=== PATIENT | male | born 1940 | race Caucasian/White ===

== ENCOUNTER 2017-12-05 11:31 | Inpatient (IN) | payer MEDICARE, BC, SELFPAY ==
[2017-12-05] VITALS (17 sets, daily range): BP systolic 127–158; BP diastolic 59–76; PULSE 60–103; RESP 14–20; TEMP 36.6–37; O2SAT 94–98; BMI 30.8; BMI 29.9
--- NOTE | 2017-12-05 11:55 | CT_ITS ---
STUDY: CT BRAIN WITHOUT CONTRAST REASON FOR EXAM: Male, 76 years old. Possible CVA. RADIATION DOSAGE (If Supplied By Facility): CTDIvol = ( 44.99 ) mGy, DLP = ( 897.35 ) mGycm TECHNIQUE: Transaxial CT imaging of the brain was performed without administration of intravenous contrast material. Individualized dose optimization techniques were used for this CT. COMPARISON: None. FINDINGS: Normal soft tissue structures. Evidence of prior bilateral frontal craniotomy and bur holes in the posterior right and left parietal bones. There is moderate cerebral atrophy with widening of the extra-axial spaces and ventricular dilatation. Area of encephalomalacia in the left posterior parietal lobe suggestive of old CVA. Old lacunar infarcts of basal ganglia bilaterally. Normal brainstem. Normal cerebellum. There is no intracranial hemorrhage. There are no findings of an acute ischemic infarction. Atherosclerotic calcification of the cavernous portion of the carotid arteries bilaterally. Mucosal thickening of the ethmoid sinuses bilaterally. CT/Brain/Head without Contrast IMPRESSION: Chronic involutional changes of the brain. Old encephalomalacia in the posterior aspect of the left parietal lobe. N.B. : The above information has been verbally conveyed by iKrit Baez MD to Mir Ortiz, Referring Physician, on 12/05/2017 12:16:38 (ET). Electronically Signed: Kirit Baez MD at 12:16 EDT Tel [phone], Service support , N.B. : The above information has been verbally conveyed by Kirit Baez MD to Mir Ortiz, Referring Physician, on 12/05/2017 12:16:38 (ET).
--- NOTE | 2017-12-05 11:55 | EKG12_ITS ---
Test Reason : POSS CVA Blood Pressure : / mmHG Vent. Rate : 057 BPM Atrial Rate : 228 BPM P-R Int : 000 ms QRS Dur : 138 ms QT Int : 432 ms P-R-T Axes : 087 070 038 degrees QTc Int : 420 ms Atrial flutter Right bundle branch block Abnormal ECG Confirmed by LOS CARDONA, ADRIAN ([id number]), web content editor PRICE YOUNG ([id number]) on 12/10/2017 9:02:49 AM Referred By: TYE Confirmed By:ADRIAN MADISON MD
--- NOTE | 2017-12-05 11:55 | RAD_ITS ---
STUDY: X-RAY CHEST REASON FOR EXAM: Male, 76 years old. Weakness. Difficulty walking. TECHNIQUE: Single AP portable view of the chest. COMPARISON: None. FINDINGS: EKG electrodes are seen. The lungs are clear and expanded. There is no demonstrated pleural abnormality. There is borderline cardiomegaly. Normal mediastinum and sergio. Normal visualized pulmonary arteries. There is atherosclerotic calcification of the aortic arch with tortuosity. Normal visualized thoracic spine. Normal visualized ribs, clavicles, and shoulders. There is no demonstrated abnormality of the visualized soft tissue structures of the upper abdomen. RAD/Chest 1 View IMPRESSION: No acute abnormality is seen. Electronically Signed: Kirit Baez MD at 12:24 EDT Tel [phone], Service support ,
[2017-12-05 12:08] LABS: Absolute Lymphocyte Count 2.88 X10^3/ul (0.83-4.51); Absolute Neutrophil Count 5.2 X10^3/uL (2.0-7.7); Basophil# 0.03 X10^3/uL; Basophil% 0.3 % (0-1); Eosinophil# 0.37 X10^3/uL; Hematocrit 41.8 % (40-54); Hemoglobin 13.8 g/dl (13.0-16.5); Lymphocyte # 2.88 X10^3/ul (4.0); Lymphocyte % 30.8 % (19-41); Mean Corpuscular Hgb 32.1 pg (27.0-32.0); Mean Corpuscular Volume 97.2 fL (80-94); Mean Platelet Vol. 10.8 fl (6.2-12.0); Monocyte# 0.87 X10^3/uL; Monocyte% 9.3 % (0-10); Neutrophil # 5.17 X10^3/uL (2.7-7.7); Neutrophil % 55.4 % (47-70); Platelet Count 215 K/mm3 (150-450); RBC Distribution Width CV 13.5 % (11.6-14.6); RBC Distribution Width SD 46.3 fl (35.1-43.9); White Blood Count 9.3 K/mm3 (4.4-11.0)
[2017-12-05] MEDS: 0.9% Normal Saline 1,000 ML 100 ML IV (12:11)
[2017-12-05 12:15] LABS: POSITIVE COUNT NO; POSITIVE DIFFERENTIAL NO; POSITIVE MORPHOLOGY NO
[2017-12-05 12:30] LABS: International Normalized Ratio 1.7; Prothrombin Time (Protime)PT. 19.7 SECONDS (11.7-14.9)
[2017-12-05 12:31] LABS: Partial Thromboplast Time 31.8 Seconds (24.1-36.2)
--- NOTE | 2017-12-05 13:22 | CT_ITS ---
STUDY: CTA OF THE BRAIN REASON FOR EXAM: Male, 76 years old. History of CVA. RADIATION DOSAGE (If Supplied By Facility): CTDIvol = ( 32.36 ) mGy, DLP = ( 765.94 ) mGycm TECHNIQUE: CT angiography was performed with a multi-detector CT scanner. Data acquisition was obtained from the skull base through the vertex following intravenous administration of 100 ml of Isovue 370. MIP images were reconstructed from the axial data set. Post-processing of the angiographic images was performed, with multiplanar reformation and 3D reconstruction. Individualized dose optimization techniques were used for this CT. COMPARISON: None. FINDINGS: Normal bilateral petrous carotid arteries. There is calcified plaque formation of the right cavernous carotid artery, without a cross-sectional luminal stenosis. There is calcified plaque formation of the left cavernous carotid artery, without a cross-sectional luminal stenosis. Normal right A1 segments of the anterior cerebral artery. Normal left A1 segments of the anterior cerebral artery. Normal intact anterior communicating artery (ACOM). Normal bilateral A2 segments of the anterior cerebral arteries. Normal right M1 and M2 segments of the middle cerebral arteries, with a normal M1 bifurcation. Normal left M1 and M2 segments of the middle cerebral arteries, with a normal M1 bifurcation. Normal right posterior communicating artery (PCOM). Normal left posterior communicating artery (PCOM). Normal bilateral vertebral arteries. Normal basilar artery with a normal basilar bifurcation. The visualized bilateral superior cerebellar (SCA) arteries are normal. Normal bilateral P1, P2 and visualized P3 segments of the posterior cerebral arteries. There is no demonstrated aneurysm of the [place]. Encephalomalacia in the left parietal lobe. This evidence of prior bilateral frontoparietal craniotomies and bilateral evacuation. Mucosal thickening of the ethmoid sinuses bilaterally. IMPRESSION: Encephalomalacia in the left frontal parietal lobe. Prior bilateral craniotomies. Electronically Signed: Kirit Baez MD at 14:57 EDT Tel [phone], Service support , STUDY: CTA NECK WITH CONTRAST REASON FOR EXAM: Male, 76 years old. Possible CVA. RADIATION DOSAGE (If Supplied By Facility): CTDIvol = ( 32.36 ) mGy, DLP = ( 765.94 ) mGycm TECHNIQUE: CT angiography with multi-detector data acquisition was performed from the aortic arch to the skull base following intravenous administration of 100CC ml of Isovue 370 contrast. MIP images were reconstructed from the axial data set. Post-processing of the angiographic images was performed, with multiplanar reformation and 3D reconstruction. Individualized dose optimization techniques were used for this CT. COMPARISON: None. FINDINGS: Inhomogeneous enlargement of both lobes of the thyroid gland. AORTIC ARCH: There is atherosclerotic calcific plaque formation of the aortic arch and great vessels arising from the aortic arch, without a hemodynamically significant stenosis. Atherosclerotic plaque formation at the origin of the left subclavian artery and right brachiocephalic artery. RIGHT CAROTID ARTERIES: Normal right common carotid artery (CCA). Normal right common carotid bulb. There is severe atherosclerotic plaque formation of the origin of the right internal carotid artery with a near complete occlusion. Normal visualized cervical portion of the right internal carotid artery. There is moderate atherosclerotic plaque formation of the origin of the right external carotid artery with an estimated stenosis of 50-69% stenosis. LEFT CAROTID ARTERIES: Normal left common carotid artery (CCA). Normal left common carotid bulb. There is severe atherosclerotic plaque formation of the origin of the left internal carotid artery with a near complete occlusion. Normal visualized cervical portion of the left internal carotid artery. There is extensive atherosclerotic plaque formation of the origin of the left external carotid artery with an estimated stenosis of greater than 70%. VERTEBRAL ARTERIES: Normal bilateral vertebral arteries. CT/CTA Neck W/WO Contrast IMPRESSION: High-grade stenosis at the origins of both right and left internal carotid arteries. Electronically Signed: Kirit Baez MD at 15:00 EDT Tel [phone], Service support ,
--- NOTE | 2017-12-05 13:22 | CT_ITS ---
STUDY: CTA OF THE BRAIN REASON FOR EXAM: Male, 76 years old. History of CVA. RADIATION DOSAGE (If Supplied By Facility): CTDIvol = ( 32.36 ) mGy, DLP = ( 765.94 ) mGycm TECHNIQUE: CT angiography was performed with a multi-detector CT scanner. Data acquisition was obtained from the skull base through the vertex following intravenous administration of 100 ml of Isovue 370. MIP images were reconstructed from the axial data set. Post-processing of the angiographic images was performed, with multiplanar reformation and 3D reconstruction. Individualized dose optimization techniques were used for this CT. COMPARISON: None. FINDINGS: Normal bilateral petrous carotid arteries. There is calcified plaque formation of the right cavernous carotid artery, without a cross-sectional luminal stenosis. There is calcified plaque formation of the left cavernous carotid artery, without a cross-sectional luminal stenosis. Normal right A1 segments of the anterior cerebral artery. Normal left A1 segments of the anterior cerebral artery. Normal intact anterior communicating artery (ACOM). Normal bilateral A2 segments of the anterior cerebral arteries. Normal right M1 and M2 segments of the middle cerebral arteries, with a normal M1 bifurcation. Normal left M1 and M2 segments of the middle cerebral arteries, with a normal M1 bifurcation. Normal right posterior communicating artery (PCOM). Normal left posterior communicating artery (PCOM). Normal bilateral vertebral arteries. Normal basilar artery with a normal basilar bifurcation. The visualized bilateral superior cerebellar (SCA) arteries are normal. Normal bilateral P1, P2 and visualized P3 segments of the posterior cerebral arteries. There is no demonstrated aneurysm of the [place]. Encephalomalacia in the left parietal lobe. This evidence of prior bilateral frontoparietal craniotomies and bilateral evacuation. Mucosal thickening of the ethmoid sinuses bilaterally. IMPRESSION: Encephalomalacia in the left frontal parietal lobe. Prior bilateral craniotomies. Electronically Signed: Kirit Baez MD at 14:57 EDT Tel [phone], Service support , STUDY: CTA NECK WITH CONTRAST REASON FOR EXAM: Male, 76 years old. Possible CVA. RADIATION DOSAGE (If Supplied By Facility): CTDIvol = ( 32.36 ) mGy, DLP = ( 765.94 ) mGycm TECHNIQUE: CT angiography with multi-detector data acquisition was performed from the aortic arch to the skull base following intravenous administration of 100CC ml of Isovue 370 contrast. MIP images were reconstructed from the axial data set. Post-processing of the angiographic images was performed, with multiplanar reformation and 3D reconstruction. Individualized dose optimization techniques were used for this CT. COMPARISON: None. FINDINGS: Inhomogeneous enlargement of both lobes of the thyroid gland. AORTIC ARCH: There is atherosclerotic calcific plaque formation of the aortic arch and great vessels arising from the aortic arch, without a hemodynamically significant stenosis. Atherosclerotic plaque formation at the origin of the left subclavian artery and right brachiocephalic artery. RIGHT CAROTID ARTERIES: Normal right common carotid artery (CCA). Normal right common carotid bulb. There is severe atherosclerotic plaque formation of the origin of the right internal carotid artery with a near complete occlusion. Normal visualized cervical portion of the right internal carotid artery. There is moderate atherosclerotic plaque formation of the origin of the right external carotid artery with an estimated stenosis of 50-69% stenosis. LEFT CAROTID ARTERIES: Normal left common carotid artery (CCA). Normal left common carotid bulb. There is severe atherosclerotic plaque formation of the origin of the left internal carotid artery with a near complete occlusion. Normal visualized cervical portion of the left internal carotid artery. There is extensive atherosclerotic plaque formation of the origin of the left external carotid artery with an estimated stenosis of greater than 70%. VERTEBRAL ARTERIES: Normal bilateral vertebral arteries. CT/CTA Head W/WO Contrast IMPRESSION: High-grade stenosis at the origins of both right and left internal carotid arteries. Electronically Signed: Kirit Baez MD at 15:00 EDT Tel [phone], Service support ,
--- NOTE | 2017-12-05 13:24 | ED.VISSUMM ---
- ER Visit Summary Date of Service: 12/05/17 Chief Complaint: Difficulty walking and speaking History of Present Illness: The patient is a 76 M who went to bed last night at 2000 hrs. At approximately 0430 hours patient got up to urinate. He had difficulty walking and family also notes difficulty speaking. He went to bed got up this morning the symptoms continued. He had difficulty eating breakfast as they state his tongue just seemed like it was in the way. He is on Coumadin for chronic atrial fibrillation. He believes he last had a checked couple weeks ago. He has had prior head bleed and underwent craniotomy in the past. He denies any headache. No recent trauma or falls. Physical Examination: Afebrile vital signs are stable Gen: Well-nourished well-developed Head: Normocephalic atraumatic Eyes: Perrl EOMI ENT: TMs clear no rhinorrhea moist mucous membranes Neck: Supple no lymphadenopathy no JVD nontender CVS: Regular rate rhythm no murmurs normal S1-S2 Respiratory: No distress clear to auscultation bilaterally chest nontender Abdomen: Soft nontender nondistended normal bowel sounds no masses Back: Nontender Extremity: Nontender no edema Skin: Normal color no rash Neuro: alert orientated ?3 patient score 6 points on the NIH stroke scale. One point for facial palsy, 2 points for right arm motor, 2 points right motor leg, one-point dysarthria. Per the patient the right arm and leg feel numb but he states the sensation is equal from side to side upon testing Psych: Normal affect normal mood Test Results: Initial head CT is negative. Basic labs were obtained which showed a subtherapeutic INR. CTA of the head and neck was obtained. Emergency Department Course and Treatment: Patient appears to have suffered a left MCA stroke. Plan is admission to PCU. I did speak with Dr. Boss from neurology and Dr. Webb from medicine Impression: 1. Acute CVA 2. Subtherapeutic INR 3. Chronic atrial flutter/fibrillation This note was generated with [employer] dictation software. It may contain incorrect words, spelling, and punctuation that were not noted in review of the chart prior to signing ED Disposition - Plan for ED Patient: Chief Complaint: Neuro S/Sx Referrals: Marisela Jensen [Primary Care Provider] -
[2017-12-05 13:46] LABS: Anion Gap 9 (5-15); BUN 23 mg/dL (7-18); BUN/Creat Ratio 28.2 RATIO (10-20); Calcium,Total 8.5 mg/dL (8.5-10.1); Chloride 110 mmol/L (98-107); Creatinine, Serum 0.82 mg/dL (0.70-1.30); EST Glomerular Filtration Rate 97 mL/min (>60); Est Glom Filt Rate - Afr Amer 117 mL/min (>60); Estimated Creatinine Clearance 79.08 ml/min; Glucose 87 mg/dL (74-106); Potassium 5.4 mmol/L (3.5-5.1); Sodium Level 143 mmol/L (136-145)
--- NOTE | 2017-12-05 14:07 | CASEMGMT ---
Social Work Note In to complete initial assessment as pt is targeted for admission. Introduced self and role at [facility]. Pt is accompanied by his and daughter in law. Reports to live with his jean one-story home with two entry steps. DME consists of a walker, cane and shower chair. Pt uses the cane at baseline. Went to [facility] at the end of 2012 following a stroke for rehabilitation. According to the pt's [id number] he has not been able to walk on his own and they feel he will need placed at discharge. They express interest in [facility]. Pt is typically independent with ADL's, but according to the daughter in law, will not always change his clothes daily or bathe daily. No signs of neglect or abuse. Pt's PCP is Dr. Jensen, and he utilizes [facility]. Pt denies mental health diagnoses, but daughter in law states he does have depression and is prescribed an antidepressant by Dr. Jensen. Denies substance use. Inform that if pt is admitted RN MARCELINA or SW on unit will assist with discharge planning. Reviewed with ED RN Gisell HEWITT. Meli Garcia, GAS SYSTEMS WORKER, BIOINFORMATICS SCIENTIST
--- NOTE | 2017-12-05 15:10 | PCM.HP.STD ---
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 (5) DM2 (diabetes mellitus, type 2) Status: Chronic Qualifiers: Diabetes mellitus care home insulin use: without terminal block assembler use (6) Hyperlipidemia Status: Chronic Qualifiers: Hyperlipidemia type: mixed hyperlipidemia Qualified Code(s): E78.2 - Mixed hyperlipidemia (7) Gout Status: Chronic (8) BPH (benign prostatic hyperplasia) Status: Acute History of Present Illness Date of Admission: 12/05/17 Chief Complaint: speech off, R sided weakness 76-year-old gentleman with past history of atrial fib/flutter, frontal craniotomy, 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 He awoke at 4:30 AM with right leg weakness and some speech difficulty. He went back to bed. Symptoms were persistent with right-sided weakness, right facial droop, and dysarthria. Family appropriately brought him to the emergency department for evaluation. The ED, the patient was hemodynamically stable and afebrile, saturating 98% on room air, blood pressure 158/64. CBC and chemistries were acceptable: Potassium 5.4 was moderately hemolyzed. INR was 1.7. Troponin was negative. Random glucose was 87. Initial NIHSS score was 6. He had facial droop and was unable to lift R arm off bed. He underwent head CT brain attack protocol which revealed old encephalomalacia in the left temporal region, as well as old basal ganglia infarct, no bleed noted. EKG revealed atrial flutter at 60 with right bundle branch block. CXR revealed borderline cardiomegaly, clear lungs. CT angiography of head and neck revealed no evidence of intracranial or extracranial significant stenoses or aneurysm. Normal bilateral vertebral and basilar arteries, some plaque of L cavernous carotid artery, without cross luminal stenosis. Normal left M1, M2 segments of left middle cerebral artery. Upon seeing the patient, he has improved. Family reports his smile is now symmetric, no more facial droop, and he is now able to grasp with right hand as well as left right arm and left lower extremity off the bed. The patient will be admitted PCU for acute L MCA distribution CVA. Past Medical History Past Medical History (Chronic Problems): Chronic Problems HTN (hypertension) (Chronic) Atrial fibrillation (Chronic) MCFP current use of anticoagulant (Chronic) DM2 (diabetes mellitus, type 2) (Chronic) Hyperlipidemia (Chronic) Gout (Chronic) Allergies Penicillins [PCN] Allergy (Verified 12/05/17 11:38) Other Home Medications: Ambulatory Orders Medication Instructions Recorded Allopurinol 300 mg PO DAILY 12/05/17 Carvedilol 6.25 mg PO BID 12/05/17 Isosorbide Mononitrate 10 mg PO BID 12/05/17 Lisinopril [Zestril] 5 mg PO DAILY 12/05/17 Metformin HCl 1,000 mg PO BID 12/05/17 Paroxetine [Paxil] 40 mg PO QHS 12/05/17 Pravastatin [Pravachol] 20 mg PO QHS 12/05/17 Tamsulosin HCl [Flomax] 0.4 mg PO DINNER 12/05/17 Warfarin [Coumadin ([facility])] 2.5 mg PO DINNER 12/05/17 Smoking Status: Never smoker Review of Systems Neurological: Reports: - - see HPI VTE Information - Inpt Only VTE Present on Admission: No VTE Mechan Device Prophylaxis: None VTE Pharm Prophylaxis ordered?: No Reason prophylaxis not ordered:: Treatment Not Indicated - already on warfarin Patient Problems: Active and Suspected Problems Acute CVA (cerebrovascular accident) (Acute) BPH (benign prostatic hyperplasia) (Acute) Subjective: Pleasant, NAD Objective: non toxic appearing - Physical Exam General: Alert, Cooperative, No apparent distress HEENT: Atraumatic, PERRLA, EOMI Oral: Moist Mucosa Neck: Supple, No JVD, Negative Carotid Bruits Lungs: Clear to auscultation Cardiovascular: Irregular Rate, No rub noted, No Gallop Abdomen: Bowel Sounds Present, Non Tender, Obese Extremities: No edema Skin: No rashes Neurological: - - face symmetric tongue midline decreased grasp 3/5 R hand, mildly decreased strength R upper and lower extremities, toes downgoing, reflexes symmetric mild dysarthria no aphasia Vital Signs Temp Pulse Resp BP Pulse Ox 98.2 F 67 18 130/65 H 94 12/05/17 12:30 12/05/17 15:00 12/05/17 15:00 12/05/17 15:00 12/05/17 15:00 Oxygen Delivery Method Room Air Weight: 220 lb 14.451 oz Body Mass Index (BMI) 30.8 Finger Stick Blood Glucose 87 Laboratory Tests Past 24 Hrs 12/05/17 12/05/17 12/05/17 11:42 11:42 11:42 WBC 9.3 RBC 4.30 L Hgb 13.8 Hct 41.8 MCV 97.2 H MCH 32.1 H MCHC 33.0 RDW 13.5 RDW Differential 46.3 H Plt Count 215 MPV 10.8 Immature Gran % (Auto) 0.200 Neut % (Auto) 55.4 Lymph % (Auto) 30.8 Mower % (Auto) 9.3 Eos % (Auto) 4.0 Baso % (Auto) 0.3 Absolute Neuts (auto) 5.2 Absolute Lymphs (auto) 2.88 Total Counted Not Reportable PT Cancelled INR Cancelled APTT Cancelled Sodium Cancelled Potassium Cancelled Chloride Cancelled Carbon Dioxide Cancelled Anion Gap Cancelled BUN Cancelled Creatinine Cancelled Estim Creat Clear Calc Cancelled Est GFR (MDRD) Af Amer Cancelled Est GFR (MDRD) Non-Af Cancelled BUN/Creatinine Ratio Cancelled Glucose Cancelled Calcium Cancelled Troponin I Cancelled 12/05/17 12/05/17 12/05/17 12:17 12:17 13:15 WBC RBC Hgb Hct MCV MCH MCHC RDW RDW Differential Plt Count MPV Immature Gran % (Auto) Neut % (Auto) Lymph % (Auto) Mower % (Auto) Eos % (Auto) Baso % (Auto) Absolute Neuts (auto) Absolute Lymphs (auto) Total Counted PT 19.7 H INR 1.7 APTT 31.8 Sodium Cancelled 143 Potassium Cancelled 5.4 H Chloride Cancelled 110 H Carbon Dioxide Cancelled 24.0 Anion Gap Cancelled 9 BUN Cancelled 23 H Creatinine Cancelled 0.82 Estim Creat Clear Calc Cancelled 79.08 Est GFR (MDRD) Af Amer Cancelled 117 Est GFR (MDRD) Non-Af Cancelled 97 BUN/Creatinine Ratio Cancelled 28.2 H Glucose Cancelled 87 Calcium Cancelled 8.5 Troponin I Cancelled < 0.02 Assessment/Plan Active and Suspected Problems Acute CVA (cerebrovascular accident) (Acute) BPH (benign prostatic hyperplasia) (Acute) 76-year-old gentleman with past history of atrial fib/flutter, frontal craniotomy, 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 Onset 4:30 AM last night, patient not a candidate for thrombolytics (outside of window and on warfarin). NIHSS score is 6. CTA of head and neck did not reveal any vessel cut off. INR is 1.7. Patient is on statin therapy. 1. Acute CVA, left MCA distribution. Presumed thromboembolic in setting of afib; small vessel disease not excluded PLAN: Admit PCU Telemetry monitoring Echocardiogram Continue warfarin Continue Pravachol, glycemic control with NovoLog scale, permissive hypertension A1c, fasting lipids in a.m. 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 Hypertension Permissive hypertension in setting of acute CVA Continue home carvedilol, Isordil, lisinopril but would not give unless SBP greater than 220 3. DM2 on metformin (s/p CTA head and neck) Novolog scale AC/HS -- resume metformin at discharge 4. HPL pravachol -- consider change to atorvastatin 40 mg HS 5. gout - allopurinol 6. DVT prophylaxis -- already anticoagulated Patient passed swallow evaluation in the ED; will initiate diabetic diet. Will hydrate a few hours post CTA examinations.
--- NOTE | 2017-12-05 15:17 | HP.PCM_ITS ---
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 (5) DM2 (diabetes mellitus, type 2) Status: Chronic Qualifiers: Diabetes mellitus fdc insulin use: without oysterman use (6) Hyperlipidemia Status: Chronic Qualifiers: Hyperlipidemia type: mixed hyperlipidemia Qualified Code(s): E78.2 - Mixed hyperlipidemia (7) Gout Status: Chronic (8) BPH (benign prostatic hyperplasia) Status: Acute History of Present Illness Date of Admission: 12/05/17 Chief Complaint: speech off, R sided weakness 76-year-old gentleman with past history of atrial fib/flutter, frontal craniotomy, 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 He awoke at 4:30 AM with right leg weakness and some speech difficulty. He went back to bed. Symptoms were persistent with right-sided weakness, right facial droop, and dysarthria. Family appropriately brought him to the emergency department for evaluation. The ED, the patient was hemodynamically stable and afebrile, saturating 98% on room air, blood pressure 158/64. CBC and chemistries were acceptable: Potassium 5.4 was moderately hemolyzed. INR was 1.7. Troponin was negative. Random glucose was 87. Initial NIHSS score was 6. He had facial droop and was unable to lift R arm off bed. He underwent head CT brain attack protocol which revealed old encephalomalacia in the left temporal region, as well as old basal ganglia infarct, no bleed noted. EKG revealed atrial flutter at 60 with right bundle branch block. CXR revealed borderline cardiomegaly, clear lungs. CT angiography of head and neck revealed no evidence of intracranial or extracranial significant stenoses or aneurysm. Normal bilateral vertebral and basilar arteries, some plaque of L cavernous carotid artery, without cross luminal stenosis. Normal left M1, M2 segments of left middle cerebral artery. Upon seeing the patient, he has improved. Family reports his smile is now symmetric, no more facial droop, and he is now able to grasp with right hand as well as left right arm and left lower extremity off the bed. The patient will be admitted PCU for acute L MCA distribution CVA. Past Medical History Past Medical History (Chronic Problems): Chronic Problems HTN (hypertension) (Chronic) Atrial fibrillation (Chronic) shelter current use of anticoagulant (Chronic) DM2 (diabetes mellitus, type 2) (Chronic) Hyperlipidemia (Chronic) Gout (Chronic) Allergies Penicillins [PCN] Allergy (Verified 12/05/17 11:38) Other Home Medications: Ambulatory Orders Medication Instructions Recorded Allopurinol 300 mg PO DAILY 12/05/17 Carvedilol 6.25 mg PO BID 12/05/17 Isosorbide Mononitrate 10 mg PO BID 12/05/17 Lisinopril [Zestril] 5 mg PO DAILY 12/05/17 Metformin HCl 1,000 mg PO BID 12/05/17 Paroxetine [Paxil] 40 mg PO QHS 12/05/17 Pravastatin [Pravachol] 20 mg PO QHS 12/05/17 Tamsulosin HCl [Flomax] 0.4 mg PO DINNER 12/05/17 Warfarin [Coumadin ([facility])] 2.5 mg PO DINNER 12/05/17 Smoking Status: Never smoker Review of Systems Neurological: Reports: - - see HPI VTE Information - Inpt Only VTE Present on Admission: No VTE Mechan Device Prophylaxis: None VTE Pharm Prophylaxis ordered?: No Reason prophylaxis not ordered:: Treatment Not Indicated - already on warfarin Patient Problems: Active and Suspected Problems Acute CVA (cerebrovascular accident) (Acute) BPH (benign prostatic hyperplasia) (Acute) Subjective: Pleasant, NAD Objective: non toxic appearing - Physical Exam General: Alert, Cooperative, No apparent distress HEENT: Atraumatic, PERRLA, EOMI Oral: Moist Mucosa Neck: Supple, No JVD, Negative Carotid Bruits Lungs: Clear to auscultation Cardiovascular: Irregular Rate, No rub noted, No Gallop Abdomen: Bowel Sounds Present, Non Tender, Obese Extremities: No edema Skin: No rashes Neurological: - - face symmetric tongue midline decreased grasp 3/5 R hand, mildly decreased strength R upper and lower extremities, toes downgoing, reflexes symmetric mild dysarthria no aphasia Vital Signs Temp Pulse Resp BP Pulse Ox 98.2 F 67 18 130/65 H 94 12/05/17 12:30 12/05/17 15:00 12/05/17 15:00 12/05/17 15:00 12/05/17 15:00 Oxygen Delivery Method Room Air Weight: 220 lb 14.451 oz Body Mass Index (BMI) 30.8 Finger Stick Blood Glucose 87 Laboratory Tests Past 24 Hrs 12/05/17 12/05/17 12/05/17 11:42 11:42 11:42 WBC 9.3 RBC 4.30 L Hgb 13.8 Hct 41.8 MCV 97.2 H MCH 32.1 H MCHC 33.0 RDW 13.5 RDW Differential 46.3 H Plt Count 215 MPV 10.8 Immature Gran % (Auto) 0.200 Neut % (Auto) 55.4 Lymph % (Auto) 30.8 [place] % (Auto) 9.3 Eos % (Auto) 4.0 Baso % (Auto) 0.3 Absolute Neuts (auto) 5.2 Absolute Lymphs (auto) 2.88 Total Counted Not Reportable PT Cancelled INR Cancelled APTT Cancelled Sodium Cancelled Potassium Cancelled Chloride Cancelled Carbon Dioxide Cancelled Anion Gap Cancelled BUN Cancelled Creatinine Cancelled Estim Creat Clear Calc Cancelled Est GFR (MDRD) Af Amer Cancelled Est GFR (MDRD) Non-Af Cancelled BUN/Creatinine Ratio Cancelled Glucose Cancelled Calcium Cancelled Troponin I Cancelled 12/05/17 12/05/17 12/05/17 12:17 12:17 13:15 WBC RBC Hgb Hct MCV MCH MCHC RDW RDW Differential Plt Count MPV Immature Gran % (Auto) Neut % (Auto) Lymph % (Auto) [place] % (Auto) Eos % (Auto) Baso % (Auto) Absolute Neuts (auto) Absolute Lymphs (auto) Total Counted PT 19.7 H INR 1.7 APTT 31.8 Sodium Cancelled 143 Potassium Cancelled 5.4 H Chloride Cancelled 110 H Carbon Dioxide Cancelled 24.0 Anion Gap Cancelled 9 BUN Cancelled 23 H Creatinine Cancelled 0.82 Estim Creat Clear Calc Cancelled 79.08 Est GFR (MDRD) Af Amer Cancelled 117 Est GFR (MDRD) Non-Af Cancelled 97 BUN/Creatinine Ratio Cancelled 28.2 H Glucose Cancelled 87 Calcium Cancelled 8.5 Troponin I Cancelled < 0.02 Assessment/Plan Active and Suspected Problems Acute CVA (cerebrovascular accident) (Acute) BPH (benign prostatic hyperplasia) (Acute) 76-year-old gentleman with past history of atrial fib/flutter, frontal craniotomy, 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 Onset 4:30 AM last night , patient not a candidate for thrombolytics (outside of window and on warfarin) . NIHSS score is 6. CTA of head and neck did not reveal any vessel cut off. INR is 1.7. Patient is on statin therapy. 1. Acute CVA, left MCA distribution. Presumed thromboembolic in setting of afib; small vessel disease not excluded PLAN: Admit PCU Telemetry monitoring Echocardiogram Continue warfarin Continue Pravachol, glycemic control with NovoLog scale, permissive hypertension A1c, fasting lipids in a.m. 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 Hypertension Permissive hypertension in setting of acute CVA Continue home carvedilol, Isordil, lisinopril but would not give unless SBP greater than 220 3. DM2 on metformin (s/p CTA head and neck) Novolog scale AC/HS -- resume metformin at discharge 4. HPL pravachol -- consider change to atorvastatin 40 mg HS 5. gout - allopurinol 6. DVT prophylaxis -- already anticoagulated Patient passed swallow evaluation in the ED; will initiate diabetic diet. Will hydrate a few hours post CTA examinations.
--- NOTE | 2017-12-05 16:23 | ECHOD_ITS ---
Reason For Study: TIA/Stroke Procedure This was a 2D Doppler, Color Flow transthoracic echocardiogram. The study was technically difficult. Attempted bubble study twice. Exam performed portable in patient room. Left Ventricle Normal LV size. Left ventricular systolic function is normal. The estimated ejection fraction is 55 %. Unable to assess diastolic dysfunction. Right Ventricle Mildly dilated right ventricle. Normal systolic function. Atria The left atrium is moderately enlarged. Normal right atrium. Mitral Valve There is mild to moderate mitral annular calcification. Normal mitral valve. Tricuspid Valve Normal tricuspid valve. Mild to moderate (1-2+) tricuspid valve insufficiency. Pulmonary artery systolic pressure is 51 mmHg. Aortic Valve Trisinus/trileaflet aortic valve. Mild focal aortic valve calcification. Pulmonic Valve Normal pulmonic valve. Trivial pulmonic valve insufficiency. Great Vessels Normal aortic root. The pulmonary artery is normal size. Normal inferior vena cava. Pericardium/Pleural No pericardial effusion. Medication Performed a rapid injection of agitated mix of 9 cc saline and 1cc air to assess for atrial septal defect. MMode/2D Measurements & Calculations LVIDd: 4.1 cm IVSd: 1.2 cm Ao root diam: 3.1 cm LVIDs: 2.4 cm LVPWd: 1.1 cm LA dimension: 5.4 cm FS: 40.8 % LAV(MOD-bp): 63.5 ml LAV(MOD-bp) Indexed: 28.9 ml/m2 LA A4 area: 26.5 cm2 RA A4 area: 22.9 cm2 LAV(MOD-sp2): 56.8 ml LAV(MOD-sp4): 71.3 ml Doppler Measurements & Calculations MV E max eleno: 102.4 cm/sec Ao V2 max: 131.4 cm/sec LV V1 max: 95.0 cm/sec Ao max P.9 mmHg LV V1 max P.6 mmHg Ao V2 mean: 85.1 cm/sec Ao mean P.3 mmHg Ao V2 VTI: 26.0 cm PA V2 max: 79.5 cm/sec PI end-d eleno: 91.3 cm/sec TR max eleno: 339.0 cm/sec TR max P.1 mmHg Interpretation Summary Normal LV size. Left ventricular systolic function is normal. The estimated ejection fraction is 55 %. The left atrium is moderately enlarged. Mild to moderate (1-2+) tricuspid valve insufficiency. Ordering Physician: Brittany Webb Referring Physician: Marisela Jensen Performed By: Valeria Vallecillo, STACY, RVT
--- NOTE | 2017-12-05 16:23 | MRI_ITS ---
STUDY: MRI BRAIN WITHOUT CONTRAST REASON FOR EXAM: Male, 76 years old. CVA, leg weakness. TECHNIQUE: Standardized multiplanar fat and water weighted pulse sequences were obtained. COMPARISON: None. FINDINGS: There is moderate cerebral atrophy with widening of the extra-axial spaces and ventricular dilatation. There are multiple white matter hyperintensities, distributed throughout the deep white matter tracts of the cerebral hemispheres, consistent with moderate chronic white matter ischemic changes. There is left predominantly parietal encephalomalacia from previous infarct. Bilateral temporal blooming artifact from postsurgical changes of the calvarium are present. There is no evidence for recent intracranial ischemia or other cause of cytotoxic edema on diffusion weighted imaging (DWI). Normal bilateral basal ganglia. Normal thalami. There is no extra-axial fluid accumulation. Normal flow voids within the major intracranial circulation suggesting patency by spin echo criteria. Normal sella turcica, pituitary gland, infundibular stalk, optic chiasm and hypothalamus. Normal tectal plate and pineal gland. There are chronic white matter ischemic changes of the robert. The midbrain and medulla are otherwise normal. Normal cerebellum. There are large basal cisterns. Small left mastoid effusion is present. Normal bilateral internal auditory canals. No demonstrated orbital abnormality, within the constraints of a routine brain study. Normal visualized paranasal sinuses. Normal calvarium and skull base. Normal visualized soft tissue structures. Normal visualized upper cervical spine. MRI/Brain without Contrast IMPRESSION: 1. Left parietal encephalomalacia with no evidence of surrounding acute ischemia or intraparenchymal bleed. Senescent changes as above. Electronically Signed: Eric Rodarte DO at 20:34 EDT , Service support ,
[2017-12-05 17:12] LABS: Thyroid Stim Hormone (TSH) 2.07 uIU/mL (0.358-3.74)
--- NOTE | 2017-12-05 17:19 | ED.RN ---
lab called and stated that glucose did not go through at correct time. 87 result was from 12:15 pm.
[2017-12-05 17:31] LABS: Bedside Glucose 87 mg/dL (70-110)
[2017-12-05 17:40] LABS: Bedside Glucose 126 mg/dL (70-110)
[2017-12-05] MEDS: Tamsulosin HCl 0.4 MG Capsule PO (18:43)
[2017-12-05 20:51] LABS: Bedside Glucose 150 mg/dL (70-110)
[2017-12-05] MEDS: Carvedilol 6.25 MG Tablet PO (21:06)
[2017-12-05] MEDS: Pravastatin 20 MG Tablet PO (21:06)
[2017-12-05] MEDS: Isosorbide Mononitrate 20 MG Tablet 10 MG PO (21:07)
[2017-12-06] VITALS (12 sets, daily range): BP systolic 121–151; BP diastolic 60–89; PULSE 56–77; RESP 16–17; TEMP 36.6–36.9; O2SAT 92–98; BMI 29.9
[2017-12-06 06:10] LABS: Absolute Lymphocyte Count 3.33 X10^3/ul (0.83-4.51); Absolute Neutrophil Count 4.3 X10^3/uL (2.0-7.7); Basophil# 0.02 X10^3/uL; Basophil% 0.2 % (0-1); Eosinophil# 0.38 X10^3/uL; Eosinophils% 4.4 % (0-5); Hematocrit 38.6 % (40-54); Hemoglobin 12.9 g/dl (13.0-16.5); Lymphocyte # 3.33 X10^3/ul (4.0); Lymphocyte % 38.5 % (19-41); Mean Corp Hgb Conc 33.4 g/gl (32-36); Mean Corpuscular Hgb 32.7 pg (27.0-32.0); Mean Corpuscular Volume 97.7 fL (80-94); Mean Platelet Vol. 10.1 fl (6.2-12.0); Monocyte# 0.62 X10^3/uL; Monocyte% 7.2 % (0-10); Neutrophil # 4.27 X10^3/uL (2.7-7.7); Neutrophil % 49.5 % (47-70); Platelet Count 194 K/mm3 (150-450); RBC Distribution Width CV 13.7 % (11.6-14.6); RBC Distribution Width SD 48.8 fl (35.1-43.9); Red Blood Count 3.95 M/mm3 (4.6-6.2); White Blood Count 8.6 K/mm3 (4.4-11.0)
[2017-12-06 06:11] LABS: POSITIVE COUNT NO; POSITIVE DIFFERENTIAL NO; POSITIVE MORPHOLOGY NO
[2017-12-06 06:32] LABS: Anion Gap 7 (5-15); BUN 18 mg/dL (7-18); BUN/Creat Ratio 20.6 RATIO (10-20); Calcium,Total 8.2 mg/dL (8.5-10.1); Chloride 109 mmol/L (98-107); Cholesterol 102 mg/dL (200); Creatinine, Serum 0.87 mg/dL (0.70-1.30); EST Glomerular Filtration Rate 90 mL/min (>60); Est Glom Filt Rate - Afr Amer 109 mL/min (>60); Estimated Creatinine Clearance 74.53 ml/min; Glucose 106 mg/dL (74-106); High Density Lipoprotein 30 mg/dL; Magnesium 1.6 mg/dL (1.6-2.6); Potassium 4.2 mmol/L (3.5-5.1); Sodium Level 143 mmol/L (136-145); Triglycerides 178 mg/dL; Very Low Density Lipoprotein 36 mg/dL (5-40)
[2017-12-06 06:51] LABS: Bedside Glucose 112 mg/dL (70-110)
--- NOTE | 2017-12-06 07:24 | PCM.PROGNOTE ---
Patient Problems: Active and Suspected Problems Acute CVA (cerebrovascular accident) (Acute) BPH (benign prostatic hyperplasia) (Acute) Subjective: Patient is a 76-year-old male with a past medical history of hypertension, chronic atrial fibrillation, chronic anticoagulation, diabetes mellitus type 2, hyperlipidemia, MELISSA (non-compliant with CPAP recently) gout, frontal craniotomy for subdural hematoma, history of CVAs of the basal ganglion and left MCA distribution and BPH who presented to the [facility] emergency room on 12/05/2017 with complaints of right-sided weakness and difficulty speaking. CT brain in the emergency room revealed old encephalomalacia in the left temporal region, old basal ganglia infarct and no acute findings. EKG showed atrial flutter at 60 bpm with a right bundle branch block. Chest x-ray showed no infiltrates, pleural effusions or pulmonary vascular congestion. CTA of the head and neck showed no evidence of intracranial or extracranial significant stenoses or aneurysm. INR was subtherapeutic at 1.7. He was admitted to PCU with a dx of suspected acute L MCA distribution CVA. MRI on 12/05 showed no acute findings but it was done soon after the initial event. Dr. Boss has been consulted. Echocardiogram shows a normal left ventricular ejection fraction of 55% with no wall motion abnormalities and no evidence of left ventricular hypertrophy. The left atrium is moderately enlarged. There is mild to moderate TR. HDL was 30 and the LDL was 36 with triglycerides of 178. TSH was normal. He was seen by Dr. Boss this AM who ordered a EEG which has been done but there is no report yet. His tells me that his speech today is more slurred and his R side is definitely weaker than prior to yesterday. He was ambulating without an assistive device at home prior to this event. Has had no problem swallowing in the past. - Physical Exam General: Alert, Cooperative, Well developed, Well nourished, - - speech is dysarthric and difficult to understand at times. HEENT: Atraumatic, PERRLA, EOMI, Normocephalic Oral: No Gingival or Mucosal Lesions/ Ulcerations, Dry Mucosa - tongue protrudes on the midline without deviation Neck: Supple, No Nodes, No Nuchal Rigidity, Trachea Midline, Carotid Bruit, Right - soft Lungs: Clear to auscultation, No wheeze, No rales Cardiovascular: Regular rate, Normal S1, Normal S2, No murmurs, Irregular Rate, No rub noted, No Gallop, - - Telemetry shows fib/flutter with controlled VR Abdomen: Bowel Sounds Present, Soft, Non Tender, Non-Distended Extremities: No clubbing, No cyanosis, No edema, No Calf Tenderness, Peripheral Pulses Normal Skin: No rashes, No breakdown Musculoskeletal: No Muscle Wasting Neurological: Cranial nerves II-XII grossly intact, - - He has weakness of the RUE 3/5...with drift. The RLE is 4/5. Has ataxia with the RLE. No R side neglect. No aphasia, no visual field cuts. Psych/Mental Status: Normal Affect, Appropriate Vital Signs Temp Pulse Resp BP Pulse Ox 97.9 F 69 17 151/89 H 92 12/06/17 05:00 12/06/17 05:00 12/06/17 05:00 12/06/17 05:00 12/06/17 05:00 Oxygen Delivery Method Room Air Weight: 214 lb 4.629 oz Body Mass Index (BMI) 29.9 Intake and Output for Last 24 Hours 12/04/17 12/05/17 12/06/17 23:59 23:59 23:59 Intake Total 120 / 120 360 / 360 Output Total 750 / 750 Balance 120 / 120 -390 / -390 Laboratory Tests Past 24 Hrs 12/05/17 12/06/17 12/06/17 16:38 05:45 05:45 WBC 8.6 RBC 3.95 L Hgb 12.9 L Hct 38.6 L MCV 97.7 H MCH 32.7 H MCHC 33.4 RDW 13.7 RDW Differential 48.8 H Plt Count 194 MPV 10.1 Immature Gran % (Auto) 0.200 Neut % (Auto) 49.5 Lymph % (Auto) 38.5 [place] % (Auto) 7.2 Eos % (Auto) 4.4 Baso % (Auto) 0.2 Absolute Neuts (auto) 4.3 Absolute Lymphs (auto) 3.33 Total Counted Not Reportable Sodium 143 Potassium 4.2 Chloride 109 H Carbon Dioxide 27.0 Anion Gap 7 BUN 18 Creatinine 0.87 Estim Creat Clear Calc 74.53 Est GFR (MDRD) Af Amer 109 Est GFR (MDRD) Non-Af 90 BUN/Creatinine Ratio 20.6 H Glucose 106 Hemoglobin A1c Calcium 8.2 L Magnesium 1.6 Troponin I < 0.02 Triglycerides 178 Cholesterol 102 LDL Cholesterol 36 VLDL Cholesterol 36 HDL Cholesterol 30 L TSH 2.07 12/06/17 05:45 WBC RBC Hgb Hct MCV MCH MCHC RDW RDW Differential Plt Count MPV Immature Gran % (Auto) Neut % (Auto) Lymph % (Auto) [place] % (Auto) Eos % (Auto) Baso % (Auto) Absolute Neuts (auto) Absolute Lymphs (auto) Total Counted Sodium Potassium Chloride Carbon Dioxide Anion Gap BUN Creatinine Estim Creat Clear Calc Est GFR (MDRD) Af Amer Est GFR (MDRD) Non-Af BUN/Creatinine Ratio Glucose Hemoglobin A1c Pending Calcium Magnesium Troponin I Triglycerides Cholesterol LDL Cholesterol VLDL Cholesterol HDL Cholesterol TSH POC Glucose 12/06/17 12/05/17 12/05/17 06:43 20:43 17:37 POC Glucose 112 H 150 H 126 H Medical Necessity - Tobacco Use Smoking Status: Never smoker Assessment/Plan Active and Suspected Problems Acute CVA (cerebrovascular accident) (Acute) BPH (benign prostatic hyperplasia) (Acute) Impressions 1. suspect he did have a L MCA stroke - deficits and dysarthria are definitely worse per his and he required max assist to ambulate today without an AD and assist of one with FWW....normally does not use an AD in the house but takes a cane when he leaves the house. He is unsteady standing. PT feels he would benefit from a SNF.....possibly rehab 2. subtherapeutic INR 3. MELISSA - non-compliant with CPAP and has not had a sleep study for > 10 years 4. Hx of subdural hematoma in the past with craniotomy to evacuate 5. old Left MCA stroke 6. CAF - rate controlled. 7. LAE 8. chronic anticoagulation with Warfarin - Agreeable to Apixaban going forward 9. HTN 10. DM II - controlled with a HGBA1C of 6.7% 11. Hypomagnesemia 12. Hyperlipidemia-controlled 13. BPH DC warfarin and check the INR in the AM....if it is less than 2 start Eliquis Supplement magnesium to keep the mag around 2. Await the results of the EEG appreciate Dr. Boss's input Recheck the lab in the AM check a UA Will need a new PSG - he is agreeable Consider repeat CTB in 48 hours Code Visit Inpatient E&M: 74272 Subs Hosp L3
[2017-12-06 09:32] LABS: Hemoglobin A1c 6.7 % (4.2-6.3)
--- NOTE | 2017-12-06 10:13 | CON.PCM_ITS ---
Reason for Consult Date of Consultation: 12/06/17 Reason for Consultation: cva History of Present Illness: The patient is a 76 year old right handed male with history of left mca infarct , lives at home independent with with. reports since he has had increaseing difficulty starting with difficulty getting out of bed and increased right sided weakness which has slowly improved. also reports his language is worse since . on coumadin for afib, inr subtherapeutic upon presentation, pt reports good compliance with meds. reports sdh/crani '14,(on coumadin) treated in [place], cva about '16. 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 He awoke at 4:30 AM with right leg weakness and some speech difficulty. He went back to bed. Symptoms were persistent with right-sided weakness, right facial droop, and dysarthria. Family appropriately brought him to the emergency department for evaluation. The ED, the patient was hemodynamically stable and afebrile, saturating 98% on room air, blood pressure 158/64. CBC and chemistries were acceptable: Potassium 5.4 was moderately hemolyzed. INR was 1.7. Troponin was negative. Random glucose was 87. Initial NIHSS score was 6. He had facial droop and was unable to lift R arm off bed. He underwent head CT brain attack protocol which revealed old encephalomalacia in the left temporal region, as well as old basal ganglia infarct, no bleed noted. EKG revealed atrial flutter at 60 with right bundle branch block. CXR revealed borderline cardiomegaly, clear lungs. CT angiography of head and neck revealed no evidence of intracranial or extracranial significant stenoses or aneurysm. Normal bilateral vertebral and basilar arteries, some plaque of L cavernous carotid artery, without cross luminal stenosis. Normal left M1, M2 segments of left middle cerebral artery. Upon seeing the patient, he has improved. Family reports his smile is now symmetric, no more facial droop, and he is now able to grasp with right hand as well as left right arm and left lower extremity off the bed. The patient will be admitted PCU for acute L MCA distribution CVA. 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) DM2 (diabetes mellitus, type 2) (Chronic) Hyperlipidemia (Chronic) Gout (Chronic) Allergies Penicillins [PCN] Allergy (Verified 12/05/17 11:38) Other Home Medications: Ambulatory Orders Medication Instructions Recorded Allopurinol 300 mg PO DAILY 12/05/17 Carvedilol 6.25 mg PO BID 12/05/17 Isosorbide Mononitrate 10 mg PO BID 12/05/17 Lisinopril [Zestril] 5 mg PO DAILY 12/05/17 Metformin HCl 1,000 mg PO BID 12/05/17 Paroxetine [Paxil] 40 mg PO QHS 12/05/17 Pravastatin [Pravachol] 20 mg PO QHS 12/05/17 Tamsulosin HCl [Flomax] 0.4 mg PO DINNER 12/05/17 Warfarin [Coumadin ([facility])] 2.5 mg PO DINNER 12/05/17 Lives: Spouse/ Significant Other Smoking Status: Never smoker Alcohol: None Review of Systems Constitutional: Denies: Chills, Fever, Weight Change HEENT: Denies: Head Aches, Sinus Congestion, Sinus Drainage Cardiovascular: Denies: Chest Pain, Palpitations Respiratory: Denies: Cough, Shortness of breath at rest, Sputum production Gastrointestinal: Denies: Abdominal Pain, Nausea, Vomiting Genitourinary: Denies: Dysuria Musculoskeletal: Denies: Joint Pain, Joint Tenderness Skin: Denies: Rash, Wounds Neurological: Denies: Numbness, Tingling, Focal weakness Psychiatric: Denies: Anxiety, Depression, Homicidal Ideations, Suicidal Ideations Hematologic/ Lymphatic: Denies: Easy Bruising, Easy Bleeding Patient Problems: Active and Suspected Problems Acute CVA (cerebrovascular accident) (Acute) BPH (benign prostatic hyperplasia) (Acute) - Physical Exam General: Alert, Oriented x3, Cooperative, No apparent distress Neurological: - - mild right hemiparesis dysarthric no field cut no aphasia Vital Signs Temp Pulse Resp BP Pulse Ox 36.9 C 75 16 126/61 H 95 12/06/17 09:00 12/06/17 09:00 12/06/17 09:00 12/06/17 09:00 12/06/17 09:00 Oxygen Delivery Method Room Air Weight: 97.2 kg Body Mass Index (BMI) 29.9 Intake and Output for Last 24 Hours 12/04/17 12/05/17 12/06/17 23:59 23:59 23:59 Intake Total 120 / 120 360 / 360 Output Total 750 / 750 Balance 120 / 120 -390 / -390 Laboratory Tests Past 24 Hrs 12/05/17 12/06/17 12/06/17 16:38 05:45 05:45 WBC 8.6 RBC 3.95 L Hgb 12.9 L Hct 38.6 L MCV 97.7 H MCH 32.7 H MCHC 33.4 RDW 13.7 RDW Differential 48.8 H Plt Count 194 MPV 10.1 Immature Gran % (Auto) 0.200 Neut % (Auto) 49.5 Lymph % (Auto) 38.5 [place] % (Auto) 7.2 Eos % (Auto) 4.4 Baso % (Auto) 0.2 Absolute Neuts (auto) 4.3 Absolute Lymphs (auto) 3.33 Total Counted Not Reportable Sodium 143 Potassium 4.2 Chloride 109 H Carbon Dioxide 27.0 Anion Gap 7 BUN 18 Creatinine 0.87 Estim Creat Clear Calc 74.53 Est GFR (MDRD) Af Amer 109 Est GFR (MDRD) Non-Af 90 BUN/Creatinine Ratio 20.6 H Glucose 106 Hemoglobin A1c Calcium 8.2 L Magnesium 1.6 Troponin I < 0.02 Triglycerides 178 Cholesterol 102 LDL Cholesterol 36 VLDL Cholesterol 36 HDL Cholesterol 30 L TSH 2.07 12/06/17 05:45 WBC RBC Hgb Hct MCV MCH MCHC RDW RDW Differential Plt Count MPV Immature Gran % (Auto) Neut % (Auto) Lymph % (Auto) [place] % (Auto) Eos % (Auto) Baso % (Auto) Absolute Neuts (auto) Absolute Lymphs (auto) Total Counted Sodium Potassium Chloride Carbon Dioxide Anion Gap BUN Creatinine Estim Creat Clear Calc Est GFR (MDRD) Af Amer Est GFR (MDRD) Non-Af BUN/Creatinine Ratio Glucose Hemoglobin A1c 6.7 H Calcium Magnesium Troponin I Triglycerides Cholesterol LDL Cholesterol VLDL Cholesterol HDL Cholesterol TSH POC Glucose 12/06/17 12/05/17 12/05/17 06:43 20:43 17:37 POC Glucose 112 H 150 H 126 H mri reviewed, left mca distribution encephalomalacia, no acute, also right peduncular chronic infarct Assessment/Plan Active and Suspected Problems Acute CVA (cerebrovascular accident) (Acute) BPH (benign prostatic hyperplasia) (Acute) chronic, right mild hemiparesis due to old left mca infarct, also right crani due to sdh, on coumadin for afib, inr subtherapeutic no new infarct on mri check eeg, possible decompensation due to seizure or metabolic perturbation conisder keppra 500mg bid check ua consider eliquis instead of coumadin
[2017-12-06] MEDS: Carvedilol 6.25 MG Tablet PO ×2 (10:32→20:59)
[2017-12-06] MEDS: Lisinopril 5 MG Tablet PO (10:32)
[2017-12-06] MEDS: Allopurinol 300 MG Tablet PO (10:32)
[2017-12-06] MEDS: Isosorbide Mononitrate 20 MG Tablet 10 MG PO ×2 (12:40→20:59)
[2017-12-06 12:45] LABS: Bedside Glucose 150 mg/dL (70-110)
--- NOTE | 2017-12-06 15:45 | CASEMGMT ---
Family was here, asked to speak w/SW, family is interested in inpt rehab now. SW called inpt rehab, message left. SW called , message left, let her know SW will follow up w/her tomorrow. CONCEPCION Olsen, CANVAS SHRINKER
[2017-12-06] MEDS: Tamsulosin HCl 0.4 MG Capsule PO ×2 (17:26)
[2017-12-06 17:36] LABS: Bedside Glucose 136 mg/dL (70-110)
[2017-12-06] MEDS: Pravastatin 20 MG Tablet PO (21:00)
[2017-12-06 21:11] LABS: Bedside Glucose 143 mg/dL (70-110)
[2017-12-07] VITALS (7 sets, daily range): BP systolic 99–145; BP diastolic 65–74; PULSE 60–77; RESP 16–20; TEMP 36.4–36.7; O2SAT 93–96; BMI 29.9
--- NOTE | 2017-12-07 07:04 | PCM.PROGNOTE ---
Patient Problems: Active and Suspected Problems Acute CVA (cerebrovascular accident) (Acute) BPH (benign prostatic hyperplasia) (Acute) Subjective: Afebrile, stable vital signs. - Physical Exam Vital Signs Temp Pulse Resp BP Pulse Ox 97.5 F L 61 16 144/66 H 93 12/07/17 03:54 12/07/17 03:54 12/07/17 03:54 12/07/17 03:54 12/07/17 03:54 Oxygen Delivery Method Room Air Weight: 214 lb 4.629 oz Body Mass Index (BMI) 29.9 Intake and Output for Last 24 Hours 12/05/17 12/06/17 12/07/17 23:59 23:59 23:59 Intake Total 120 / 120 940 / 940 50 / 50 Output Total 1400 / 1400 350 / 350 Balance 120 / 120 -460 / -460 -300 / -300 Laboratory Tests Past 24 Hrs 12/06/17 05:45 Hemoglobin A1c 6.7 H POC Glucose 12/06/17 12/06/17 12/06/17 20:57 17:24 12:38 POC Glucose 143 H 136 H 150 H Medical Necessity - Tobacco Use Smoking Status: Never smoker Assessment/Plan Active and Suspected Problems Acute CVA (cerebrovascular accident) (Acute) BPH (benign prostatic hyperplasia) (Acute)
[2017-12-07 07:11] LABS: Hematocrit 39.9 % (40-54); Mean Corp Hgb Conc 32.6 g/gl (32-36); Mean Corpuscular Hgb 31.8 pg (27.0-32.0); Mean Corpuscular Volume 97.6 fL (80-94); Mean Platelet Vol. 10.2 fl (6.2-12.0); Platelet Count 191 K/mm3 (150-450); RBC Distribution Width CV 13.7 % (11.6-14.6); RBC Distribution Width SD 48.6 fl (35.1-43.9); Red Blood Count 4.09 M/mm3 (4.6-6.2); White Blood Count 8.5 K/mm3 (4.4-11.0)
[2017-12-07 07:12] LABS: Scan Indicated on CBC? Y/N NO
[2017-12-07 07:18] LABS: Prothrombin Time (Protime)PT. 22.6 SECONDS (11.7-14.9)
[2017-12-07 07:22] LABS: Anion Gap 9 (5-15); BUN 14 mg/dL (7-18); BUN/Creat Ratio 18.1 RATIO (10-20); Calcium,Total 8.4 mg/dL (8.5-10.1); Chloride 108 mmol/L (98-107); Creatinine, Serum 0.78 mg/dL (0.70-1.30); EST Glomerular Filtration Rate 103 mL/min (>60); Est Glom Filt Rate - Afr Amer 124 mL/min (>60); Estimated Creatinine Clearance 64.84 ml/min; Glucose 119 mg/dL (74-106); Magnesium 1.9 mg/dL (1.6-2.6); Potassium 4.1 mmol/L (3.5-5.1); Sodium Level 144 mmol/L (136-145)
[2017-12-07] MEDS: Magnesium Oxide 400 MG Tablet PO (07:53)
[2017-12-07] MEDS: Aspirin 81 MG TAB.CHEW PO (07:53)
--- NOTE | 2017-12-07 09:22 | CASEMGMT ---
Addendum entered by Kamla Bo 12/07/17 09:58: SW spoke w/Nayely in rehab, they can take pt today. SW informed physician. SW tried to reach , SW got the voicemail. SW spoke w/pt, let him know inpt rehab has accepted pt and he can go today. Pt agreeable. SW explained has not been able to reach pt's , asked if okay to call his son, pt is fine with this. Pt states his will be in to visit today. SW called pt's son, Placido. SW let him know pt can go to inpt rehab today, explained was not able to reach pt's to let her know, wanted to let someone in family know. Son states he and pt's will be in about 12pm today to see pt. No further needs, pt to rehab today, green sheet will be placed on chart. CONCEPCION Olsen, FOREPART LASTER Original Note: As per physician, pt is ready for discharge, and would be a good candidate for inpt rehab, she spoke w/family and they are in agreement with this. SW called Nayely in rehab, she states will call Dr. Boss and let this SW know. SW will continue to follow. CONCEPCION Olsen, FOREPART LASTER
[2017-12-07] MEDS: Carvedilol 6.25 MG Tablet PO (09:26)
[2017-12-07] MEDS: Lisinopril 5 MG Tablet PO (09:26)
[2017-12-07] MEDS: Isosorbide Mononitrate 20 MG Tablet 10 MG PO (09:26)
[2017-12-07] MEDS: Allopurinol 300 MG Tablet PO (09:27)
--- NOTE | 2017-12-07 09:49 | EEG ---
- Electroencephalogram date of service 12/06/17 18 channel eeg is performed for possible seizure, history of cva 10-20 protocol is followed, hv, photic, and ecg leads were utilized the patient remained awake throughout with epileptiform or lateralizing changes. the eeg is mildley slow at 6hz symmetrically impression: abnormal eeg due to mild diffuse slowing. no epileptiform changes are noted
[2017-12-07 11:31] LABS: Bedside Glucose 149 mg/dL (70-110)
--- NOTE | 2017-12-07 11:49 | PCM.DC ---
- Discharge Diagnoses Current Active Problems: Current Active and Chronic Problems Acute CVA (cerebrovascular accident) (Acute) HTN (hypertension) (Chronic) Atrial fibrillation (Chronic) residential current use of anticoagulant (Chronic) DM2 (diabetes mellitus, type 2) (Chronic) Hyperlipidemia (Chronic) Gout (Chronic) BPH (benign prostatic hyperplasia) (Acute) You will use the following diet at home:: Calorie/Carbohydrate Controlled (specify 1200, 1400, etc) - 2000 calorie cardiac diet., Other - Assist with set up, seated upright at 90? while eating Your food should be the consistency of: Mechanical soft (ground) Your liquids should be the consistency of: Regular/Thin Additional Instructions: Accuchecks AC and HS. Start Metfomin in the AM. PT/INR in the AM. Pending Tests on Discharge: none Allergies/Adverse Reactions: Allergies Penicillins [PCN] Allergy (Verified 12/05/17 11:38) Other Medications to take at Discharge Allopurinol 300 mg PO DAILY 12/05/17 Carvedilol 6.25 mg PO BID 12/05/17 Isosorbide Mononitrate 10 mg PO BID 12/05/17 Lisinopril [Zestril] 5 mg PO DAILY 12/05/17 Paroxetine [Paxil] 40 mg PO QHS 12/05/17 Pravastatin [Pravachol] 20 mg PO QHS 12/05/17 Tamsulosin HCl [Flomax] 0.4 mg PO DINNER 12/05/17 Aspirin [Aspirin, Baby] 81 mg PO DAILY@0800 tab.chew 12/07/17 Bisacodyl [Dulcolax] 10 mg PO DAILY PRN PRN tablet 12/07/17 Docusate Sodium [Colace] 200 mg PO BID PRN PRN capsule 12/07/17 Famotidine [Pepcid] 20 mg PO BID PRN tablet 12/07/17 Glucagon 1 mg IM .X1 PRN syringe 12/07/17 Insulin Aspart [Novolog Flexpen] See Protocol SC ACHS flexpen 12/07/17 Mag Hydrox/Al Hydrox/Simeth [Mylanta II] 30 ml PO Q6H PRN PRN udc 12/07/17 Magnesium Oxide [Mag-Ox 400] 400 mg PO DAILYCM tablet 12/07/17 Metformin HCl 500 mg PO BID #1 04/07/18 Primary Care Physician: Marisela Jensen [Primary Care Provider] - Please follow up with your Primary Care Physician in: following DC from rehab Proposed Discharge Date: 12/07/17
--- NOTE | 2017-12-07 12:00 | DCINST_ITS ---
- Discharge Diagnoses Current Active Problems: Current Active and Chronic Problems Acute CVA (cerebrovascular accident) (Acute) HTN (hypertension) (Chronic) Atrial fibrillation (Chronic) correction current use of anticoagulant (Chronic) DM2 (diabetes mellitus, type 2) (Chronic) Hyperlipidemia (Chronic) Gout (Chronic) BPH (benign prostatic hyperplasia) (Acute) You will use the following diet at home:: Calorie/Carbohydrate Controlled ( specify 1200, 1400, etc) - 2000 calorie cardiac diet., Other - Assist with set up, seated upright at 90? while eating Your food should be the consistency of: Mechanical soft (ground) Your liquids should be the consistency of: Regular/Thin Additional Instructions: Accuchecks AC and HS. Start Metfomin in the AM. PT/ INR in the AM. Pending Tests on Discharge: none Allergies/Adverse Reactions: Allergies Penicillins [PCN] Allergy (Verified 12/05/17 11:38) Other Medications to take at Discharge Allopurinol 300 mg PO DAILY 12/05/17 Carvedilol 6.25 mg PO BID 12/05/17 Isosorbide Mononitrate 10 mg PO BID 12/05/17 Lisinopril [Zestril] 5 mg PO DAILY 12/05/17 Paroxetine [Paxil] 40 mg PO QHS 12/05/17 Pravastatin [Pravachol] 20 mg PO QHS 12/05/17 Tamsulosin HCl [Flomax] 0.4 mg PO DINNER 12/05/17 Aspirin [Aspirin, Baby] 81 mg PO DAILY@0800 tab.chew 12/07/17 Bisacodyl [Dulcolax] 10 mg PO DAILY PRN PRN tablet 12/07/17 Docusate Sodium [Colace] 200 mg PO BID PRN PRN capsule 12/07/17 Famotidine [Pepcid] 20 mg PO BID PRN tablet 12/07/17 Glucagon 1 mg IM .X1 PRN syringe 12/07/17 Insulin Aspart [Novolog Flexpen] See Protocol SC ACHS flexpen 12/07/17 Mag Hydrox/Al Hydrox/Simeth [Mylanta II] 30 ml PO Q6H PRN PRN udc 12/07/17 Magnesium Oxide [Mag-Ox 400] 400 mg PO DAILYCM tablet 12/07/17 Metformin HCl 500 mg PO BID #1 04/07/18 Primary Care Physician: Marisela Jensen [Primary Care Provider] - Please follow up with your Primary Care Physician in: following DC from rehab Proposed Discharge Date: 12/07/17
--- NOTE | 2017-12-07 12:10 | PCM.DC.SUM ---
Discharge Date and Diagnosis Date of Admission: 12/05/17 Date of Discharge: 12/07/17 - Primary Discharge Diagnosis Active and Suspected Problems Acute CVA (cerebrovascular accident) (Acute) Subtherapeutic international normalized ratio (INR) (Acute) Hypomagnesemia (Acute) - Secondary Discharge Diagnosis Chronic Problems Left atrial enlargement (Chronic) Cerebrovascular accident, old (Chronic) L MCA with encephalomalacia of predominantly the parietal lobe Hx of craniotomy (Chronic) to evacuate subdural hematoma Hx of subdural hematoma (Chronic) Noncompliance with CPAP treatment (Chronic) MELISSA (obstructive sleep apnea) (Chronic) HTN (hypertension) (Chronic) Atrial fibrillation/flutter (Chronic) detention current use of anticoagulant (Chronic) DM2 (diabetes mellitus, type 2) (Chronic) Hyperlipidemia (Chronic) Gout (Chronic) BPH (benign prostatic hyperplasia) (Chronic) Hospital Course and Treatment Imaging Results: Clinical Impression(s) from Imaging Studies Brain CT 12/05/17 11:55 IMPRESSION: Chronic involutional changes of the brain. Old encephalomalacia in the posterior aspect of the left parietal lobe. N.B. : The above information has been verbally conveyed by Kirit Baez MD to Mir Ortiz, Referring Physician, on 12/05/2017 12:16:38 (ET). Electronically Signed: Kirit Baez MD at 12:16 EDT Tel [phone], Service support , N.B. : The above information has been verbally conveyed by Kirit Baez MD to Mir Ortiz, Referring Physician, on 12/05/2017 12:16:38 (ET). Chest X-Ray 12/05/17 11:55 IMPRESSION: No acute abnormality is seen. Electronically Signed: Kirit Baez MD at 12:24 EDT Tel [phone], Service support , Head CTA 12/05/17 13:22 IMPRESSION: High-grade stenosis at the origins of both right and left internal carotid arteries. Electronically Signed: Kirit Baez MD at 15:00 EDT Tel [phone], Service support , Brain MRI 12/05/17 16:23 IMPRESSION: 1. Left parietal encephalomalacia with no evidence of surrounding acute ischemia or intraparenchymal bleed. Senescent changes as above. Electronically Signed: Eric Rodarte, DO at 20:34 EDT , Service support , Laboratory Results - last 24 hr 12/06/17 12/06/17 12/06/17 12:38 17:24 20:57 WBC RBC Hgb Hct MCV MCH MCHC RDW RDW Differential Plt Count MPV PT INR Sodium Potassium Chloride Carbon Dioxide Anion Gap BUN Creatinine Estim Creat Clear Calc Est GFR (MDRD) Af Amer Est GFR (MDRD) Non-Af BUN/Creatinine Ratio Glucose Calcium Magnesium POC Glucose 150 H 136 H 143 H 12/07/17 12/07/17 12/07/17 06:40 06:40 06:40 WBC 8.5 RBC 4.09 L Hgb 13.0 Hct 39.9 L MCV 97.6 H MCH 31.8 MCHC 32.6 RDW 13.7 RDW Differential 48.6 H Plt Count 191 MPV 10.2 PT 22.6 H INR 2.0 Sodium 144 Potassium 4.1 Chloride 108 H Carbon Dioxide 27.0 Anion Gap 9 BUN 14 Creatinine 0.78 Estim Creat Clear Calc 64.84 Est GFR (MDRD) Af Amer 124 Est GFR (MDRD) Non-Af 103 BUN/Creatinine Ratio 18.1 Glucose 119 H Calcium 8.4 L Magnesium 1.9 POC Glucose 12/07/17 11:23 WBC RBC Hgb Hct MCV MCH MCHC RDW RDW Differential Plt Count MPV PT INR Sodium Potassium Chloride Carbon Dioxide Anion Gap BUN Creatinine Estim Creat Clear Calc Est GFR (MDRD) Af Amer Est GFR (MDRD) Non-Af BUN/Creatinine Ratio Glucose Calcium Magnesium POC Glucose [address] Mynor Boss-neurology Operations: None Procedures: 2-D Echocardiogram - Ejection fraction 55% with no wall motion abnormalities. Moderately enlarged left atrium, mild to moderate TR., Electroencephalogram - Neurologic slowing with no epileptiform activity Summary of Care Provided: Patient is a 76-year-old male with a past medical history of hypertension, chronic atrial fibrillation, chronic anticoagulation, diabetes mellitus type 2, hyperlipidemia, MELISSA (non-compliant with CPAP recently) gout, frontal craniotomy for subdural hematoma, history of CVAs of the basal ganglion and left MCA distribution and BPH who presented to the [facility] emergency room on 12/05/2017 with complaints of right-sided weakness and difficulty speaking. He has mild R side weakness due to prior MCA infarct however he had been walking without an AD at home and uses only a can when leaving the house. The slurred speech was much more pronounced making him difficult to understand. CT brain in the emergency room revealed old encephalomalacia in the left temporal region, old basal ganglia infarct and no acute findings. EKG showed atrial flutter at 60 bpm with a right bundle branch block. Chest x-ray showed no infiltrates, pleural effusions or pulmonary vascular congestion. CTA of the head and neck showed no evidence of intracranial or extracranial significant stenoses or aneurysm. INR was subtherapeutic at 1.7. He was admitted to PCU with a dx of suspected acute L MCA distribution CVA. MRI on 12/05 showed no acute findings but it was done soon after the initial event and it may have been too early. Dr. Boss was consulted. Echocardiogram showed a normal left ventricular ejection fraction of 55% with no wall motion abnormalities and no evidence of left ventricular hypertrophy. No clot was reported. The left atrium was moderately enlarged. There was mild to moderate TR. HDL was 30 and the LDL was 36 with triglycerides of 178. TSH was normal. EEG showed generalized slowing but no epileptiform activity and he was no on AED's at the time of the EEG. PT/OT/ST worked with the patient in the hospital. He was unsteady standing and required max assist to ambulate. PT felt he would benefit from stay in rehab prior to returning home. He was discharged to the rehab unit on 12/07/17. He will follow up with Dr. Jensen following DC from rehab. He will be transitioned to Eliquis when the INR decreases to <2.0 for consistent therapeutic activity. This note was generated with [employer] software. It may contain incorrect words, spelling, and punctuation that were not noted in checking the note before signing. Home Medications: Medications to take at Discharge Allopurinol 300 mg PO DAILY 12/05/17 Carvedilol 6.25 mg PO BID 12/05/17 Isosorbide Mononitrate 10 mg PO BID 12/05/17 Lisinopril [Zestril] 5 mg PO DAILY 12/05/17 Paroxetine [Paxil] 40 mg PO QHS 12/05/17 Pravastatin [Pravachol] 20 mg PO QHS 12/05/17 Tamsulosin HCl [Flomax] 0.4 mg PO DINNER 12/05/17 Aspirin [Aspirin, Baby] 81 mg PO DAILY@0800 12/07/17 Famotidine [Pepcid] 20 mg PO BID PRN tablet 12/07/17 Mag Hydrox/Al Hydrox/Simeth [Mylanta II] 30 ml PO Q6H PRN PRN udc 12/07/17 Magnesium Oxide [Mag-Ox 400] 400 mg PO DAILYCM 12/07/17 Metformin HCl 500 mg PO BID #1 12/07/17 Primary Care Physician: Marisela Jensen [Primary Care Provider] - Please follow up with your Primary Care Physician in: following DC from rehab Disposition: Inpt Rehab Unit/Facility Minutes spent on discharge:: 35 Patient Condition:: Stable Medical Necessity - Tobacco Use Smoking Status: Never smoker Meaningful Use Info Meaningful Use Diagnoses (Choose all that apply): Ischemic CVA - CVA Therapy Assessed for PT,OT and/or ST?: Yes - Ischemic Stroke Antithrombotic order at d/c?: Yes Dx of Atrial fib/flutter?: Yes Anticoagulant at discharge?: Yes Statins at discharge?: Yes Primary Dx Acute Ischemic CVA?: Yes IV tPA ordered during stay?: No Reason IV t-PA not ordered: Treatment not Indicated Code Visit Inpatient E&M: 94150 Disch Hosp
--- NOTE | 2017-12-07 12:15 | DS.PCM_ITS ---
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 Old encephalomalacia in the posterior aspect of the left parietal lobe. N.B. : The above information has been verbally conveyed by Kirit Baez MD to Mir Ortiz, Referring Physician, on 12/05/2017 12:16:38 (ET). Electronically Signed: Kirit Baez MD at 12:16 EDT Tel [phone], Service support , N.B. : The above information has been verbally conveyed by Kirit Baez MD to Mir Ortiz, Referring Physician, on 12/05/2017 12:16:38 (ET). Chest X-Ray 12/05/17 11:55 IMPRESSION: No acute abnormality is seen. Electronically Signed: Kirit Baez MD at 12:24 EDT Tel [phone], Service support , Head CTA 12/05/17 13:22 IMPRESSION: High-grade stenosis at the origins of both right and left internal carotid arteries. Electronically Signed: Kirit Baez MD at 15:00 EDT Tel [phone], Service support , Brain MRI 12/05/17 16:23 IMPRESSION: 1. Left parietal encephalomalacia with no evidence of surrounding acute ischemia or intraparenchymal bleed. Senescent changes as above. Electronically Signed: Eric Rodarte, DO at 20:34 EDT , Service support , Laboratory Results - last 24 hr 12/06/17 12/06/17 12/06/17 12:38 17:24 20:57 WBC RBC Hgb Hct MCV MCH MCHC RDW RDW Differential Plt Count MPV PT INR Sodium Potassium Chloride Carbon Dioxide Anion Gap BUN Creatinine Estim Creat Clear Calc Est GFR (MDRD) Af Amer Est GFR (MDRD) Non-Af BUN/Creatinine Ratio Glucose Calcium Magnesium POC Glucose 150 H 136 H 143 H 12/07/17 12/07/17 12/07/17 06:40 06:40 06:40 WBC 8.5 RBC 4.09 L Hgb 13.0 Hct 39.9 L MCV 97.6 H MCH 31.8 MCHC 32.6 RDW 13.7 RDW Differential 48.6 H Plt Count 191 MPV 10.2 PT 22.6 H INR 2.0 Sodium 144 Potassium 4.1 Chloride 108 H Carbon Dioxide 27.0 Anion Gap 9 BUN 14 Creatinine 0.78 Estim Creat Clear Calc 64.84 Est GFR (MDRD) Af Amer 124 Est GFR (MDRD) Non-Af 103 BUN/Creatinine Ratio 18.1 Glucose 119 H Calcium 8.4 L Magnesium 1.9 POC Glucose 12/07/17 11:23 WBC RBC Hgb Hct MCV MCH MCHC RDW RDW Differential Plt Count MPV PT INR Sodium Potassium Chloride Carbon Dioxide Anion Gap BUN Creatinine Estim Creat Clear Calc Est GFR (MDRD) Af Amer Est GFR (MDRD) Non-Af BUN/Creatinine Ratio Glucose Calcium Magnesium POC Glucose [address] Mynor Boss-neurology Operations: None Procedures: 2-D Echocardiogram - Ejection fraction 55% with no wall motion abnormalities. Moderately enlarged left atrium, mild to moderate TR., Electroencephalogram - Neurologic slowing with no epileptiform activity Summary of Care Provided: Patient is a 76-year-old male with a past medical history of hypertension, chronic atrial fibrillation, chronic anticoagulation, diabetes mellitus type 2, hyperlipidemia, MELISSA (non-compliant with CPAP recently) gout, frontal craniotomy for subdural hematoma, history of CVAs of the basal ganglion and left MCA distribution and BPH who presented to the [facility] emergency room on 12/05/2017 with complaints of right-sided weakness and difficulty speaking. He has mild R side weakness due to prior MCA infarct however he had been walking without an AD at home and uses only a can when leaving the house. The slurred speech was much more pronounced making him difficult to understand. CT brain in the emergency room revealed old encephalomalacia in the left temporal region, old basal ganglia infarct and no acute findings. EKG showed atrial flutter at 60 bpm with a right bundle branch block. Chest x-ray showed no infiltrates, pleural effusions or pulmonary vascular congestion. CTA of the head and neck showed no evidence of intracranial or extracranial significant stenoses or aneurysm. INR was subtherapeutic at 1.7. He was admitted to PCU with a dx of suspected acute L MCA distribution CVA. MRI on 12/05 showed no acute findings but it was done soon after the initial event and it may have been too early. Dr. Boss was consulted. Echocardiogram showed a normal left ventricular ejection fraction of 55% with no wall motion abnormalities and no evidence of left ventricular hypertrophy. No clot was reported. The left atrium was moderately enlarged. There was mild to moderate TR. HDL was 30 and the LDL was 36 with triglycerides of 178. TSH was normal. EEG showed generalized slowing but no epileptiform activity and he was no on AED's at the time of the EEG. PT/OT/ST worked with the patient in the hospital. He was unsteady standing and required max assist to ambulate. PT felt he would benefit from stay in rehab prior to returning home. He was discharged to the rehab unit on 12/07/17. He will follow up with Dr. Jensen following DC from rehab. He will be transitioned to Eliquis when the INR decreases to <2.0 for consistent therapeutic activity. This note was generated with [employer] software. It may contain incorrect words, spelling, and punctuation that were not noted in checking the note before signing. Home Medications: Medications to take at Discharge Allopurinol 300 mg PO DAILY 12/05/17 Carvedilol 6.25 mg PO BID 12/05/17 Isosorbide Mononitrate 10 mg PO BID 12/05/17 Lisinopril [Zestril] 5 mg PO DAILY 12/05/17 Paroxetine [Paxil] 40 mg PO QHS 12/05/17 Pravastatin [Pravachol] 20 mg PO QHS 12/05/17 Tamsulosin HCl [Flomax] 0.4 mg PO DINNER 12/05/17 Aspirin [Aspirin, Baby] 81 mg PO DAILY@0800 12/07/17 Famotidine [Pepcid] 20 mg PO BID PRN tablet 12/07/17 Mag Hydrox/Al Hydrox/Simeth [Mylanta II] 30 ml PO Q6H PRN PRN udc 12/07/17 Magnesium Oxide [Mag-Ox 400] 400 mg PO DAILYCM 12/07/17 Metformin HCl 500 mg PO BID #1 12/07/17 Primary Care Physician: Marisela Jensen [Primary Care Provider] - Please follow up with your Primary Care Physician in: following DC from rehab Disposition: Inpt Rehab Unit/Facility Minutes spent on discharge:: 35 Patient Condition:: Stable Medical Necessity - Tobacco Use Smoking Status: Never smoker Meaningful Use Info Meaningful Use Diagnoses (Choose all that apply): Ischemic CVA - CVA Therapy Assessed for PT,OT and/or ST?: Yes - Ischemic Stroke Antithrombotic order at d/c?: Yes Dx of Atrial fib/flutter?: Yes Anticoagulant at discharge?: Yes Statins at discharge?: Yes Primary Dx Acute Ischemic CVA?: Yes IV tPA ordered during stay?: No Reason IV t-PA not ordered: Treatment not Indicated Code Visit Inpatient E&M: 33510 Disch Hosp
--- NOTE | 2017-12-07 14:02 | HP.PCM_ITS ---
History of Present Illness Date of Admission: 12/07/17 Chief Complaint: debility The patient is a 76 year old right handed male with history of left mca infarct , lives at home independent with . reports since he has had increaseing difficulty starting with difficulty getting out of bed and increased right sided weakness which has slowly improved. also reports his language is worse since . on coumadin for afib, inr subtherapeutic upon presentation, pt reports good compliance with meds. reports sdh/crani ,(on coumadin) treated in [place], cva about '16. workup in the hospital was negative for acute stroke by mri, and eeg did not show epileptiform changes. no other cause of his debility was immediately clear. he has ongoing debility due to his chronic stroke as well as his acute decompensation and is therefore admitted to the rehab unit for therapy in order with restore his previous level of functional independence. 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) DM2 (diabetes mellitus, type 2) (Chronic) Hyperlipidemia (Chronic) Gout (Chronic) BPH (benign prostatic hyperplasia) (Chronic) Allergies Penicillins [PCN] Allergy (Verified 12/05/17 11:38) Other Home Medications: Ambulatory Orders Medication Instructions Recorded Allopurinol 300 mg PO DAILY 12/05/17 Carvedilol 6.25 mg PO BID 12/05/17 Isosorbide Mononitrate 10 mg PO BID 12/05/17 Lisinopril [Zestril] 5 mg PO DAILY 12/05/17 Paroxetine [Paxil] 40 mg PO QHS 12/05/17 Pravastatin [Pravachol] 20 mg PO QHS 12/05/17 Tamsulosin HCl [Flomax] 0.4 mg PO DINNER 12/05/17 Aspirin [Aspirin, Baby] 81 mg PO DAILY@0800 tab.chew 12/07/17 Bisacodyl [Dulcolax] 10 mg PO DAILY PRN PRN tablet 12/07/17 Docusate Sodium [Colace] 200 mg PO BID PRN PRN capsule 12/07/17 Famotidine [Pepcid] 20 mg PO BID PRN tablet 12/07/17 Glucagon 1 mg IM .X1 PRN syringe 12/07/17 Insulin Aspart [Novolog Flexpen] See Protocol SC ACHS flexpen 12/07/17 Mag Hydrox/Al Hydrox/Simeth 30 ml PO Q6H PRN PRN udc 12/07/17 [Mylanta II] Magnesium Oxide [Mag-Ox 400] 400 mg PO DAILYCM tablet 12/07/17 Metformin HCl 500 mg PO BID #1 12/07/17 Surgical History: no surgical history Lives: Spouse/ Significant Other Smoking Status: Never smoker Alcohol: None Review of Systems Constitutional: Denies: Chills, Fever, Weight Change HEENT: Denies: Head Aches, Sinus Congestion, Sinus Drainage Cardiovascular: Denies: Chest Pain, Palpitations Respiratory: Denies: Cough, Shortness of breath at rest, Sputum production Gastrointestinal: Denies: Abdominal Pain, Nausea, Vomiting Genitourinary: Denies: Dysuria Musculoskeletal: Denies: Joint Pain, Joint Tenderness Skin: Denies: Rash, Wounds Neurological: Denies: Numbness, Tingling, Focal weakness Psychiatric: Denies: Anxiety, Depression, Homicidal Ideations, Suicidal Ideations Hematologic/ Lymphatic: Denies: Easy Bruising, Easy Bleeding VTE Information - Inpt Only VTE Present on Admission: Yes VTE Pharm Prophylaxis ordered?: Yes Patient Problems: Active and Suspected Problems Hypomagnesemia (Acute) Subtherapeutic international normalized ratio (INR) (Acute) Acute CVA (cerebrovascular accident) (Acute) - Physical Exam General: Alert, Oriented x3, Cooperative HEENT: Atraumatic, PERRLA, EOMI, Normocephalic Neck: Supple, No JVD, Negative Carotid Bruits Lungs: Clear to auscultation, Normal air movement Cardiovascular: Regular rate, No murmurs Abdomen: Bowel Sounds Present, Soft, Non Tender Extremities: No edema, Capillary Refill Less than 3 Seconds Skin: No rashes, No breakdown Musculoskeletal: No Tenderness to Palpation of Joints or Extremities Neurological: Cranial nerves II-XII grossly intact, - - mild right hemiparesis and dysarthria Psych/Mental Status: Normal Affect, Appropriate Vital Signs Temp Pulse Resp BP Pulse Ox 36.7 C 74 20 H 99/74 94 12/07/17 11:59 12/07/17 11:59 12/07/17 11:59 12/07/17 11:59 12/07/17 11:59 Oxygen Delivery Method Room Air Weight: 97.2 kg Body Mass Index (BMI) 29.9 Intake and Output for Last 24 Hours 12/05/17 12/06/17 12/07/17 23:59 23:59 23:59 Intake Total 120 / 120 940 / 940 410 / 410 Output Total 1400 / 1400 350 / 350 Balance 120 / 120 -460 / -460 60 / 60 Laboratory Tests Past 24 Hrs 12/07/17 12/07/17 12/07/17 06:40 06:40 06:40 WBC 8.5 RBC 4.09 L Hgb 13.0 Hct 39.9 L MCV 97.6 H MCH 31.8 MCHC 32.6 RDW 13.7 RDW Differential 48.6 H Plt Count 191 MPV 10.2 PT 22.6 H INR 2.0 Sodium 144 Potassium 4.1 Chloride 108 H Carbon Dioxide 27.0 Anion Gap 9 BUN 14 Creatinine 0.78 Estim Creat Clear Calc 64.84 Est GFR (MDRD) Af Amer 124 Est GFR (MDRD) Non-Af 103 BUN/Creatinine Ratio 18.1 Glucose 119 H Calcium 8.4 L Magnesium 1.9 POC Glucose 12/07/17 12/06/17 12/06/17 11:23 20:57 17:24 POC Glucose 149 H 143 H 136 H Assessment/Plan Active and Suspected Problems Hypomagnesemia (Acute) Subtherapeutic international normalized ratio (INR) (Acute) Acute CVA (cerebrovascular accident) (Acute) debility due to chronic left mca infarct with acute decompensation, admitted to rehab unit with goal of restoring prior level of functional independence pt for gait and balance ot for adls prn analgesics afib: coumadin for now, ?eliquis bowel protocol speech therapy dvt prophylaxis: coumadin, follow inr
--- NOTE | 2017-12-07 14:02 | PCM.RU.PYE ---
Admission Information Status Changes from Prescreening?: No changes Identified Actual Problem List:: Cognitve Impr/Memory Loss, Mobility Impaired, Self Care Deficit, Ineffect.D/C Plan r/t Psy Potential Problem List:: DVT, Bleeding, Infection, UTI, Aspiration, Falls, Skin Integrity, Depression Risk of Complications DVT: LMWH, EM Hose, Sequential Compression Device Bleeding: Monitor Lab Values, Nursing to Teach Precautions for anti-coagulation therapy., Wound, if applicable, to be assessed every shift., Stroke patients assessed for lethargy or change in status. Infection: Clinical Staff to Monitor for S/S of infection:, S/S of infection include fever, redness, warmth, etc. Urinary Tract Infection: Monitor for frequency, burning, discomfort, or incontinence., Nursing will obtain urine sample for urinalysis and C&S when ordered. Aspiration: Clinical staff will monitor for coughing, drooling, congestion., Speech will evaluate swallowing and dsyphasia., Nursing will monitor patient swallowing during meals. Falls: Patient will be evaluated for Fall Precautions, Patient will be placed on Fall Precautions as indicated per protocol. Skin Breakdown: Nursing will assess skin daily using assessment tool., Nursing will place on Skin Breakdown Precautions as indicated. Pain: Clinical staff will assess patient's pain level per protocol., Medications will be given, if needed, and the pain level reassessed., Other methods: Massage, distraction, decrease stimulus, etc. used PRN. Plan of Care Patient requires physician specializing in physical medicine and rehab oversight to provide close medical supervision of rehab issues including: Pain Management, Sleep Problems, Bowel and Bladder, Medical and co-morbidity Management, DVT prophylaxis, Rehabilitation Leadership, Coordination of treatment team Patient needs Physical Therapy: For a minimum of 1 hour, At least 5 out of 7 days Patient needs Physical Therapy to improve:: Mobility, Mobility, Mobility, Strengthening, Transfers, Stretching, ROM, Endurance, Stairs, Gait, Balance Patient needs Occupational Therapy: For a minimum of 1 hour, At least 5 out of 7 days Patient needs Occupational Therapy to improve ADL's incl.: Eating, Grooming, Bathing, Dressing, Toileting, Toilet transfers, Community Reintegration, Higher functioning activities, Household tasks, Adaptive Equipment, Splinting, Other activities as determined Patient requires speech therapy: For a minimum of 1 hour, At least 5 out of 7 days Patient requires speech therapy for: Swallowing, Cognition, Language Skills, Compensatory Strategies Patient requires 24/ Rehabilitation Nursing for: Pain Issues, Identifying and preventing risk factors, Monitoring and reporting current medical conditions, Assisting with ambulation, transfer, and all ADL's, Teaching patients about disease process and medications, Family teaching, Providing safe environment, Bowel and Bladder Issues, Skin integrity, Medication Management Patient needs Oncology Physician/ Case Management for: Discharge Planning, Arranging Home Equipment or Services, Family Interventions Patient needs Dietary and Nutrition Services for: Adequate Nutrition, Nutritional Supplements, Nutritional Education Goals Patient will remain: free from falls, or injury at time of discharge. Patient will perform bed mobility at: MOD I level of assist. Patient will complete transfers from bed to chair at: MOD I level of assist. Patient will ambulate: 100 feet, with MOD I assist, with LRD Patient will complete upper body dressing at: MOD I level of assist. Patient will complete lower body dressing at: MOD I level of assist. Patient will complete toileting at: MOD I level of assist. Patient will perform bathing at: MOD I level of assist. Patient will complete grooming at: MOD I level of assist. Patient will complete home management skills at: MOD I level of assist. Patient will achieve: 12 stairs, at MOD I assist Patient will have pain level of: of 3 or less Patient's skin will: remain intact, free from infection. Patient will receive: adequate nutrition. Discharge Planning Pt Prognosis for Sig. Practical Improv. w/in Reasonable Time: Good Anticipated D/C Destination: Home with Outpt Therapy Was Preadmission Assessment Accurate?: Yes
== END 2017-12-07 14:25 | DRG 65 ==
LOC: ED 15:02 → PCU 15:36
PROVIDERS: Admitting Provider Internal Medicine; Emergency Provider Emergency Medicine; Family Provider Internal Medicine Infectious Disease; PCP Internal Medicine Infectious Disease; Visit Provider Internal Medicine
DX: I63.512 Cerebral infarction due to unspecified occlusion or stenosis of left middle cerebral artery (principal); I48.92 Unspecified atrial flutter; G81.91 Hemiplegia, unspecified affecting right dominant side; R29.810 Facial weakness; R47.1 Dysarthria and anarthria; E11.9 Type 2 diabetes mellitus without complications; E78.5 Hyperlipidemia, unspecified; G47.33 Obstructive sleep apnea (adult) (pediatric); I48.2 Chronic atrial fibrillation; N40.0 Benign prostatic hyperplasia without lower urinary tract symptoms; Z91.19 Patient's noncompliance with other medical treatment and regimen; Z79.01 Long term (current) use of anticoagulants; I10 Essential (primary) hypertension; M10.9 Gout, unspecified; R29.706 NIHSS score 6
CPT/HCPCS: 36415; 70450; 70496; 70498; 70551; 71045; 80048; 80061; 82962; 83036; 83735; 84443; 84484; 85025; 85027; 85610; 85730; 92523; 92526; 93005; 93306; 95819; 97110; 97163; 97166; 97530; 99285; Q9957; Q9967; A4216

== ENCOUNTER 2017-12-07 14:40 | Inpatient (IN) | payer MEDICARE, BC, SELFPAY ==
[2017-12-07 14:45] VITALS: BP 127/69; PULSE 58; RESP 18; TEMP 36.6; O2SAT 94; BMI 29.7
[2017-12-07 16:50] VITALS: O2SAT 97
[2017-12-07 17:06] LABS: Bedside Glucose 96 mg/dL (70-110)
[2017-12-07] MEDS: Tamsulosin HCl 0.4 MG Capsule PO (17:09)
[2017-12-07 19:24] LABS: International Normalized Ratio 2.1; Prothrombin Time (Protime)PT. 23.8 SECONDS (11.7-14.9)
[2017-12-07 22:00] VITALS: BP 141/69; PULSE 68; RESP 17; TEMP 36.5; O2SAT 97
[2017-12-07] MEDS: Carvedilol 6.25 MG Tablet PO (22:37)
[2017-12-07] MEDS: Pravastatin 20 MG Tablet PO (22:37)
[2017-12-07] MEDS: Isosorbide Mononitrate 20 MG Tablet 10 MG PO (22:37)
[2017-12-07] MEDS: Senna/Docusate Sodium 1 Tablet 2 TABLET PO (22:38)
[2017-12-07] MEDS: PARoxetine 10 MG Tablet 40 MG PO (22:38)
[2017-12-08 00:11] LABS: Bedside Glucose 129 mg/dL (70-110)
[2017-12-08 06:56] LABS: Bedside Glucose 117 mg/dL (70-110)
[2017-12-08 07:34] LABS: Hematocrit 39.4 % (40-54); Hemoglobin 13.1 g/dl (13.0-16.5); Mean Corp Hgb Conc 33.2 g/gl (32-36); Mean Corpuscular Hgb 32.4 pg (27.0-32.0); Mean Corpuscular Volume 97.5 fL (80-94); Mean Platelet Vol. 10.2 fl (6.2-12.0); Platelet Count 180 K/mm3 (150-450); RBC Distribution Width CV 13.2 % (11.6-14.6); RBC Distribution Width SD 45.7 fl (35.1-43.9); Red Blood Count 4.04 M/mm3 (4.6-6.2); White Blood Count 8.7 K/mm3 (4.4-11.0)
[2017-12-08 07:35] VITALS: BP 154/79; PULSE 75; RESP 18; TEMP 36.6; O2SAT 96
[2017-12-08 07:36] LABS: Scan Indicated on CBC? Y/N NO
[2017-12-08 07:38] LABS: International Normalized Ratio 2.1; Prothrombin Time (Protime)PT. 23.3 SECONDS (11.7-14.9)
[2017-12-08 08:08] LABS: Anion Gap 9 (5-15); BUN 17 mg/dL (7-18); BUN/Creat Ratio 19.1 RATIO (10-20); Calcium,Total 8.5 mg/dL (8.5-10.1); Chloride 111 mmol/L (98-107); Creatinine, Serum 0.89 mg/dL (0.70-1.30); EST Glomerular Filtration Rate 88 mL/min (>60); Est Glom Filt Rate - Afr Amer 106 mL/min (>60); Estimated Creatinine Clearance 72.86 ml/min; Glucose 121 mg/dL (74-106); Potassium 4.3 mmol/L (3.5-5.1); Sodium Level 146 mmol/L (136-145)
[2017-12-08] MEDS: Magnesium Oxide 400 MG Tablet PO (08:38)
[2017-12-08] MEDS: Senna/Docusate Sodium 1 Tablet 2 TABLET PO ×2 (08:38→21:41)
[2017-12-08] MEDS: PARoxetine 10 MG Tablet 40 MG PO (08:38)
[2017-12-08] MEDS: Isosorbide Mononitrate 20 MG Tablet 10 MG PO ×2 (08:38→21:41)
[2017-12-08] MEDS: Carvedilol 6.25 MG Tablet PO ×2 (08:38→21:40)
[2017-12-08] MEDS: Lisinopril 5 MG Tablet PO (08:39)
[2017-12-08] MEDS: Allopurinol 300 MG Tablet PO (08:39)
[2017-12-08] MEDS: Aspirin 81 MG TAB.CHEW PO (08:39)
[2017-12-08] MEDS: Magnesium Hydroxide 30 ML UDC PO (08:40)
[2017-12-08 11:09] VITALS: BMI 29.7
[2017-12-08 11:50] LABS: Bedside Glucose 168 mg/dL (70-110)
[2017-12-08 15:28] VITALS: O2SAT 92
--- NOTE | 2017-12-08 15:43 | NURSING ---
per dr garza d/c coumadin. monitor INR once INR <2 start Eliquis 5 mg BID and discontinue asa and daily INR.
[2017-12-08 16:41] LABS: Bedside Glucose 104 mg/dL (70-110)
[2017-12-08] MEDS: Tamsulosin HCl 0.4 MG Capsule PO (17:21)
[2017-12-08 21:30] VITALS: BP 133/71; PULSE 68; RESP 18; TEMP 36.4; O2SAT 98; BMI 29.7
[2017-12-08] MEDS: Pravastatin 20 MG Tablet PO (21:41)
[2017-12-08 22:01] LABS: Bedside Glucose 133 mg/dL (70-110)
--- NOTE | 2017-12-09 02:32 | NURSING ---
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
[2017-12-09 06:30] LABS: International Normalized Ratio 2.2; Prothrombin Time (Protime)PT. 24.3 SECONDS (11.7-14.9)
[2017-12-09 07:01] LABS: Bedside Glucose 127 mg/dL (70-110)
[2017-12-09 07:26] VITALS: BP 142/68; PULSE 74; RESP 18; TEMP 36.4; O2SAT 97
[2017-12-09] MEDS: Carvedilol 6.25 MG Tablet PO ×2 (08:09→22:13)
[2017-12-09] MEDS: Allopurinol 300 MG Tablet PO (08:09)
[2017-12-09] MEDS: Magnesium Oxide 400 MG Tablet PO (08:09)
[2017-12-09] MEDS: Senna/Docusate Sodium 1 Tablet 2 TABLET PO ×2 (08:09→22:12)
[2017-12-09] MEDS: Aspirin 81 MG TAB.CHEW PO (08:09)
[2017-12-09] MEDS: Isosorbide Mononitrate 20 MG Tablet 10 MG PO ×2 (08:09→22:13)
[2017-12-09] MEDS: Lisinopril 5 MG Tablet PO (08:10)
--- NOTE | 2017-12-09 10:52 | PCM.PN.NEU ---
Subjective: Patient seen during therapy session. Tolerating therapy. Patient is complaining of restless legs, is unable to sleep because of it, will start Requip .25mg. Continue to get daily INR until INR is less than 2 than will start Eliquis 5mg BID. Was complaining of dizziness on standing will obtain Orthostatic blood pressures. - Physical Exam General: Alert, Oriented x3, Cooperative HEENT: Atraumatic, PERRLA, EOMI, Normocephalic Neck: Supple, No JVD, Negative Carotid Bruits Lungs: Clear to auscultation, Normal air movement Cardiovascular: Regular rate, No murmurs Abdomen: Bowel Sounds Present, Soft, Non Tender Extremities: No edema, Capillary Refill Less than 3 Seconds Skin: No rashes, No breakdown Musculoskeletal: No Tenderness to Palpation of Joints or Extremities Neurological: Cranial nerves II-XII grossly intact Psych/Mental Status: Normal Affect, Appropriate Vital Signs Temp Pulse Resp BP Pulse Ox 97.5 F L 74 18 142/68 H 97 12/09/17 07:26 12/09/17 07:26 12/09/17 07:26 12/09/17 07:26 12/09/17 07:26 Oxygen Delivery Method Room Air Weight: 96.5 kg Body Mass Index (BMI) 29.7 Finger Stick Blood Glucose 87 Intake and Output for Last 24 Hours 12/07/17 12/08/17 12/09/17 23:59 23:59 23:59 Intake Total 240 / 240 240 / 240 260 / 260 Output Total 350 / 350 Balance 240 / 240 -110 / -110 260 / 260 Laboratory Tests Past 24 Hrs 12/09/17 05:30 PT 24.3 H INR 2.2 POC Glucose 12/09/17 12/08/17 12/08/17 06:55 21:38 16:36 POC Glucose 127 H 133 H 104 12/08/17 11:43 POC Glucose 168 H Active Medications Acetaminophen (Tylenol) 650 mg PO Q6H PRN PRN PRN Reason: Mild Pain (0-3/10)/Headache Al Hydroxide/Mg Hydroxide (Mylanta Ii) 30 ml PO Q6H PRN PRN PRN Reason: Gastric Burning Allopurinol (Zyloprim) 300 mg PO DAILY [facility] Last Admin: 12/09/17 08:09 Dose: 300 mg Aspirin (Aspirin, Baby) 81 mg PO DAILY@0800 [facility] Last Admin: 12/09/17 08:09 Dose: 81 mg Bisacodyl (Dulcolax) 10 mg RECTAL .PRN X 1 PRN PRN Reason: Constipation Carvedilol (Coreg) 6.25 mg PO BID [facility] Last Admin: 12/09/17 08:09 Dose: 6.25 mg Dextrose (D50w Syringe) 0 gm IV X1 PRN; Protocol PRN Reason: Hypoglycemia Famotidine (Pepcid) 20 mg PO BID PRN PRN Reason: DYSPEPSIA Glucagon () 1 mg IM .X1 PRN PRN Reason: Hypoglycemia Insulin Aspart (Novolog Flexpen (Bkc)) 0 units SC [facility] PRN Reason: Protocol Last Admin: 12/09/17 11:32 Dose: Not Given Isosorbide Mononitrate (Monoket) 10 mg PO BID [facility] Last Admin: 12/09/17 08:09 Dose: 10 mg Lisinopril (Zestril) 5 mg PO DAILY [facility] Last Admin: 12/09/17 08:10 Dose: 5 mg Magnesium Hydroxide (Milk Of Magnesia) 30 ml PO .PRN X 1 PRN PRN Reason: Constipation Last Admin: 12/08/17 08:40 Dose: 30 ml Magnesium Oxide (Mag-Ox 400) [facility] Admin: 12/09/17 08:09 Dose: 400 mg Metformin HCl (Glucophage) [facility] Last Admin: 12/09/17 08:09 Dose: 500 mg Paroxetine HCl (Paxil) [facility] Last Admin: 12/08/17 08:38 Dose: 40 mg Pramipexole Dihydrochloride (Mirapex) 0.125 mg PO [facility] Pravastatin Sodium (Pravachol) [facility] Last Admin: 12/08/17 21:41 Dose: 20 mg Senna/Docusate Sodium (Senokot-S, Amelie-Colace) 2 tablet PO BID [facility] Last Admin: 12/09/17 08:09 Dose: 2 tablet Tamsulosin HCl (Flomax) 0.4 mg PO DINNER [facility] Last Admin: 12/08/17 17:21 Dose: 0.4 mg Medical Necessity - Tobacco Use Smoking Status: Never smoker Assessment/Plan debility due to chronic left mca infarct with acute decompensation, admitted to rehab unit with goal of restoring prior level of functional independence pt for gait and balance ot for adls prn analgesics afib: Coumadin for now, ?eliquis bowel protocol speech therapy dvt prophylaxis: Coumadin, follow inr Orthostatic bps Lying down 156/92, sitting 125/80, and standing was 140/70 restless legs start Requip 0.25mg at HS
[2017-12-09 11:49] VITALS: BMI 29.7
[2017-12-09 12:18] VITALS: BP 125/80; BP 140/70; BP 156/92; PULSE 61; PULSE 71; PULSE 83
[2017-12-09 12:57] VITALS: O2SAT 97
[2017-12-09] MEDS: Tamsulosin HCl 0.4 MG Capsule PO (16:58)
[2017-12-09 17:01] LABS: Bedside Glucose 157 mg/dL (70-110)
[2017-12-09 17:01] LABS: Bedside Glucose 115 mg/dL (70-110)
--- NOTE | 2017-12-09 19:23 | PCM.PROGNOTE ---
Subjective: Patient is a 77-year-old male who was admitted to [facility] with new right-sided weakness and increasing slurred speech. MRI of the brain done at the time of admission was negative for acute infarct. EEG was negative for epileptiform activity. Was subtherapeutic on warfarin at admission with a INR of 1.7. INR today is 2.2. Discussed with Dr. Vásquez and when the INR falls to less than 2.0 he will be started on apixaban. BMP on 12/08/2017 shows a mildly increased sodium at 146 and a chloride of 111. BUN was 17 and the creatinine is 0.89. Hemoglobin is within normal limits. He denies headache, chest pain, nausea, vomiting, pain. No palpitations and no lightheadedness. Has been doing well with physical therapy. Orthostatic vital signs today are mildly positive. He is 97-98% saturated on room air and he is afebrile. - Physical Exam General: Alert, Oriented x3, Cooperative, No apparent distress, Well developed, Well nourished, - - Speech is more intelligible than it was at discharge from the hospital on 12/07/2017. HEENT: Atraumatic, PERRLA, Normocephalic Oral: Dry Mucosa Neck: Supple, No Nodes, No Nuchal Rigidity Lungs: Clear to auscultation, No rhonchi, No wheeze, No rales Cardiovascular: Regular Rhythm, Normal S1, Normal S2, No murmurs, No Gallop Abdomen: Bowel Sounds Present, Soft, Non Tender, Non-Distended Extremities: No clubbing, No cyanosis, No edema, Peripheral Pulses Normal Skin: No rashes Neurological: - - Less dysarthria and speech is more intelligible. He has better strength in both the right upper extremity and right lower extremity. Was no drift. No facial asymmetry Psych/Mental Status: Normal Affect, Appropriate Vital Signs Temp Pulse Resp BP Pulse Ox 97.5 F L 71 18 156/92 H 97 12/09/17 07:26 12/09/17 12:18 12/09/17 07:26 12/09/17 12:18 12/09/17 12:57 Oxygen Delivery Method Room Air Weight: 212 lb 11.937 oz Body Mass Index (BMI) 29.7 Finger Stick Blood Glucose 87 Orthostatic Vital Signs Start: 12/09/17 12:18 Freq: Status: Active Protocol: Activity Type Activity Date Activity User E-Sign Co-Sign Detail Recorded Client Recorded Date Recorded By Document 12/09/17 12:18 CARPENTER PROTOTYPE [id number] 12/09/17 12:21 CARPENTER PROTOTYPE 12/09/17 12:18 Orthostatic Vitals Standing -Blood Pressure (90/60-120/80 mm Hg) 140/70 H -Extremity Use Right Arm -Pulse Rate (60-100 beats/min) 83 Sitting -Blood Pressure (90/60-120/80 mm Hg) 125/80 H -Extremity Use Right Arm -Pulse Rate (60-100 beats/min) 61 Lying -Blood Pressure (90/60-120/80 mm Hg) 156/92 H -Extremity Use Right Arm -Pulse Rate (60-100 beats/min) 71 Intake and Output for Last 24 Hours 12/07/17 12/08/17 12/09/17 23:59 23:59 23:59 Intake Total 240 / 240 240 / 240 720 / 720 Output Total 350 / 350 Balance 240 / 240 -110 / -110 720 / 720 Laboratory Tests Past 24 Hrs 12/09/17 05:30 PT 24.3 H INR 2.2 POC Glucose 12/09/17 12/09/17 12/09/17 16:54 11:31 06:55 POC Glucose 157 H 115 H 127 H 12/08/17 21:38 POC Glucose 133 H Medical Necessity - Tobacco Use Smoking Status: Never smoker Assessment/Plan Impressions 1. Suspected left MCA stroke at admission. MRI on the day of admission did not show any acute event but may have been done too quickly. He has not had repeat imaging as of yet. Physical exam was consistent with stroke at admission. 2. Subtherapeutic INR at admission to the hospital. When the INR decreases to less than 2.0 he will be started on apixaban. 3. MELISSA 4. 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 Chronic atrial fibrillation/flutter-rate controlled 7. Left atrial enlargement 8. Chronic anticoagulation 9. Hypertension 10. Well-controlled diabetes mellitus type 2 12. Hyperlipidemia-controlled 13. BPH Will continue to follow as long as he is in the rehab unit. Continue current medications Code Visit Inpatient E&M: 77608 [facility] Hosp L2
[2017-12-09 19:56] VITALS: BP 128/60; PULSE 58; RESP 17; TEMP 36.8; O2SAT 97
[2017-12-09 21:05] VITALS: BMI 29.7
[2017-12-09] MEDS: Pravastatin 20 MG Tablet PO (22:12)
[2017-12-09] MEDS: PARoxetine 10 MG Tablet 40 MG PO (22:12)
[2017-12-09] MEDS: Pramipexole Di-HCl 0.125 MG Tablet PO (22:13)
[2017-12-09 22:55] LABS: Bedside Glucose 143 mg/dL (70-110)
[2017-12-10 06:15] LABS: Prothrombin Time (Protime)PT. 22.5 SECONDS (11.7-14.9)
[2017-12-10 06:56] LABS: Bedside Glucose 147 mg/dL (70-110)
[2017-12-10 07:33] VITALS: BP 135/71; PULSE 59; RESP 16; TEMP 36.5; O2SAT 96
[2017-12-10] MEDS: Allopurinol 300 MG Tablet PO (07:46)
[2017-12-10] MEDS: Magnesium Oxide 400 MG Tablet PO (07:46)
[2017-12-10] MEDS: Aspirin 81 MG TAB.CHEW PO (07:46)
[2017-12-10] MEDS: Lisinopril 5 MG Tablet PO (08:51)
[2017-12-10] MEDS: Isosorbide Mononitrate 20 MG Tablet 10 MG PO ×2 (08:51→20:11)
[2017-12-10] MEDS: Carvedilol 6.25 MG Tablet PO ×2 (08:51→20:11)
[2017-12-10 09:39] VITALS: O2SAT 96
[2017-12-10 11:30] LABS: Bedside Glucose 166 mg/dL (70-110)
[2017-12-10] MEDS: Tamsulosin HCl 0.4 MG Capsule PO (16:58)
[2017-12-10 17:00] VITALS: BMI 29.7
[2017-12-10 17:06] LABS: Bedside Glucose 139 mg/dL (70-110)
[2017-12-10 20:00] VITALS: BP 143/62; PULSE 54; RESP 18; TEMP 36.6; O2SAT 98; BMI 29.7
[2017-12-10] MEDS: PARoxetine 10 MG Tablet 40 MG PO (20:10)
[2017-12-10] MEDS: Pramipexole Di-HCl 0.125 MG Tablet PO (20:10)
[2017-12-10] MEDS: Pravastatin 20 MG Tablet PO (20:11)
[2017-12-10] MEDS: Senna/Docusate Sodium 1 Tablet 2 TABLET PO (20:11)
[2017-12-10 20:21] LABS: Bedside Glucose 180 mg/dL (70-110)
--- NOTE | 2017-12-11 02:43 | NURSING ---
REVIEWED AND AGREE WITH [employer] P[employer]ER'S FIM AND HANDOFF CHARTING.
[2017-12-11 06:06] LABS: International Normalized Ratio 1.6
[2017-12-11 07:15] LABS: Bedside Glucose 159 mg/dL (70-110)
[2017-12-11] MEDS: Senna/Docusate Sodium 1 Tablet 2 TABLET PO (07:38)
[2017-12-11] MEDS: Magnesium Oxide 400 MG Tablet PO (07:38)
[2017-12-11] MEDS: Aspirin 81 MG TAB.CHEW PO (07:39)
[2017-12-11 08:51] VITALS: BP 119/62; PULSE 76; RESP 17; TEMP 36.4; O2SAT 96
[2017-12-11] MEDS: Carvedilol 6.25 MG Tablet PO ×2 (09:05→22:24)
[2017-12-11] MEDS: Allopurinol 300 MG Tablet PO (09:05)
[2017-12-11] MEDS: Lisinopril 5 MG Tablet PO (09:05)
[2017-12-11] MEDS: Isosorbide Mononitrate 20 MG Tablet 10 MG PO ×2 (09:05→22:23)
[2017-12-11] MEDS: APIXABAN 5 MG TABLET PO ×2 (11:46→22:24)
[2017-12-11 11:56] LABS: Bedside Glucose 192 mg/dL (70-110)
[2017-12-11 13:54] VITALS: BMI 29.7
--- NOTE | 2017-12-11 15:48 | PCM.PN.NEU ---
Subjective: Patient seen and examined. Sitting quietly in recliner, No new complaints. Tolerating therapy. INR today was 1.6 started on Eliquis 5 mg BID. , the ASA and the daily INRs have been D/C'd. No issues with GI/. - Physical Exam General: Alert, Oriented x3, Cooperative HEENT: Atraumatic, PERRLA, EOMI, Normocephalic Neck: Supple, No JVD, Negative Carotid Bruits Lungs: Clear to auscultation, Normal air movement Cardiovascular: Regular rate, No murmurs Abdomen: Bowel Sounds Present, Soft, Non Tender Extremities: No edema, Capillary Refill Less than 3 Seconds Skin: No rashes, No breakdown Musculoskeletal: No Tenderness to Palpation of Joints or Extremities Neurological: Cranial nerves II-XII grossly intact Psych/Mental Status: Normal Affect, Appropriate, Alert and oriented to time, place, person, mood and affect Vital Signs Temp Pulse Resp BP Pulse Ox 97.6 F L 76 17 119/62 96 12/11/17 08:51 12/11/17 08:51 12/11/17 08:51 12/11/17 08:51 12/11/17 08:51 Oxygen Delivery Method Room Air Weight: 98.792 kg Body Mass Index (BMI) 29.7 Finger Stick Blood Glucose 87 Orthostatic Vital Signs Start: 12/09/17 12:18 Freq: Status: Active Protocol: Activity Type Activity Date Activity User E-Sign Co-Sign Detail Recorded Client Recorded Date Recorded By Document 12/09/17 12:18 CHANGE MANAGER [id number] 12/09/17 12:21 CHANGE MANAGER 12/09/17 12:18 Orthostatic Vitals Standing -Blood Pressure (90/60-120/80) 140/70 H -Extremity Use Right Arm -Pulse Rate (60-100) 83 Sitting -Blood Pressure (90/60-120/80) 125/80 H -Extremity Use Right Arm -Pulse Rate (60-100) 61 Lying -Blood Pressure (90/60-120/80) 156/92 H -Extremity Use Right Arm -Pulse Rate (60-100) 71 Intake and Output for Last 24 Hours 12/09/17 12/10/17 12/11/17 23:59 23:59 23:59 Intake Total 720 / 720 1720 / 1720 720 / 720 Output Total 800 / 800 Balance 720 / 720 920 / 920 720 / 720 Laboratory Tests Past 24 Hrs 12/11/17 05:45 PT 19.0 H INR 1.6 POC Glucose 12/11/17 12/11/17 12/10/17 11:45 07:13 20:08 POC Glucose 192 H 159 H 180 H 12/10/17 16:58 POC Glucose 139 H Active Medications Acetaminophen (Tylenol) 650 mg PO Q6H PRN PRN PRN Reason: Mild Pain (0-3/10)/Headache Al Hydroxide/Mg Hydroxide (Mylanta Ii) 30 ml PO Q6H PRN PRN PRN Reason: Gastric Burning Allopurinol (Zyloprim) 300 mg PO DAILY [facility] Last Admin: 12/11/17 09:05 Dose: 300 mg Apixaban (Eliquis) 5 mg PO BID [facility] Last Admin: 12/11/17 11:46 Dose: 5 mg Bisacodyl (Dulcolax) 10 mg RECTAL .PRN X 1 PRN PRN Reason: Constipation Carvedilol (Coreg) 6.25 mg PO BID [facility] Last Admin: 12/11/17 09:05 Dose: 6.25 mg Dextrose (D50w Syringe) 0 gm IV X1 PRN; Protocol PRN Reason: Hypoglycemia Famotidine (Pepcid) 20 mg PO BID PRN PRN Reason: DYSPEPSIA Glucagon () 1 mg IM .X1 PRN PRN Reason: Hypoglycemia Insulin Aspart (Novolog Flexpen (Bkc)) 0 units SC ACHS [facility] PRN Reason: Protocol Last Admin: 12/11/17 11:47 Dose: 1 u Isosorbide Mononitrate (Monoket) 10 mg PO BID [facility] Last Admin: 12/11/17 09:05 Dose: 10 mg Lisinopril (Zestril) 5 mg PO DAILY [facility] Last Admin: 12/11/17 09:05 Dose: 5 mg Magnesium Hydroxide (Milk Of Magnesia) 30 ml PO .PRN X 1 PRN PRN Reason: Constipation Last Admin: 12/08/17 08:40 Dose: 30 ml [facility] Admin: 12/11/17 07:38 Dose: 400 mg [facility]) [facility] Last Admin: 12/11/17 07:38 Dose: 500 mg Paroxetine HCl (Paxil) 40 mg PO QHS [facility] Last Admin: 12/10/17 20:10 Dose: 40 mg Pramipexole Dihydrochloride (Mirapex) 0.125 mg PO HS [facility] Last Admin: 12/10/17 20:10 Dose: 0.125 mg Pravastatin Sodium (Pravachol) 20 mg PO QHS [facility] Last Admin: 12/10/17 20:11 Dose: 20 mg Senna/Docusate Sodium (Senokot-S, Amelie-Colace) 2 tablet PO BID [facility] Last Admin: 12/11/17 07:38 Dose: 2 tablet Tamsulosin HCl (Flomax) 0.4 mg PO DINNER [facility] Last Admin: 12/10/17 16:58 Dose: 0.4 mg Medical Necessity - Tobacco Use Smoking Status: Never smoker Assessment/Plan debility due to chronic left mca infarct with acute decompensation, admitted to rehab unit with goal of restoring prior level of functional independence pt for gait and balance ot for adls prn analgesics afib: started Eliquis 5mg BID today, INR is now at 1.6 bowel protocol speech therapy dvt prophylaxis: Eliquis, SCDs Orthostatic bps Lying down 156/92, sitting 125/80, and standing was 140/70 restless legs start Requip 0.25mg at HS started Eliquis 5mg BID, INR was 1.6, today. D/Cd the ASA and daily INRs
--- NOTE | 2017-12-11 15:56 | PN.NEURO_ITS ---
Subjective: Patient seen and examined. Sitting quietly in recliner, No new complaints. Tolerating therapy. INR today was 1.6 started on Eliquis 5 mg BID. , the ASA and the daily INRs have been D/C'd. No issues with GI/. - Physical Exam General: Alert, Oriented x3, Cooperative HEENT: Atraumatic, PERRLA, EOMI, Normocephalic Neck: Supple, No JVD, Negative Carotid Bruits Lungs: Clear to auscultation, Normal air movement Cardiovascular: Regular rate, No murmurs Abdomen: Bowel Sounds Present, Soft, Non Tender Extremities: No edema, Capillary Refill Less than 3 Seconds Skin: No rashes, No breakdown Musculoskeletal: No Tenderness to Palpation of Joints or Extremities Neurological: Cranial nerves II-XII grossly intact Psych/Mental Status: Normal Affect, Appropriate, Alert and oriented to time, place, person, mood and affect Vital Signs Temp Pulse Resp BP Pulse Ox 97.6 F L 76 17 119/62 96 12/11/17 08:51 12/11/17 08:51 12/11/17 08:51 12/11/17 08:51 12/11/17 08:51 Oxygen Delivery Method Room Air Weight: 98.792 kg Body Mass Index (BMI) 29.7 Finger Stick Blood Glucose 87 Orthostatic Vital Signs Start: 12/09/17 12:18 Freq: Status: Active Protocol: Activity Type Activity Date Activity User E-Sign Co-Sign Detail Recorded Client Recorded Date Recorded By Document 12/09/17 12:18 BAND SAW FILER [id number] 12/09/17 12:21 BAND SAW FILER 12/09/17 12:18 Orthostatic Vitals Standing -Blood Pressure (90/60-120/80) 140/70 H -Extremity Use Right Arm -Pulse Rate (60-100) 83 Sitting -Blood Pressure (90/60-120/80) 125/80 H -Extremity Use Right Arm -Pulse Rate (60-100) 61 Lying -Blood Pressure (90/60-120/80) 156/92 H -Extremity Use Right Arm -Pulse Rate (60-100) 71 Intake and Output for Last 24 Hours 12/09/17 12/10/17 12/11/17 23:59 23:59 23:59 Intake Total 720 / 720 1720 / 1720 720 / 720 Output Total 800 / 800 Balance 720 / 720 920 / 920 720 / 720 Laboratory Tests Past 24 Hrs 12/11/17 05:45 PT 19.0 H INR 1.6 POC Glucose 12/11/17 12/11/17 12/10/17 11:45 07:13 20:08 POC Glucose 192 H 159 H 180 H 12/10/17 16:58 POC Glucose 139 H Active Medications Acetaminophen (Tylenol) 650 mg PO Q6H PRN PRN PRN Reason: Mild Pain (0-3/10)/Headache Al Hydroxide/Mg Hydroxide (Mylanta Ii) 30 ml PO Q6H PRN PRN PRN Reason: Gastric Burning Allopurinol (Zyloprim) 300 mg PO DAILY [facility] Last Admin: 12/11/17 09:05 Dose: 300 mg Apixaban (Eliquis) 5 mg PO BID [facility] Last Admin: 12/11/17 11:46 Dose: 5 mg Bisacodyl (Dulcolax) 10 mg RECTAL .PRN X 1 PRN PRN Reason: Constipation Carvedilol (Coreg) 6.25 mg PO BID [facility] Last Admin: 12/11/17 09:05 Dose: 6.25 mg Dextrose (D50w Syringe) 0 gm IV X1 PRN; Protocol PRN Reason: Hypoglycemia Famotidine (Pepcid) 20 mg PO BID PRN PRN Reason: DYSPEPSIA Glucagon () 1 mg IM .X1 PRN PRN Reason: Hypoglycemia Insulin Aspart (Novolog Flexpen (Bkc)) 0 units SC ACHS [facility] PRN Reason: Protocol Last Admin: 12/11/17 11:47 Dose: 1 u Isosorbide Mononitrate (Monoket) 10 mg PO BID [facility] Last Admin: 12/11/17 09:05 Dose: 10 mg Lisinopril (Zestril) 5 mg PO DAILY [facility] Last Admin: 12/11/17 09:05 Dose: 5 mg Magnesium Hydroxide (Milk Of Magnesia) 30 ml PO .PRN X 1 PRN PRN Reason: Constipation Last Admin: 12/08/17 08:40 Dose: 30 ml [facility]esium Oxide (Mag-Ox 400) [facility] Last Admin: 12/11/17 07:38 Dose: 400 mg Metformin HCl (Glucophage) [facility] Last Admin: 12/11/17 07:38 Dose: 500 mg Paroxetine HCl (Paxil) 40 mg PO QHS [facility] Last Admin: 12/10/17 20:10 Dose: 40 mg Pramipexole Dihydrochloride (Mirapex) 0.125 mg PO HS [facility] Last Admin: 12/10/17 20:10 Dose: 0.125 mg Pravastatin Sodium (Pravachol) 20 mg PO QHS [facility] Last Admin: 12/10/17 20:11 Dose: 20 mg Senna/Docusate Sodium (Senokot-S, Amelie-Colace) 2 tablet PO BID [facility] Last Admin: 12/11/17 07:38 Dose: 2 tablet Tamsulosin HCl (Flomax) 0.4 mg PO DINNER [facility] Last Admin: 12/10/17 16:58 Dose: 0.4 mg Medical Necessity - Tobacco Use Smoking Status: Never smoker Assessment/Plan debility due to chronic left mca infarct with acute decompensation, admitted to rehab unit with goal of restoring prior level of functional independence pt for gait and balance ot for adls prn analgesics afib: started Eliquis 5mg BID today, INR is now at 1.6 bowel protocol speech therapy dvt prophylaxis: Eliquis, SCDs Orthostatic bps Lying down 156/92, sitting 125/80, and standing was 140/70 restless legs start Requip 0.25mg at HS started Eliquis 5mg BID, INR was 1.6, today. D/Cd the ASA and daily INRs
[2017-12-11 17:10] LABS: Bedside Glucose 123 mg/dL (70-110)
[2017-12-11] MEDS: Tamsulosin HCl 0.4 MG Capsule PO (17:53)
[2017-12-11 19:28] VITALS: BP 132/71; PULSE 55; RESP 16; TEMP 36.5; O2SAT 97
[2017-12-11] MEDS: Pravastatin 20 MG Tablet PO (22:22)
[2017-12-11] MEDS: PARoxetine 10 MG Tablet 40 MG PO (22:22)
[2017-12-11] MEDS: Pramipexole Di-HCl 0.125 MG Tablet PO (22:24)
[2017-12-11 22:35] LABS: Bedside Glucose 128 mg/dL (70-110)
[2017-12-12 06:46] LABS: Bedside Glucose 132 mg/dL (70-110)
[2017-12-12 07:35] VITALS: BP 159/74; PULSE 78; RESP 16; TEMP 37.2; O2SAT 97
[2017-12-12] MEDS: APIXABAN 5 MG TABLET PO ×2 (07:44→21:49)
[2017-12-12] MEDS: Magnesium Oxide 400 MG Tablet PO (07:44)
[2017-12-12] MEDS: Carvedilol 6.25 MG Tablet PO ×2 (09:30→21:49)
[2017-12-12] MEDS: Lisinopril 5 MG Tablet PO (09:30)
[2017-12-12] MEDS: Isosorbide Mononitrate 20 MG Tablet 10 MG PO ×2 (09:30→21:49)
[2017-12-12] MEDS: Allopurinol 300 MG Tablet PO (09:30)
--- NOTE | 2017-12-12 10:41 | CASEMGMT ---
Team meeting held. Patient present as well as patient spouse. No discharge date set at this time. Patient to continue with further care and treatment on the Inpatient Rehab Unit. Patient plans to discharge home with spouse at time of discharge. Patient approved 24 medicare days with a discharge on or before 12/31/17, patient and patient spouse voicing understanding. Support given. Will continue to follow. Tia ARROYO, CARRIER DRIVER
[2017-12-12 11:46] LABS: Bedside Glucose 105 mg/dL (70-110)
[2017-12-12] MEDS: Acetaminophen 325 MG Tablet 650 MG PO (12:03)
--- NOTE | 2017-12-12 15:34 | PCM.PN.NEU ---
Subjective: Staffed in team meeting. Family at bedside. Questions answered. With Physical therapy with bed mobility he requires minimal assistance to get to the side of the bed. Once sitting ambrocio the side he is contact guard to go from a sitting position to a standing position and requires a light hand to pivot. He is able to ambulate about 100 to 150 feet with a walker at contact guard. The plan is to continue working on walking up and down stairs and around obstacles in the community. With Occupational therapy his agricultural research engineer strength is stronger on his left then his right by 10lbs. He is minimal assist for personal care. With Speech therapy, he continues to have some slurred speech, working on says the word slowly and annunciating each syllable. Speaking more slowly and taking large words and breaking them into small segments before saying them. They are also working on range of motion, and strengthen the muscles used for speech. With nursing not issues. Will re-team next week. - Physical Exam General: Alert, Oriented x3, Cooperative HEENT: Atraumatic, PERRLA, EOMI, Normocephalic Neck: Supple, No JVD, Negative Carotid Bruits Lungs: Clear to auscultation, Normal air movement Cardiovascular: Regular rate, No murmurs Abdomen: Bowel Sounds Present, Soft, Non Tender Extremities: No edema, Capillary Refill Less than 3 Seconds Skin: No rashes, No breakdown Musculoskeletal: No Tenderness to Palpation of Joints or Extremities Neurological: Cranial nerves II-XII grossly intact Psych/Mental Status: Normal Affect, Appropriate, Alert and oriented to time, place, person, mood and affect Vital Signs Temp Pulse Resp BP Pulse Ox 99 F 78 16 159/74 H 97 12/12/17 07:35 12/12/17 07:35 12/12/17 07:35 12/12/17 07:35 12/12/17 07:35 Oxygen Delivery Method Room Air Weight: 98.792 kg Body Mass Index (BMI) 29.7 Finger Stick Blood Glucose 87 Orthostatic Vital Signs Start: 12/09/17 12:18 Freq: Status: Active Protocol: Activity Type Activity Date Activity User E-Sign Co-Sign Detail Recorded Client Recorded Date Recorded By Document 12/09/17 12:18 CAMP DINING ROOM ATTENDANT [id number] 12/09/17 12:21 CAMP DINING ROOM ATTENDANT 12/09/17 12:18 Orthostatic Vitals Standing -Blood Pressure (90/60-120/80) 140/70 H -Extremity Use Right Arm -Pulse Rate (60-100) 83 Sitting -Blood Pressure (90/60-120/80) 125/80 H -Extremity Use Right Arm -Pulse Rate (60-100) 61 Lying -Blood Pressure (90/60-120/80) 156/92 H -Extremity Use Right Arm -Pulse Rate (60-100) 71 Intake and Output for Last 24 Hours 12/10/17 12/11/17 12/12/17 23:59 23:59 23:59 Intake Total 1720 / 1720 1900 / 1900 260 / 260 Output Total 800 / 800 800 / 800 300 / 300 Balance 920 / 920 1100 / 1100 -40 / -40 POC Glucose 12/12/17 12/12/17 12/11/17 11:42 06:43 22:21 POC Glucose 105 132 H 128 H 12/11/17 17:06 POC Glucose 123 H Active Medications Acetaminophen (Tylenol) 650 mg PO Q6H PRN PRN PRN Reason: Mild Pain (0-3/10)/Headache Last Admin: 12/12/17 12:03 Dose: 650 mg Al Hydroxide/Mg Hydroxide (Mylanta Ii) 30 ml PO Q6H PRN PRN PRN Reason: Gastric Burning Allopurinol (Zyloprim) 300 mg PO DAILY [facility] Last Admin: 12/12/17 09:30 Dose: 300 mg Apixaban (Eliquis) 5 mg PO BID [facility] Last Admin: 12/12/17 07:44 Dose: 5 mg Bisacodyl (Dulcolax) 10 mg RECTAL .PRN X 1 PRN PRN Reason: Constipation Carvedilol (Coreg) 6.25 mg PO BID [facility] Last Admin: 12/12/17 09:30 Dose: 6.25 mg Dextrose (D50w Syringe) 0 gm IV X1 PRN; Protocol PRN Reason: Hypoglycemia Famotidine (Pepcid) 20 mg PO BID PRN PRN Reason: DYSPEPSIA Glucagon () 1 mg IM .X1 PRN PRN Reason: Hypoglycemia Insulin Aspart (Novolog Flexpen (Bkc)) 0 units SC [facility] PRN Reason: Protocol Last Admin: 12/12/17 12:02 Dose: Not Given Isosorbide Mononitrate (Monoket) 10 mg PO BID [facility] Last Admin: 12/12/17 09:30 Dose: 10 mg Lisinopril (Zestril) 5 mg PO DAILY [facility] Last Admin: 12/12/17 09:30 Dose: 5 mg Magnesium Hydroxide (Milk Of Magnesia) 30 ml PO .PRN X 1 PRN PRN Reason: Constipation Last Admin: 12/08/17 08:40 Dose: 30 ml [facility] ([facility]Ox 400) [facility] Admin: 12/12/17 07:44 Dose: 400 mg Metformin [facility] ([facility]ucophage) [facility] Last Admin: 12/12/17 07:44 Dose: 500 mg Parox[facility] (Paxil) [facility] Last Admin: 12/11/17 22:22 Dose: 40 mg Pramipexole Dihydrochloride (Mirapex) 0.125 mg PO HS [facility] Last Admin: 12/11/17 22:24 Dose: 0.125 mg Pravastatin Sodium (Pravachol) [facility] Last Admin: 12/11/17 22:22 Dose: 20 mg Senna/Docusate Sodium (Senokot-S, Amelie-Colace) 2 tablet PO BID [facility] Last Admin: 12/12/17 09:40 Dose: Not Given Tamsulosin HCl (Flomax) 0.4 mg PO DINNER [facility] Last Admin: 12/11/17 17:53 Dose: 0.4 mg Medical Necessity - Tobacco Use Smoking Status: Never smoker Assessment/Plan debility due to 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 D/Cd the ASA and daily INRs
--- NOTE | 2017-12-12 15:50 | PN.NEURO_ITS ---
Subjective: Staffed in team meeting. Family at bedside. Questions answered. With Physical therapy with bed mobility he requires minimal assistance to get to the side of the bed. Once sitting ambrocio the side he is contact guard to go from a sitting position to a standing position and requires a light hand to pivot. He is able to ambulate about 100 to 150 feet with a walker at contact guard. The plan is to continue working on walking up and down stairs and around obstacles in the community. 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 He is minimal assist for personal care. With Speech therapy, he continues to have some slurred speech, working on says the word slowly and annunciating each syllable. Speaking more slowly and taking large words and breaking them into small segments before saying them. They are also working on range of motion, and strengthen the muscles used for speech. With nursing not issues. Will re-team next week. - Physical Exam General: Alert, Oriented x3, Cooperative HEENT: Atraumatic, PERRLA, EOMI, Normocephalic Neck: Supple, No JVD, Negative Carotid Bruits Lungs: Clear to auscultation, Normal air movement Cardiovascular: Regular rate, No murmurs Abdomen: Bowel Sounds Present, Soft, Non Tender Extremities: No edema, Capillary Refill Less than 3 Seconds Skin: No rashes, No breakdown Musculoskeletal: No Tenderness to Palpation of Joints or Extremities Neurological: Cranial nerves II-XII grossly intact Psych/Mental Status: Normal Affect, Appropriate, Alert and oriented to time, place, person, mood and affect Vital Signs Temp Pulse Resp BP Pulse Ox 99 F 78 16 159/74 H 97 12/12/17 07:35 12/12/17 07:35 12/12/17 07:35 12/12/17 07:35 12/12/17 07:35 Oxygen Delivery Method Room Air Weight: 98.792 kg Body Mass Index (BMI) 29.7 Finger Stick Blood Glucose 87 Orthostatic Vital Signs Start: 12/09/17 12:18 Freq: Status: Active Protocol: Activity Type Activity Date Activity User E-Sign Co-Sign Detail Recorded Client Recorded Date Recorded By Document 12/09/17 12:18 METAL MOULDER [id number] 12/09/17 12:21 METAL MOULDER 12/09/17 12:18 Orthostatic Vitals Standing -Blood Pressure (90/60-120/80) 140/70 H -Extremity Use Right Arm -Pulse Rate (60-100) 83 Sitting -Blood Pressure (90/60-120/80) 125/80 H -Extremity Use Right Arm -Pulse Rate (60-100) 61 Lying -Blood Pressure (90/60-120/80) 156/92 H -Extremity Use Right Arm -Pulse Rate (60-100) 71 Intake and Output for Last 24 Hours 12/10/17 12/11/17 12/12/17 23:59 23:59 23:59 Intake Total 1720 / 1720 1900 / 1900 260 / 260 Output Total 800 / 800 800 / 800 300 / 300 Balance 920 / 920 1100 / 1100 -40 / -40 POC Glucose 12/12/17 12/12/17 12/11/17 11:42 06:43 22:21 POC Glucose 105 132 H 128 H 12/11/17 17:06 POC Glucose 123 H Active Medications Acetaminophen (Tylenol) 650 mg PO Q6H PRN PRN PRN Reason: Mild Pain (0-3/10)/Headache Last Admin: 12/12/17 12:03 Dose: 650 mg Al Hydroxide/Mg Hydroxide (Mylanta Ii) 30 ml PO Q6H PRN PRN PRN Reason: Gastric Burning Allopurinol (Zyloprim) 300 mg PO DAILY ON [facility] OF [facility] Last Admin: 12/12/17 09:30 Dose: 300 mg Apixaban (Eliquis) 5 mg PO BID ON [facility] Last Admin: 12/12/17 07:44 Dose: 5 mg Bisacodyl (Dulcolax) 10 mg RECTAL .PRN X 1 PRN PRN Reason: Constipation Carvedilol (Coreg) 6.25 mg PO BID ON [facility] Last Admin: 12/12/17 09:30 Dose: 6.25 mg Dextrose (D50w Syringe) 0 gm IV X1 PRN; Protocol PRN Reason: Hypoglycemia Famotidine (Pepcid) 20 mg PO BID PRN PRN Reason: DYSPEPSIA Glucagon () 1 mg IM .X1 PRN PRN Reason: Hypoglycemia Insulin Aspart (Novolog Flexpen (Bkc)) 0 units SC [facility] ON LICENSE OF [facility] PRN Reason: Protocol Last Admin: 12/12/17 12:02 Dose: Not Given Isosorbide Mononitrate (Monoket) 10 mg PO BID ON [facility] Last Admin: 12/12/17 09:30 Dose: 10 mg Lisinopril (Zestril) 5 mg PO DAILY [facility] Last Admin: 12/12/17 09:30 Dose: 5 mg Magnesium Hydroxide (Milk Of Magnesia) 30 ml PO .PRN X 1 PRN PRN Reason: Constipation Last Admin: 12/08/17 08:40 Dose: 30 ml [facility] 400) [facility] Last Admin: 12/12/17 07:44 Dose: 400 mg [facility] ([facility]) [facility] Last Admin: 12/12/17 07:44 Dose: 500 [facility] Last Admin: 12/11/17 22:22 Dose: 40 mg Pramipexole Dihydrochloride (Mirapex) 0.125 mg PO HS [facility] Last Admin: 12/11/17 22:24 Dose: 0.125 mg [facility]) [facility] Last Admin: 12/11/17 22:22 Dose: 20 mg Senna/Docusate Sodium (Senokot-S, Amelie-Colace) 2 tablet PO BID ON [facility] Last Admin: 12/12/17 09:40 Dose: Not Given Tamsulosin HCl (Flomax) 0.4 mg PO DINNER ON LICENSE OF [facility] Last Admin: 12/11/17 17:53 Dose: 0.4 mg Medical Necessity - Tobacco Use Smoking Status: Never smoker Assessment/Plan debility due to 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 D/Cd the ASA and daily INRs
[2017-12-12 17:00] VITALS: BMI 29.7
[2017-12-12] MEDS: Tamsulosin HCl 0.4 MG Capsule PO (17:11)
[2017-12-12 17:21] LABS: Bedside Glucose 176 mg/dL (70-110)
[2017-12-12 19:31] VITALS: BP 135/63; PULSE 56; RESP 17; TEMP 36.5; O2SAT 95
[2017-12-12 21:43] VITALS: BMI 29.7
[2017-12-12] MEDS: Pramipexole Di-HCl 0.125 MG Tablet PO (21:49)
[2017-12-12] MEDS: Pravastatin 20 MG Tablet PO (21:49)
[2017-12-12] MEDS: PARoxetine 10 MG Tablet 40 MG PO (21:52)
[2017-12-12 22:05] LABS: Bedside Glucose 121 mg/dL (70-110)
[2017-12-13] MEDS: Acetaminophen 325 MG Tablet 650 MG PO (07:07)
[2017-12-13 07:16] LABS: Bedside Glucose 132 mg/dL (70-110)
[2017-12-13 08:45] VITALS: BP 115/62; PULSE 78; RESP 17; TEMP 36.5; O2SAT 96
[2017-12-13] MEDS: Carvedilol 6.25 MG Tablet PO ×2 (10:58→21:49)
[2017-12-13] MEDS: Isosorbide Mononitrate 20 MG Tablet 10 MG PO ×2 (10:58→21:49)
[2017-12-13] MEDS: APIXABAN 5 MG TABLET PO ×2 (10:58→21:49)
[2017-12-13] MEDS: Allopurinol 300 MG Tablet PO (10:58)
[2017-12-13] MEDS: Magnesium Oxide 400 MG Tablet PO (10:58)
[2017-12-13] MEDS: Lisinopril 5 MG Tablet PO (10:59)
[2017-12-13] MEDS: Senna/Docusate Sodium 1 Tablet 2 TABLET PO (11:00)
--- NOTE | 2017-12-13 11:45 | PCM.PN.NEU ---
Subjective: Patient seen during Physical therapy session. Tolerating therapy. Denies any shortness of breath, chest pains, blurry vision or double vision. No issues with GI/. - Physical Exam General: Alert, Oriented x3, Cooperative HEENT: Atraumatic, PERRLA, EOMI, Normocephalic Neck: Supple, No JVD, Negative Carotid Bruits Lungs: Clear to auscultation, Normal air movement Cardiovascular: Regular rate, No murmurs Abdomen: Bowel Sounds Present, Soft, Non Tender Extremities: No edema, Capillary Refill Less than 3 Seconds Skin: No rashes, No breakdown Musculoskeletal: No Tenderness to Palpation of Joints or Extremities Neurological: Cranial nerves II-XII grossly intact Psych/Mental Status: Normal Affect, Appropriate Vital Signs Temp Pulse Resp BP Pulse Ox 97.7 F L 78 17 115/62 96 12/13/17 08:45 12/13/17 08:45 12/13/17 08:45 12/13/17 08:45 12/13/17 08:45 Oxygen Delivery Method Room Air Weight: 98.792 kg Body Mass Index (BMI) 29.7 Finger Stick Blood Glucose 87 Orthostatic Vital Signs Start: 12/09/17 12:18 Freq: Status: Active Protocol: Activity Type Activity Date Activity User E-Sign Co-Sign Detail Recorded Client Recorded Date Recorded By Document 12/09/17 12:18 JITNEY DRIVER [id number] 12/09/17 12:21 JITNEY DRIVER 12/09/17 12:18 Orthostatic Vitals Standing -Blood Pressure (90/60-120/80) 140/70 H -Extremity Use Right Arm -Pulse Rate (60-100) 83 Sitting -Blood Pressure (90/60-120/80) 125/80 H -Extremity Use Right Arm -Pulse Rate (60-100) 61 Lying -Blood Pressure (90/60-120/80) 156/92 H -Extremity Use Right Arm -Pulse Rate (60-100) 71 Intake and Output for Last 24 Hours 12/11/17 12/12/17 12/13/17 23:59 23:59 23:59 Intake Total 1900 / 1900 1200 / 1200 420 / 420 Output Total 800 / 800 1550 / 1550 450 / 450 Balance 1100 / 1100 -350 / -350 -30 / -30 POC Glucose 12/13/17 12/12/17 12/12/17 06:43 21:48 17:03 POC Glucose 132 H 121 H 176 H 12/12/17 11:42 POC Glucose 105 Active Medications Acetaminophen (Tylenol) 650 mg PO Q6H PRN PRN PRN Reason: Mild Pain (0-3/10)/Headache Last Admin: 12/13/17 07:07 Dose: 650 mg Al Hydroxide/Mg Hydroxide (Mylanta Ii) 30 ml PO Q6H PRN PRN PRN Reason: Gastric Burning Allopurinol (Zyloprim) 300 mg PO DAILY [facility] Last Admin: 12/13/17 10:58 Dose: 300 mg Apixaban (Eliquis) 5 mg PO BID [facility] Last Admin: 12/13/17 10:58 Dose: 5 mg Bisacodyl (Dulcolax) 10 mg RECTAL .PRN X 1 PRN PRN Reason: Constipation Carvedilol (Coreg) 6.25 mg PO BID [facility] Last Admin: 12/13/17 10:58 Dose: 6.25 mg Dextrose (D50w Syringe) 0 gm IV X1 PRN; Protocol PRN Reason: Hypoglycemia Famotidine (Pepcid) 20 mg PO BID PRN PRN Reason: DYSPEPSIA Glucagon () 1 mg IM .X1 PRN PRN Reason: Hypoglycemia Insulin Aspart (Novolog Flexpen (Bkc)) 0 units SC [facility] PRN Reason: Protocol Last Admin: 12/13/17 06:52 Dose: Not Given Isosorbide Mononitrate (Monoket) 10 mg PO BID [facility] Last Admin: 12/13/17 10:58 Dose: 10 mg Lisinopril (Zestril) 5 mg PO DAILY [facility] Last Admin: 12/13/17 10:59 Dose: 5 mg Magnesium Hydroxide (Milk Of Magnesia) 30 ml PO .PRN X 1 PRN PRN Reason: Constipation Last Admin: 12/08/17 08:40 Dose: 30 ml Magnesium [facility]ide ([facility]-Ox 400) [facility] Last Admin: 12/13/17 10:58 Dose: 400 mg Metformin [facility] (Glucophage) [facility] Last Admin: 12/13/17 10:58 Dose: 500 mg Paroxetine HCl (Paxil) 40 mg PO QHS [facility] Last Admin: 12/12/17 21:52 Dose: 40 mg Pramipexole Dihydrochloride (Mirapex) 0.125 mg PO HS [facility] Last Admin: 12/12/17 21:49 Dose: 0.125 mg Pravastatin Sodium (Pravachol) 20 mg PO QHS [facility] Last Admin: 12/12/17 21:49 Dose: 20 mg Senna/Docusate Sodium (Senokot-S, Amelie-Colace) 2 tablet PO BID [facility] Last Admin: 12/13/17 11:00 Dose: 2 tablet Tamsulosin HCl (Flomax) 0.4 mg PO DINNER [facility] Last Admin: 12/12/17 17:11 Dose: 0.4 mg Medical Necessity - Tobacco Use Smoking Status: Never smoker Assessment/Plan debility due to chronic left mca infarct with acute decompensation, admitted to rehab unit with goal of restoring prior level of functional independence - Pt for gait and balance - Ot for adls - PRN analgesics - Afib: started Eliquis 5mg BID today, INR is now at 1.6 - Bowel protocol - Speech therapy - DVT prophylaxis: YANIRA Hughess - Orthostatic bps Lying down 156/92, sitting 125/80, and standing was 140/70 - Restless legs start Requip 0.25mg at HS - Started Eliquis 5mg BID, INR was 1.6, today. D/Cd the ASA and daily INRs
[2017-12-13 11:51] LABS: Bedside Glucose 128 mg/dL (70-110)
--- NOTE | 2017-12-13 11:52 | PN.NEURO_ITS ---
Subjective: Patient seen during Physical therapy session. Tolerating therapy. Denies any shortness of breath, chest pains, blurry vision or double vision. No issues with GI/. - Physical Exam General: Alert, Oriented x3, Cooperative HEENT: Atraumatic, PERRLA, EOMI, Normocephalic Neck: Supple, No JVD, Negative Carotid Bruits Lungs: Clear to auscultation, Normal air movement Cardiovascular: Regular rate, No murmurs Abdomen: Bowel Sounds Present, Soft, Non Tender Extremities: No edema, Capillary Refill Less than 3 Seconds Skin: No rashes, No breakdown Musculoskeletal: No Tenderness to Palpation of Joints or Extremities Neurological: Cranial nerves II-XII grossly intact Psych/Mental Status: Normal Affect, Appropriate Vital Signs Temp Pulse Resp BP Pulse Ox 97.7 F L 78 17 115/62 96 12/13/17 08:45 12/13/17 08:45 12/13/17 08:45 12/13/17 08:45 12/13/17 08:45 Oxygen Delivery Method Room Air Weight: 98.792 kg Body Mass Index (BMI) 29.7 Finger Stick Blood Glucose 87 Orthostatic Vital Signs Start: 12/09/17 12:18 Freq: Status: Active Protocol: Activity Type Activity Date Activity User E-Sign Co-Sign Detail Recorded Client Recorded Date Recorded By Document 12/09/17 12:18 PRODUCTION ADMINISTRATIVE ASSISTANT [id number] 12/09/17 12:21 PRODUCTION ADMINISTRATIVE ASSISTANT 12/09/17 12:18 Orthostatic Vitals Standing -Blood Pressure (90/60-120/80) 140/70 H -Extremity Use Right Arm -Pulse Rate (60-100) 83 Sitting -Blood Pressure (90/60-120/80) 125/80 H -Extremity Use Right Arm -Pulse Rate (60-100) 61 Lying -Blood Pressure (90/60-120/80) 156/92 H -Extremity Use Right Arm -Pulse Rate (60-100) 71 Intake and Output for Last 24 Hours 12/11/17 12/12/17 12/13/17 23:59 23:59 23:59 Intake Total 1900 / 1900 1200 / 1200 420 / 420 Output Total 800 / 800 1550 / 1550 450 / 450 Balance 1100 / 1100 -350 / -350 -30 / -30 POC Glucose 12/13/17 12/12/17 12/12/17 06:43 21:48 17:03 POC Glucose 132 H 121 H 176 H 12/12/17 11:42 POC Glucose 105 Active Medications Acetaminophen (Tylenol) 650 mg PO Q6H PRN PRN PRN Reason: Mild Pain (0-3/10)/Headache Last Admin: 12/13/17 07:07 Dose: 650 mg Al Hydroxide/Mg Hydroxide (Mylanta Ii) 30 ml PO Q6H PRN PRN PRN Reason: Gastric Burning Allopurinol (Zyloprim) 300 mg PO DAILY [facility] Last Admin: 12/13/17 10:58 Dose: 300 mg Apixaban (Eliquis) 5 mg PO BID [facility] Last Admin: 12/13/17 10:58 Dose: 5 mg Bisacodyl (Dulcolax) 10 mg RECTAL .PRN X 1 PRN PRN Reason: Constipation Carvedilol (Coreg) 6.25 mg PO BID [facility] Last Admin: 12/13/17 10:58 Dose: 6.25 mg Dextrose (D50w Syringe) 0 gm IV X1 PRN; Protocol PRN Reason: Hypoglycemia Famotidine (Pepcid) 20 mg PO BID PRN PRN Reason: DYSPEPSIA Glucagon () 1 mg IM .X1 PRN PRN Reason: Hypoglycemia Insulin Aspart (Novolog Flexpen (Bkc)) 0 units SC [facility] PRN Reason: Protocol Last Admin: 12/13/17 06:52 Dose: Not Given Isosorbide Mononitrate (Monoket) 10 mg PO BID [facility] Last Admin: 12/13/17 10:58 Dose: 10 mg Lisinopril (Zestril) 5 mg PO DAILY [facility] Last Admin: 12/13/17 10:59 Dose: 5 mg Magnesium Hydroxide (Milk Of Magnesia) 30 ml PO .PRN X 1 PRN PRN Reason: Constipation Last Admin: 12/08/17 08:40 Dose: 30 ml [facility]esium Oxide ([facility]-Ox 400) [facility] Last Admin: 12/13/17 10:58 Dose: 400 mg Metformin [facility] (Glucophage) [facility] Last Admin: 12/13/17 10:58 Dose: 500 mg Paroxetine HCl (Paxil) 40 mg PO QHS [facility] Last Admin: 12/12/17 21:52 Dose: 40 mg Pramipexole Dihydrochloride (Mirapex) 0.125 mg PO HS [facility] Last Admin: 12/12/17 21:49 Dose: 0.125 mg Pravastatin Sodium (Pravachol) 20 mg PO QHS [facility] Last Admin: 12/12/17 21:49 Dose: 20 mg Senna/Docusate Sodium (Senokot-S, Amelie-Colace) 2 tablet PO BID [facility] Last Admin: 12/13/17 11:00 Dose: 2 tablet Tamsulosin HCl (Flomax) 0.4 mg PO DINNER [facility] Last Admin: 12/12/17 17:11 Dose: 0.4 mg Medical Necessity - Tobacco Use Smoking Status: Never smoker Assessment/Plan debility due to chronic left mca infarct with acute decompensation, admitted to rehab unit with goal of restoring prior level of functional independence - Pt for gait and balance - Ot for adls - PRN analgesics - Afib: started Eliquis 5mg BID today, INR is now at 1.6 - Bowel protocol - Speech therapy - DVT prophylaxis: YANIRA Hughess - Orthostatic bps Lying down 156/92, sitting 125/80, and standing was 140/70 - Restless legs start Requip 0.25mg at HS - Started Eliquis 5mg BID, INR was 1.6, today. D/Cd the ASA and daily INRs
[2017-12-13 16:05] VITALS: BMI 29.7
[2017-12-13 17:05] LABS: Bedside Glucose 112 mg/dL (70-110)
[2017-12-13] MEDS: Tamsulosin HCl 0.4 MG Capsule PO (17:16)
[2017-12-13 21:41] VITALS: BP 127/69; PULSE 54; RESP 18; TEMP 36.6; O2SAT 97
[2017-12-13] MEDS: Pramipexole Di-HCl 0.125 MG Tablet PO (21:49)
[2017-12-13] MEDS: PARoxetine 10 MG Tablet 40 MG PO (21:50)
[2017-12-13] MEDS: Pravastatin 20 MG Tablet PO (21:51)
[2017-12-13 22:00] LABS: Bedside Glucose 126 mg/dL (70-110)
[2017-12-14 00:08] VITALS: BMI 29.7
--- NOTE | 2017-12-14 04:43 | NURSING ---
Reviewed and agree with LPNs fims and handoff
[2017-12-14 07:01] LABS: Bedside Glucose 121 mg/dL (70-110)
[2017-12-14] MEDS: Acetaminophen 325 MG Tablet 650 MG PO ×2 (07:42→17:04)
[2017-12-14 08:08] VITALS: BP 141/74; PULSE 70; RESP 18; TEMP 37; O2SAT 98
[2017-12-14] MEDS: Carvedilol 6.25 MG Tablet PO ×2 (09:32→21:56)
[2017-12-14] MEDS: APIXABAN 5 MG TABLET PO ×2 (09:32→21:56)
[2017-12-14] MEDS: Magnesium Oxide 400 MG Tablet PO (09:32)
[2017-12-14] MEDS: Isosorbide Mononitrate 20 MG Tablet 10 MG PO ×2 (09:33→21:56)
[2017-12-14] MEDS: Lisinopril 5 MG Tablet PO (09:33)
[2017-12-14] MEDS: Allopurinol 300 MG Tablet PO (09:34)
[2017-12-14 09:42] VITALS: BMI 29.7
[2017-12-14 11:20] LABS: Bedside Glucose 128 mg/dL (70-110)
[2017-12-14 16:56] LABS: Bedside Glucose 126 mg/dL (70-110)
[2017-12-14] MEDS: Tamsulosin HCl 0.4 MG Capsule PO (17:04)
[2017-12-14] MEDS: Pramipexole Di-HCl 0.125 MG Tablet PO (21:56)
[2017-12-14] MEDS: Pravastatin 20 MG Tablet PO (21:57)
[2017-12-14] MEDS: PARoxetine 10 MG Tablet 40 MG PO (21:57)
[2017-12-14 22:00] VITALS: BP 138/62; PULSE 54; RESP 18; TEMP 36.7; O2SAT 96
[2017-12-14 22:11] LABS: Bedside Glucose 126 mg/dL (70-110)
[2017-12-15 00:26] VITALS: BMI 29.7
--- NOTE | 2017-12-15 04:37 | NURSING ---
Reviewed and agree with LPNs fims and handoff
[2017-12-15] MEDS: Acetaminophen 325 MG Tablet 650 MG PO ×2 (06:25→14:46)
[2017-12-15 07:36] LABS: Bedside Glucose 120 mg/dL (70-110)
[2017-12-15 07:45] VITALS: BP 112/55; PULSE 73; RESP 18; TEMP 36.4; O2SAT 98
[2017-12-15] MEDS: Lisinopril 5 MG Tablet PO (09:38)
[2017-12-15] MEDS: Magnesium Oxide 400 MG Tablet PO (09:38)
[2017-12-15] MEDS: Allopurinol 300 MG Tablet PO (09:38)
[2017-12-15] MEDS: Isosorbide Mononitrate 20 MG Tablet 10 MG PO ×2 (09:38→20:59)
[2017-12-15] MEDS: Carvedilol 6.25 MG Tablet PO ×2 (09:38→20:58)
[2017-12-15] MEDS: APIXABAN 5 MG TABLET PO ×2 (09:38→20:58)
[2017-12-15 09:42] VITALS: BMI 29.7
[2017-12-15] MEDS: Senna/Docusate Sodium 1 Tablet 2 TABLET PO ×2 (10:16→20:59)
[2017-12-15 11:25] LABS: Bedside Glucose 199 mg/dL (70-110)
[2017-12-15 16:41] LABS: Bedside Glucose 116 mg/dL (70-110)
[2017-12-15] MEDS: Tamsulosin HCl 0.4 MG Capsule PO (17:05)
[2017-12-15 20:45] VITALS: BP 146/68; PULSE 78; RESP 18; TEMP 36.5; O2SAT 95; BMI 29.7
[2017-12-15] MEDS: Pramipexole Di-HCl 0.125 MG Tablet PO (20:58)
[2017-12-15 21:10] LABS: Bedside Glucose 185 mg/dL (70-110)
[2017-12-15] MEDS: Pravastatin 20 MG Tablet PO (22:24)
[2017-12-15] MEDS: PARoxetine 10 MG Tablet 40 MG PO (22:24)
--- NOTE | 2017-12-16 01:40 | NURSING ---
Reviewed and agree with LPNs fims and handoff
[2017-12-16] MEDS: Acetaminophen 325 MG Tablet 650 MG PO ×2 (06:33→16:43)
[2017-12-16 06:36] LABS: Bedside Glucose 133 mg/dL (70-110)
[2017-12-16 07:43] VITALS: BP 130/71; PULSE 64; RESP 18; O2SAT 98
[2017-12-16] MEDS: Carvedilol 6.25 MG Tablet PO ×2 (07:44→19:56)
[2017-12-16] MEDS: Magnesium Oxide 400 MG Tablet PO (07:44)
[2017-12-16] MEDS: APIXABAN 5 MG TABLET PO ×2 (07:45→19:57)
[2017-12-16] MEDS: Isosorbide Mononitrate 20 MG Tablet 10 MG PO ×2 (07:45→19:56)
[2017-12-16] MEDS: Senna/Docusate Sodium 1 Tablet 2 TABLET PO ×2 (07:45→19:56)
[2017-12-16] MEDS: Allopurinol 300 MG Tablet PO (07:45)
[2017-12-16] MEDS: Lisinopril 5 MG Tablet PO (07:45)
[2017-12-16 11:50] LABS: Bedside Glucose 114 mg/dL (70-110)
[2017-12-16 12:39] VITALS: BMI 29.7
[2017-12-16 16:36] LABS: Bedside Glucose 134 mg/dL (70-110)
--- NOTE | 2017-12-16 16:37 | PCM.PN.NEU ---
Subjective: Patient seen during Physical therapy session. Tolerating therapy. He is not happy about doing therapy, feels its a waste of his time. He is improving in his walking and in his conversations skills. Denies any shortness of breath or chest pains. Tolerating a cardiac diet. No issues with GI/. - Physical Exam General: Alert, Oriented x3, Cooperative HEENT: Atraumatic, PERRLA, EOMI, Normocephalic Neck: Supple, No JVD, Negative Carotid Bruits Lungs: Clear to auscultation, Normal air movement Cardiovascular: Regular rate, No murmurs Abdomen: Bowel Sounds Present, Soft, Non Tender Extremities: No edema, Capillary Refill Less than 3 Seconds Skin: No rashes, No breakdown Musculoskeletal: No Tenderness to Palpation of Joints or Extremities Neurological: Cranial nerves II-XII grossly intact Psych/Mental Status: Normal Affect, Appropriate, Alert and oriented to time, place, person, mood and affect Vital Signs Temp Pulse Resp BP Pulse Ox 97.7 F L 64 18 130/71 H 98 12/15/17 20:45 12/16/17 07:43 12/16/17 07:43 12/16/17 07:43 12/16/17 07:43 Oxygen Delivery Method Room Air Weight: 98.792 kg Body Mass Index (BMI) 29.7 Finger Stick Blood Glucose 87 Orthostatic Vital Signs Start: 12/09/17 12:18 Freq: Status: Active Protocol: Activity Type Activity Date Activity User E-Sign Co-Sign Detail Recorded Client Recorded Date Recorded By Document 12/09/17 12:18 METAL OFF BEARER [id number] 12/09/17 12:21 METAL OFF BEARER 12/09/17 12:18 Orthostatic Vitals Standing -Blood Pressure (90/60-120/80) 140/70 H -Extremity Use Right Arm -Pulse Rate (60-100) 83 Sitting -Blood Pressure (90/60-120/80) 125/80 H -Extremity Use Right Arm -Pulse Rate (60-100) 61 Lying -Blood Pressure (90/60-120/80) 156/92 H -Extremity Use Right Arm -Pulse Rate (60-100) 71 Intake and Output for Last 24 Hours 12/14/17 12/15/17 12/16/17 23:59 23:59 23:59 Intake Total 1680 / 1680 1979 Output Total 125 / 125 Balance 1555 / 1555 1979 POC Glucose 12/16/17 12/16/17 12/16/17 16:33 11:47 06:32 POC Glucose 134 H 114 H 133 H 12/15/17 12/15/17 20:57 16:35 POC Glucose 185 H 116 H Active Medications Acetaminophen (Tylenol) 650 mg PO Q6H PRN PRN PRN Reason: Mild Pain (0-3/10)/Headache Last Admin: 12/16/17 06:33 Dose: 650 mg Al Hydroxide/Mg Hydroxide (Mylanta Ii) 30 ml PO Q6H PRN PRN PRN Reason: Gastric Burning Allopurinol (Zyloprim) 300 mg PO DAILY [facility] Last Admin: 12/16/17 07:45 Dose: 300 mg Apixaban (Eliquis) 5 mg PO BID [facility] Last Admin: 12/16/17 07:45 Dose: 5 mg Bisacodyl (Dulcolax) 10 mg RECTAL .PRN X 1 PRN PRN Reason: Constipation Carvedilol (Coreg) 6.25 mg PO BID [facility] Last Admin: 12/16/17 07:44 Dose: 6.25 mg Dextrose (D50w Syringe) 0 gm IV X1 PRN; Protocol PRN Reason: Hypoglycemia Famotidine (Pepcid) 20 mg PO BID PRN PRN Reason: DYSPEPSIA Glucagon () 1 mg IM .X1 PRN PRN Reason: Hypoglycemia Insulin Aspart (Novolog Flexpen (Bkc)) [facility] PRN Reason: Protocol Last Admin: 12/16/17 11:50 Dose: Not Given Isosorbide Mononitrate (Monoket) 10 mg PO BID [facility] Last Admin: 12/16/17 07:45 Dose: 10 mg Lisinopril (Zestril) 5 mg PO DAILY [facility] Last Admin: 12/16/17 07:45 Dose: 5 mg Magnesium Hydroxide (Milk Of Magnesia) 30 ml PO .PRN X 1 PRN PRN Reason: Constipation Last Admin: 12/08/17 08:40 Dose: 30 ml Magnesium [facility]ide ([facility]-Ox 400) [facility] Last Admin: 12/16/17 07:44 Dose: 400 mg [facility] ([facility]) [facility] Last Admin: 12/16/17 07:44 Dose: 500 mg Paroxetine HCl (Paxil) 40 mg PO QHS [facility] Last Admin: 12/15/17 22:24 Dose: 40 mg Pramipexole Dihydrochloride (Mirapex) 0.125 mg PO HS [facility] Last Admin: 12/15/17 20:58 Dose: 0.125 mg Pravastatin Sodium (Pravachol) 20 mg PO QHS [facility] Last Admin: 12/15/17 22:24 Dose: 20 mg Senna/Docusate Sodium (Senokot-S, Amelie-Colace) 2 tablet PO BID [facility] Last Admin: 12/16/17 07:45 Dose: 2 tablet Tamsulosin HCl (Flomax) 0.4 mg PO DINNER [facility] Last Admin: 12/15/17 17:05 Dose: 0.4 mg Medical Necessity - Tobacco Use Smoking Status: Never smoker Tobacco Use: Non-smoker Assessment/Plan debility due to 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 D/Cd the ASA and daily INRs
--- NOTE | 2017-12-16 16:40 | PN.NEURO_ITS ---
Subjective: Patient seen during Physical therapy session. Tolerating therapy. He is not happy about doing therapy, feels its a waste of his time. He is improving in his walking and in his conversations skills. Denies any shortness of breath or chest pains. Tolerating a cardiac diet. No issues with GI/. - Physical Exam General: Alert, Oriented x3, Cooperative HEENT: Atraumatic, PERRLA, EOMI, Normocephalic Neck: Supple, No JVD, Negative Carotid Bruits Lungs: Clear to auscultation, Normal air movement Cardiovascular: Regular rate, No murmurs Abdomen: Bowel Sounds Present, Soft, Non Tender Extremities: No edema, Capillary Refill Less than 3 Seconds Skin: No rashes, No breakdown Musculoskeletal: No Tenderness to Palpation of Joints or Extremities Neurological: Cranial nerves II-XII grossly intact Psych/Mental Status: Normal Affect, Appropriate, Alert and oriented to time, place, person, mood and affect Vital Signs Temp Pulse Resp BP Pulse Ox 97.7 F L 64 18 130/71 H 98 12/15/17 20:45 12/16/17 07:43 12/16/17 07:43 12/16/17 07:43 12/16/17 07:43 Oxygen Delivery Method Room Air Weight: 98.792 kg Body Mass Index (BMI) 29.7 Finger Stick Blood Glucose 87 Orthostatic Vital Signs Start: 12/09/17 12:18 Freq: Status: Active Protocol: Activity Type Activity Date Activity User E-Sign Co-Sign Detail Recorded Client Recorded Date Recorded By Document 12/09/17 12:18 INDUSTRIAL BOILERMAKER [id number] 12/09/17 12:21 INDUSTRIAL BOILERMAKER 12/09/17 12:18 Orthostatic Vitals Standing -Blood Pressure (90/60-120/80) 140/70 H -Extremity Use Right Arm -Pulse Rate (60-100) 83 Sitting -Blood Pressure (90/60-120/80) 125/80 H -Extremity Use Right Arm -Pulse Rate (60-100) 61 Lying -Blood Pressure (90/60-120/80) 156/92 H -Extremity Use Right Arm -Pulse Rate (60-100) 71 Intake and Output for Last 24 Hours 12/14/17 12/15/17 12/16/17 23:59 23:59 23:59 Intake Total 1680 / 1680 1979 Output Total 125 / 125 Balance 1555 / 1555 1979 POC Glucose 12/16/17 12/16/17 12/16/17 16:33 11:47 06:32 POC Glucose 134 H 114 H 133 H 12/15/17 12/15/17 20:57 16:35 POC Glucose 185 H 116 H Active Medications Acetaminophen (Tylenol) 650 mg PO Q6H PRN PRN PRN Reason: Mild Pain (0-3/10)/Headache Last Admin: 12/16/17 06:33 Dose: 650 mg Al Hydroxide/Mg Hydroxide (Mylanta Ii) 30 ml PO Q6H PRN PRN PRN Reason: Gastric Burning Allopurinol (Zyloprim) 300 mg PO DAILY [facility] Last Admin: 12/16/17 07:45 Dose: 300 mg Apixaban (Eliquis) 5 mg PO BID [facility] Last Admin: 12/16/17 07:45 Dose: 5 mg Bisacodyl (Dulcolax) 10 mg RECTAL .PRN X 1 PRN PRN Reason: Constipation Carvedilol (Coreg) 6.25 mg PO BID [facility] Last Admin: 12/16/17 07:44 Dose: 6.25 mg Dextrose (D50w Syringe) 0 gm IV X1 PRN; Protocol PRN Reason: Hypoglycemia Famotidine (Pepcid) 20 mg PO BID PRN PRN Reason: DYSPEPSIA Glucagon () 1 mg IM .X1 PRN PRN Reason: Hypoglycemia Insulin Aspart (Novolog Flexpen (Bkc)) 0 units SC [facility] PRN Reason: Protocol Last Admin: 12/16/17 11:50 Dose: Not Given Isosorbide Mononitrate (Monoket) 10 mg PO BID [facility] Last Admin: 12/16/17 07:45 Dose: 10 mg Lisinopril (Zestril) 5 mg PO DAILY [facility] Last Admin: 12/16/17 07:45 Dose: 5 mg Magnesium Hydroxide (Milk Of Magnesia) 30 ml PO .PRN X 1 PRN PRN Reason: Constipation Last Admin: 12/08/17 08:40 Dose: 30 ml [facility] ([facility] 400[facility] Last Admin: 12/16/17 07:44 Dose: 400 mg [facility] Last Admin: 12/16/17 07:44 Dose: 500 mg Paroxetine HCl (Paxil) 40 mg PO QHS [facility] Last Admin: 12/15/17 22:24 Dose: 40 mg Pramipexole Dihydrochloride (Mirapex) 0.125 mg PO HS [facility] Last Admin: 12/15/17 20:58 Dose: 0.125 mg Pravastatin Sodium (Pravachol) 20 mg PO QHS [facility] Last Admin: 12/15/17 22:24 Dose: 20 mg Senna/Docusate Sodium (Senokot-S, Amelie-Colace) 2 tablet PO BID [facility] Last Admin: 12/16/17 07:45 Dose: 2 tablet Tamsulosin HCl (Flomax) 0.4 mg PO DINNER [facility] Last Admin: 12/15/17 17:05 Dose: 0.4 mg Medical Necessity - Tobacco Use Smoking Status: Never smoker Tobacco Use: Non-smoker Assessment/Plan debility due to 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 D/Cd the ASA and daily INRs
[2017-12-16] MEDS: Tamsulosin HCl 0.4 MG Capsule PO (16:43)
[2017-12-16 19:30] VITALS: BP 134/63; PULSE 57; RESP 18; TEMP 36.5; O2SAT 98; BMI 29.7
[2017-12-16] MEDS: Pramipexole Di-HCl 0.125 MG Tablet PO (19:56)
[2017-12-16] MEDS: PARoxetine 10 MG Tablet 40 MG PO (19:56)
[2017-12-16] MEDS: Pravastatin 20 MG Tablet PO (19:57)
[2017-12-16 20:11] LABS: Bedside Glucose 159 mg/dL (70-110)
--- NOTE | 2017-12-17 01:26 | NURSING ---
REVIEWED AND AGREE WITH PILOT SUBMERSIBLE'S FIM AND HANDOFF CHARTING.
[2017-12-17] MEDS: Acetaminophen 325 MG Tablet 650 MG PO (06:02)
[2017-12-17 07:11] LABS: Bedside Glucose 140 mg/dL (70-110)
[2017-12-17 07:44] VITALS: BP 138/68; PULSE 64; RESP 16; TEMP 36.4; O2SAT 94
[2017-12-17] MEDS: Magnesium Oxide 400 MG Tablet PO (07:56)
[2017-12-17] MEDS: Carvedilol 6.25 MG Tablet PO ×2 (07:56→20:03)
[2017-12-17] MEDS: APIXABAN 5 MG TABLET PO ×2 (07:56→20:04)
[2017-12-17] MEDS: Isosorbide Mononitrate 20 MG Tablet 10 MG PO ×2 (07:56→20:03)
[2017-12-17] MEDS: Allopurinol 300 MG Tablet PO (07:56)
[2017-12-17] MEDS: Lisinopril 5 MG Tablet PO (07:56)
[2017-12-17 09:31] VITALS: BMI 29.7
[2017-12-17 11:21] LABS: Bedside Glucose 122 mg/dL (70-110)
[2017-12-17] MEDS: Lidocaine 5% Patch 1 PATCH TOPICAL (11:40)
--- NOTE | 2017-12-17 14:14 | PCM.PN.NEU ---
Subjective: Patient seen and examined. No acute events overnight.Tolerating therapy. Denies any shortness of breath or chest. No issues with GI/. - Physical Exam General: Alert, Oriented x3, Cooperative HEENT: Atraumatic, PERRLA, EOMI, Normocephalic Neck: Supple, No JVD, Negative Carotid Bruits Lungs: Clear to auscultation, Normal air movement Cardiovascular: Regular rate, No murmurs Abdomen: Bowel Sounds Present, Soft, Non Tender Extremities: No edema, Capillary Refill Less than 3 Seconds Skin: No rashes, No breakdown Musculoskeletal: No Tenderness to Palpation of Joints or Extremities Neurological: Cranial nerves II-XII grossly intact Psych/Mental Status: Normal Affect, Appropriate Vital Signs Temp Pulse Resp BP Pulse Ox 97.5 F L 64 16 138/68 H 94 12/17/17 07:44 12/17/17 07:44 12/17/17 07:44 12/17/17 07:44 12/17/17 07:44 Oxygen Delivery Method Room Air Weight: 98.792 kg Body Mass Index (BMI) 29.7 Finger Stick Blood Glucose 87 Orthostatic Vital Signs Start: 12/09/17 12:18 Freq: Status: Active Protocol: Activity Type Activity Date Activity User E-Sign Co-Sign Detail Recorded Client Recorded Date Recorded By Document 12/09/17 12:18 MAINTENANCE SUPERVISOR MECHANICAL [id number] 12/09/17 12:21 MAINTENANCE SUPERVISOR MECHANICAL 12/09/17 12:18 Orthostatic Vitals Standing -Blood Pressure (90/60-120/80) 140/70 H -Extremity Use Right Arm -Pulse Rate (60-100) 83 Sitting -Blood Pressure (90/60-120/80) 125/80 H -Extremity Use Right Arm -Pulse Rate (60-100) 61 Lying -Blood Pressure (90/60-120/80) 156/92 H -Extremity Use Right Arm -Pulse Rate (60-100) 71 Intake and Output for Last 24 Hours 12/15/17 12/16/17 12/17/17 23:59 23:59 23:59 Intake Total 1979 75 / 75 340 / 340 Output Total 50 / 50 125 / 125 Balance 1979 25 / 25 215 / 215 POC Glucose 12/17/17 12/17/17 12/16/17 11:15 06:52 19:58 POC Glucose 122 H 140 H 159 H 12/16/17 16:33 POC Glucose 134 H Active Medications Acetaminophen (Tylenol) 650 mg PO Q6H PRN PRN PRN Reason: Mild Pain (0-3/10)/Headache Last Admin: 12/17/17 06:02 Dose: 650 mg Al Hydroxide/Mg Hydroxide (Mylanta Ii) 30 ml PO Q6H PRN PRN PRN Reason: Gastric Burning Allopurinol (Zyloprim) 300 mg PO DAILY [facility] Last Admin: 12/17/17 07:56 Dose: 300 mg Apixaban (Eliquis) 5 mg PO BID [facility] Last Admin: 12/17/17 07:56 Dose: 5 mg Bisacodyl (Dulcolax) 10 mg RECTAL .PRN X 1 PRN PRN Reason: Constipation Carvedilol (Coreg) 6.25 mg PO BID [facility] Last Admin: 12/17/17 07:56 Dose: 6.25 mg Dextrose (D50w Syringe) 0 gm IV X1 PRN; Protocol PRN Reason: Hypoglycemia Famotidine (Pepcid) 20 mg PO BID PRN PRN Reason: DYSPEPSIA Glucagon () 1 mg IM .X1 PRN PRN Reason: Hypoglycemia Insulin Aspart (Novolog Flexpen (Bkc)) 0 units SC ACHS [facility] PRN Reason: Protocol Last Admin: 12/17/17 16:33 Dose: Not Given Isosorbide Mononitrate (Monoket) 10 mg PO BID [facility] Last Admin: 12/17/17 07:56 Dose: 10 mg Lidocaine (Lidoderm Patch) 1 patch TOPICAL DAILY [facility] PRN Reason: Protocol Last Admin: 12/17/17 11:40 Dose: 1 patch Lisinopril (Zestril) 5 mg PO DAILY [facility] Last Admin: 12/17/17 07:56 Dose: 5 mg Magnesium Hydroxide (Milk Of Magnesia) 30 ml PO .PRN X 1 PRN PRN Reason: Constipation Last Admin: 12/08/17 08:40 Dose: 30 ml [facility] Last Admin: 12/17/17 07:56 Dose: 400 mg [facility] Last Admin: 12/17/17 16:38 Dose: 500 mg Paroxetine HCl (Paxil) 40 mg PO QHS [facility] Last Admin: 12/16/17 19:56 Dose: 40 mg Pramipexole Dihydrochloride (Mirapex) 0.125 mg PO HS [facility] Last Admin: 12/16/17 19:56 Dose: 0.125 mg Pravastatin Sodium (Pravachol) 20 mg PO QHS [facility] Last Admin: 12/16/17 19:57 Dose: 20 mg Senna/Docusate Sodium (Senokot-S, Amelie-Colace) 2 tablet PO BID [facility] Last Admin: 12/17/17 07:57 Dose: Not Given Tamsulosin HCl (Flomax) 0.4 mg PO DINNER [facility] Last Admin: 12/17/17 16:38 Dose: 0.4 mg Medical Necessity - Tobacco Use Smoking Status: Never smoker Tobacco Use: Non-smoker Assessment/Plan debility due to chronic left mca infarct with acute decompensation, admitted to rehab unit with goal of restoring prior level of functional independence - Pt for gait and balance - Ot for adls - PRN analgesics - Afib: started Eliquis 5mg BID today, INR is now at 1.6 - Bowel protocol - Speech therapy - DVT prophylaxis: Saul SCDs - Orthostatic bps Lying down 156/92, sitting 125/80, and standing was 140/70 - Restless legs start Requip 0.25mg at HS - Started Eliquis 5mg BID, INR was 1.6, today. D/Cd the ASA and daily INRs
[2017-12-17 16:26] LABS: Bedside Glucose 146 mg/dL (70-110)
[2017-12-17] MEDS: Tamsulosin HCl 0.4 MG Capsule PO (16:38)
[2017-12-17 20:00] VITALS: BP 134/84; PULSE 61; RESP 18; TEMP 36.7; O2SAT 96; BMI 29.7
[2017-12-17] MEDS: PARoxetine 10 MG Tablet 40 MG PO (20:03)
[2017-12-17] MEDS: Pravastatin 20 MG Tablet PO (20:03)
[2017-12-17] MEDS: Senna/Docusate Sodium 1 Tablet 2 TABLET PO (20:03)
[2017-12-17] MEDS: Pramipexole Di-HCl 0.125 MG Tablet PO (20:03)
[2017-12-17 21:55] LABS: Bedside Glucose 159 mg/dL (70-110)
--- NOTE | 2017-12-18 00:16 | NURSING ---
Reviewed and agree with VOICE STUDIES DIRECTOR documentation and FIMS charting.
[2017-12-18 07:11] LABS: Bedside Glucose 152 mg/dL (70-110)
[2017-12-18 07:41] VITALS: BP 140/69; PULSE 77; RESP 16; TEMP 36.7; O2SAT 96
[2017-12-18] MEDS: Allopurinol 300 MG Tablet PO (07:46)
[2017-12-18] MEDS: Magnesium Oxide 400 MG Tablet PO (07:47)
[2017-12-18] MEDS: Isosorbide Mononitrate 20 MG Tablet 10 MG PO ×2 (07:47→21:36)
[2017-12-18] MEDS: Senna/Docusate Sodium 1 Tablet 2 TABLET PO (07:47)
[2017-12-18] MEDS: Lisinopril 5 MG Tablet PO (07:47)
[2017-12-18] MEDS: Acetaminophen 325 MG Tablet 650 MG PO ×2 (07:48→16:51)
[2017-12-18] MEDS: APIXABAN 5 MG TABLET PO ×2 (07:48→21:35)
[2017-12-18] MEDS: Carvedilol 6.25 MG Tablet PO ×2 (07:49→21:35)
[2017-12-18 08:45] VITALS: BMI 29.7
[2017-12-18] MEDS: Lidocaine 5% Patch 1 PATCH TOPICAL (08:51)
--- NOTE | 2017-12-18 10:22 | PCM.PN.NEU ---
Subjective: Patient seen and examined. No acute event over night. Tolerating therapy. Denies any shortness of breath, or chest pains. No issues with GI/. He wants to go home, but knows this is the best place for him. - Physical Exam General: Alert, Oriented x3, Cooperative HEENT: Atraumatic, PERRLA, EOMI, Normocephalic Neck: Supple, No JVD, Negative Carotid Bruits Lungs: Clear to auscultation, Normal air movement Cardiovascular: Regular rate, No murmurs Abdomen: Bowel Sounds Present, Soft, Non Tender Extremities: No edema, Capillary Refill Less than 3 Seconds Skin: No rashes, No breakdown Musculoskeletal: No Tenderness to Palpation of Joints or Extremities Neurological: Cranial nerves II-XII grossly intact Psych/Mental Status: Normal Affect, Appropriate Vital Signs Temp Pulse Resp BP Pulse Ox 98.1 F 77 16 140/69 H 96 12/18/17 07:41 12/18/17 07:41 12/18/17 07:41 12/18/17 07:41 12/18/17 07:41 Oxygen Delivery Method Room Air Weight: 98.792 kg Body Mass Index (BMI) 29.7 Finger Stick Blood Glucose 87 Orthostatic Vital Signs Start: 12/09/17 12:18 Freq: Status: Active Protocol: Activity Type Activity Date Activity User E-Sign Co-Sign Detail Recorded Client Recorded Date Recorded By Document 12/09/17 12:18 OIL PROGRAM COMPLIANCE SPECIALIST [id number] 12/09/17 12:21 OIL PROGRAM COMPLIANCE SPECIALIST 12/09/17 12:18 Orthostatic Vitals Standing -Blood Pressure (90/60-120/80) 140/70 H -Extremity Use Right Arm -Pulse Rate (60-100) 83 Sitting -Blood Pressure (90/60-120/80) 125/80 H -Extremity Use Right Arm -Pulse Rate (60-100) 61 Lying -Blood Pressure (90/60-120/80) 156/92 H -Extremity Use Right Arm -Pulse Rate (60-100) 71 Intake and Output for Last 24 Hours 12/16/17 12/17/17 12/18/17 23:59 23:59 23:59 Intake Total 75 / 75 655 / 655 Output Total 50 / 50 125 / 125 Balance 25 / 25 530 / 530 POC Glucose 12/18/17 12/17/17 12/17/17 07:05 20:09 16:22 POC Glucose 152 H 159 H 146 H 12/17/17 11:15 POC Glucose 122 H Active Medications Acetaminophen (Tylenol) 650 mg PO Q6H PRN PRN PRN Reason: Mild Pain (0-3/10)/Headache Last Admin: 12/18/17 07:48 Dose: 650 mg Al Hydroxide/Mg Hydroxide (Mylanta Ii) 30 ml PO Q6H PRN PRN PRN Reason: Gastric Burning Allopurinol (Zyloprim) 300 mg PO DAILY [facility] Last Admin: 12/18/17 07:46 Dose: 300 mg Apixaban (Eliquis) 5 mg PO BID [facility] Last Admin: 12/18/17 07:48 Dose: 5 mg Bisacodyl (Dulcolax) 10 mg RECTAL .PRN X 1 PRN PRN Reason: Constipation Carvedilol (Coreg) 6.25 mg PO BID [facility] Last Admin: 12/18/17 07:49 Dose: 6.25 mg Dextrose (D50w Syringe) 0 gm IV X1 PRN; Protocol PRN Reason: Hypoglycemia Famotidine (Pepcid) 20 mg PO BID PRN PRN Reason: DYSPEPSIA Glucagon () 1 mg IM .X1 PRN PRN Reason: Hypoglycemia Insulin Aspart (Novolog Flexpen (Bkc)) 0 units SC [facility] PRN Reason: Protocol Last Admin: 12/18/17 07:46 Dose: 2 u Isosorbide Mononitrate (Monoket) 10 mg PO BID [facility] Last Admin: 12/18/17 07:47 Dose: 10 mg Lidocaine (Lidoderm Patch) 1 patch TOPICAL DAILY [facility] PRN Reason: Protocol Last Admin: 12/18/17 08:51 Dose: 1 patch Lisinopril (Zestril) 5 mg PO DAILY [facility] Last Admin: 12/18/17 07:47 Dose: 5 mg Magnesium Hydroxide (Milk Of Magnesia) 30 ml PO .PRN X 1 PRN PRN Reason: Constipation Last Admin: 12/08/17 08:40 Dose: 30 ml Magnesium Oxide (Mag-Ox 400) [facility] Last Admin: 12/18/17 07:47 Dose: 400 mg Metformin HCl (Glucophage) [facility] Last Admin: 12/18/17 07:46 Dose: 500 mg Paroxetine HCl (Paxil) 40 mg PO QHS [facility] Last Admin: 12/17/17 20:03 Dose: 40 mg Pramipexole Dihydrochloride (Mirapex) 0.125 mg PO HS [facility] Last Admin: 12/17/17 20:03 Dose: 0.125 mg Pravastatin Sodium (Pravachol) 20 mg PO QHS [facility] Last Admin: 12/17/17 20:03 Dose: 20 mg Senna/Docusate Sodium (Senokot-S, Amelie-Colace) 2 tablet PO BID [facility] Last Admin: 12/18/17 07:47 Dose: 2 tablet Tamsulosin HCl (Flomax) 0.4 mg PO DINNER [facility] Last Admin: 12/17/17 16:38 Dose: 0.4 mg Medical Necessity - Tobacco Use Smoking Status: Never smoker Tobacco Use: Non-smoker Assessment/Plan debility due to 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 D/Cd the ASA and daily INRs
--- NOTE | 2017-12-18 10:40 | PN.NEURO_ITS ---
Subjective: Patient seen and examined. No acute event over night. Tolerating therapy. Denies any shortness of breath, or chest pains. No issues with GI/. He wants to go home, but knows this is the best place for him. - Physical Exam General: Alert, Oriented x3, Cooperative HEENT: Atraumatic, PERRLA, EOMI, Normocephalic Neck: Supple, No JVD, Negative Carotid Bruits Lungs: Clear to auscultation, Normal air movement Cardiovascular: Regular rate, No murmurs Abdomen: Bowel Sounds Present, Soft, Non Tender Extremities: No edema, Capillary Refill Less than 3 Seconds Skin: No rashes, No breakdown Musculoskeletal: No Tenderness to Palpation of Joints or Extremities Neurological: Cranial nerves II-XII grossly intact Psych/Mental Status: Normal Affect, Appropriate Vital Signs Temp Pulse Resp BP Pulse Ox 98.1 F 77 16 140/69 H 96 12/18/17 07:41 12/18/17 07:41 12/18/17 07:41 12/18/17 07:41 12/18/17 07:41 Oxygen Delivery Method Room Air Weight: 98.792 kg Body Mass Index (BMI) 29.7 Finger Stick Blood Glucose 87 Orthostatic Vital Signs Start: 12/09/17 12:18 Freq: Status: Active Protocol: Activity Type Activity Date Activity User E-Sign Co-Sign Detail Recorded Client Recorded Date Recorded By Document 12/09/17 12:18 BUSINESS ANALYSIS SPECIALIST [id number] 12/09/17 12:21 BUSINESS ANALYSIS SPECIALIST 12/09/17 12:18 Orthostatic Vitals Standing -Blood Pressure (90/60-120/80) 140/70 H -Extremity Use Right Arm -Pulse Rate (60-100) 83 Sitting -Blood Pressure (90/60-120/80) 125/80 H -Extremity Use Right Arm -Pulse Rate (60-100) 61 Lying -Blood Pressure (90/60-120/80) 156/92 H -Extremity Use Right Arm -Pulse Rate (60-100) 71 Intake and Output for Last 24 Hours 12/16/17 12/17/17 12/18/17 23:59 23:59 23:59 Intake Total 75 / 75 655 / 655 Output Total 50 / 50 125 / 125 Balance 25 / 25 530 / 530 POC Glucose 12/18/17 12/17/17 12/17/17 07:05 20:09 16:22 POC Glucose 152 H 159 H 146 H 12/17/17 11:15 POC Glucose 122 H Active Medications Acetaminophen (Tylenol) 650 mg PO Q6H PRN PRN PRN Reason: Mild Pain (0-3/10)/Headache Last Admin: 12/18/17 07:48 Dose: 650 mg Al Hydroxide/Mg Hydroxide (Mylanta Ii) 30 ml PO Q6H PRN PRN PRN Reason: Gastric Burning Allopurinol (Zyloprim) 300 mg PO DAILY [facility] Last Admin: 12/18/17 07:46 Dose: 300 mg Apixaban (Eliquis) 5 mg PO BID [facility] Last Admin: 12/18/17 07:48 Dose: 5 mg Bisacodyl (Dulcolax) 10 mg RECTAL .PRN X 1 PRN PRN Reason: Constipation Carvedilol (Coreg) 6.25 mg PO BID [facility] Last Admin: 12/18/17 07:49 Dose: 6.25 mg Dextrose (D50w Syringe) 0 gm IV X1 PRN; Protocol PRN Reason: Hypoglycemia Famotidine (Pepcid) 20 mg PO BID PRN PRN Reason: DYSPEPSIA Glucagon () 1 mg IM .X1 PRN PRN Reason: Hypoglycemia Insulin Aspart (Novolog Flexpen (Bkc)) 0 units SC [facility] PRN Reason: Protocol Last Admin: 12/18/17 07:46 Dose: 2 u Isosorbide Mononitrate (Monoket) 10 mg PO BID [facility] Last Admin: 12/18/17 07:47 Dose: 10 mg Lidocaine (Lidoderm Patch) 1 patch TOPICAL DAILY [facility] PRN Reason: Protocol Last Admin: 12/18/17 08:51 Dose: 1 patch Lisinopril (Zestril) 5 mg PO DAILY [facility] Last Admin: 12/18/17 07:47 Dose: 5 mg Magnesium Hydroxide (Milk Of Magnesia) 30 ml PO .PRN X 1 PRN PRN Reason: Constipation Last Admin: 12/08/17 08:40 Dose: 30 ml [facility] Last Admin: 12/18/17 07:47 Dose: 400 mg [facility] Last Admin: 12/18/17 07:46 Dose: 500 mg Paroxetine HCl (Paxil) 40 mg PO QHS [facility] Last Admin: 12/17/17 20:03 Dose: 40 mg Pramipexole Dihydrochloride (Mirapex) 0.125 mg PO HS [facility] Last Admin: 12/17/17 20:03 Dose: 0.125 mg Pravastatin Sodium (Pravachol) 20 mg PO QHS [facility] Last Admin: 12/17/17 20:03 Dose: 20 mg Senna/Docusate Sodium (Senokot-S, Amelie-Colace) 2 tablet PO BID [facility] Last Admin: 12/18/17 07:47 Dose: 2 tablet Tamsulosin HCl (Flomax) 0.4 mg PO DINNER [facility] Last Admin: 12/17/17 16:38 Dose: 0.4 mg Medical Necessity - Tobacco Use Smoking Status: Never smoker Tobacco Use: Non-smoker Assessment/Plan debility due to 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 D/Cd the ASA and daily INRs
[2017-12-18 14:26] LABS: Bedside Glucose 124 mg/dL (70-110)
[2017-12-18] MEDS: Tamsulosin HCl 0.4 MG Capsule PO (16:50)
[2017-12-18 16:56] LABS: Bedside Glucose 113 mg/dL (70-110)
[2017-12-18 21:20] VITALS: BMI 29.7
[2017-12-18 21:29] VITALS: BP 133/63; PULSE 60; RESP 17; TEMP 36.5; O2SAT 94
[2017-12-18] MEDS: PARoxetine 10 MG Tablet 40 MG PO (21:35)
[2017-12-18] MEDS: Pravastatin 20 MG Tablet PO (21:35)
[2017-12-18] MEDS: Pramipexole Di-HCl 0.125 MG Tablet PO (21:35)
[2017-12-18 21:51] LABS: Bedside Glucose 129 mg/dL (70-110)
[2017-12-19 06:46] LABS: Bedside Glucose 140 mg/dL (70-110)
[2017-12-19] MEDS: Acetaminophen 325 MG Tablet 650 MG PO ×2 (06:53→16:43)
[2017-12-19 07:38] VITALS: BP 121/54; PULSE 77; RESP 16; TEMP 36.6; O2SAT 97
[2017-12-19] MEDS: Lisinopril 5 MG Tablet PO (10:12)
[2017-12-19] MEDS: Magnesium Oxide 400 MG Tablet PO (10:12)
[2017-12-19] MEDS: APIXABAN 5 MG TABLET PO ×2 (10:12→22:01)
[2017-12-19] MEDS: Isosorbide Mononitrate 20 MG Tablet 10 MG PO ×2 (10:12→22:01)
[2017-12-19] MEDS: Lidocaine 5% Patch 1 PATCH TOPICAL (10:13)
[2017-12-19] MEDS: Carvedilol 6.25 MG Tablet PO ×2 (10:13→22:01)
[2017-12-19] MEDS: Allopurinol 300 MG Tablet PO (10:14)
[2017-12-19 11:40] LABS: Bedside Glucose 96 mg/dL (70-110)
--- NOTE | 2017-12-19 11:45 | CASEMGMT ---
Team meeting held. Patient present as well as patient spouse and patient daughter. Patient requesting for discharge date to be set for 12/21/17. Team is agreeable to discharge date. Physical and Occupational therapy as well as a home health aide are recommending for patient to continue with services at time of discharge. Patient is agreeable to recommendation and requesting for home health services to be set up through [facility] ([facility]). Patient also voicing a need for a walker. Patient has no preference of [employer], [employer] to be utilized. Patient family to provide transportation home for patient at time of discharge. Support given[facility] made for physical and Occupational therapy as well as a home health aide. Orders faxed. Faxed order for walker to [employer] to deliver walker to patient room prior to discharge. Proposed discharge date: 12/21/17 PLAN: Discharge home with spouse and home health services. Tia ARROYO, TECHNICAL ENGINEER
--- NOTE | 2017-12-19 12:40 | PN.NEURO_ITS ---
Subjective: Staffed in team meeting. Family at bedside. Questions answered. With Physical therapy with bed mobility he requires minimal assistance to get to the side of the bed. Once sitting on the side he is standby assist to go from a sitting position to a standing position and requires an occasional light hand to pivot. He is able to ambulate about 100 to 150 feet with a walker at stand by assist. The plan is to continue working on walking up and down stairs and around obstacles in the community, he is doing better but still requires a light hand for balance. With Occupational therapy his pad cutter strength is stronger on his left then his right by 10lbs. He is minimal assist for personal care. With Speech therapy, he is back to baseline per the patient and the family, he has been instructed to keep working on says the words slowly and annunciating each syllable. Speaking more slowly and taking large words and breaking them into small segments before saying them. He was given range of motion, and strengthen exercises for the muscles used for speech. With nursing not issues. Will be discharged on Saturday home with family, will do family teaching on Saturday to help with any concerns and to help identify any problems. Will be diacharged home with Physical therapy and Occupational therapy, and a home health aide. - Physical Exam General: Alert, Oriented x3, Cooperative HEENT: Atraumatic, PERRLA, EOMI, Normocephalic Neck: Supple, No JVD, Negative Carotid Bruits Lungs: Clear to auscultation, Normal air movement Cardiovascular: Regular rate, No murmurs Abdomen: Bowel Sounds Present, Soft, Non Tender Extremities: No edema, Capillary Refill Less than 3 Seconds Skin: No rashes, No breakdown Musculoskeletal: No Tenderness to Palpation of Joints or Extremities Neurological: Cranial nerves II-XII grossly intact Psych/Mental Status: Normal Affect, Appropriate, Alert and oriented to time, place, person, mood and affect Vital Signs Temp Pulse Resp BP Pulse Ox 98 F 77 16 121/54 H 97 12/19/17 07:38 12/19/17 07:38 12/19/17 07:38 12/19/17 07:38 12/19/17 07:38 Oxygen Delivery Method Room Air Weight: 100 kg Body Mass Index (BMI) 29.7 Finger Stick Blood Glucose 87 Orthostatic Vital Signs Start: 12/09/17 12:18 Freq: Status: Active Protocol: Activity Type Activity Date Activity User E-Sign Co-Sign Detail Recorded Client Recorded Date Recorded By Document 12/09/17 12:18 COMMUNICATIONS ATTENDANT [id number] 12/09/17 12:21 COMMUNICATIONS ATTENDANT 12/09/17 12:18 Orthostatic Vitals Standing -Blood Pressure (90/60-120/80) 140/70 H -Extremity Use Right Arm -Pulse Rate (60-100) 83 Sitting -Blood Pressure (90/60-120/80) 125/80 H -Extremity Use Right Arm -Pulse Rate (60-100) 61 Lying -Blood Pressure (90/60-120/80) 156/92 H -Extremity Use Right Arm -Pulse Rate (60-100) 71 Intake and Output for Last 24 Hours 12/17/17 12/18/17 12/19/17 23:59 23:59 23:59 Intake Total 655 / 655 360 / 360 120 / 120 Output Total 125 / 125 250 / 250 250 / 250 Balance 530 / 530 110 / 110 -130 / -130 POC Glucose 12/19/17 12/19/17 12/18/17 11:36 06:42 21:34 POC Glucose 96 140 H 129 H 12/18/17 12/18/17 16:47 11:56 POC Glucose 113 H 124 H Active Medications Acetaminophen (Tylenol) 650 mg PO Q6H PRN PRN PRN Reason: Mild Pain (0-3/10)/Headache Last Admin: 12/19/17 06:53 Dose: 650 mg Al Hydroxide/Mg Hydroxide (Mylanta Ii) 30 ml PO Q6H PRN PRN PRN Reason: Gastric Burning Allopurinol (Zyloprim) 300 mg PO DAILY [facility] Last Admin: 12/19/17 10:14 Dose: 300 mg Apixaban (Eliquis) 5 mg PO BID [facility] Last Admin: 12/19/17 10:12 Dose: 5 mg Bisacodyl (Dulcolax) 10 mg RECTAL .PRN X 1 PRN PRN Reason: Constipation Carvedilol (Coreg) 6.25 mg PO BID [facility] Last Admin: 12/19/17 10:13 Dose: 6.25 mg Dextrose (D50w Syringe) 0 gm IV X1 PRN; Protocol PRN Reason: Hypoglycemia Famotidine (Pepcid) 20 mg PO BID PRN PRN Reason: DYSPEPSIA Glucagon () 1 mg IM .X1 PRN PRN Reason: Hypoglycemia Insulin Aspart (Novolog Flexpen (Bkc)) 0 units SC ACHS PENNY PRN Reason: Protocol Last Admin: 12/19/17 11:42 Dose: Not Given Isosorbide Mononitrate (Monoket) 10 mg PO BID [facility] Last Admin: 12/19/17 10:12 Dose: 10 mg Lidocaine (Lidoderm Patch) 1 patch TOPICAL DAILY PENNY PRN Reason: Protocol Last Admin: 12/19/17 10:13 Dose: 1 patch Lisinopril (Zestril) 5 mg PO DAILY [facility] Last Admin: 12/19/17 10:12 Dose: 5 mg Magnesium Hydroxide (Milk Of Magnesia) 30 ml PO .PRN X 1 PRN PRN Reason: Constipation Last Admin: 12/08/17 08:40 Dose: 30 ml [facility]esium Oxide (Mag-Ox 400) [facility] Last Admin: 12/19/17 10:12 Dose: 400 mg Metformin HCl (Glucophage) [facility] Last Admin: 12/19/17 10:12 Dose: 500 mg Paroxetine HCl (Paxil) 40 mg PO QHS [facility] Last Admin: 12/18/17 21:35 Dose: 40 mg Pramipexole Dihydrochloride (Mirapex) 0.125 mg PO HS [facility] Last Admin: 12/18/17 21:35 Dose: 0.125 mg Pravastatin Sodium (Pravachol) 20 mg PO QHS [facility] Last Admin: 12/18/17 21:35 Dose: 20 mg Senna/Docusate Sodium (Senokot-S, Amelie-Colace) 2 tablet PO BID [facility] Last Admin: 12/19/17 10:13 Dose: Not Given Tamsulosin HCl (Flomax) 0.4 mg PO DINNER [facility] Last Admin: 12/18/17 16:50 Dose: 0.4 mg Medical Necessity - Tobacco Use Smoking Status: Never smoker Tobacco Use: Non-smoker Assessment/Plan debility due to 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 D/Cd the ASA and daily INRs - Plan to discharge home on Saturday, with home PT/OT and home health aide - Family teaching this Saturday
[2017-12-19 16:07] VITALS: BMI 29.7
[2017-12-19] MEDS: Tamsulosin HCl 0.4 MG Capsule PO (16:42)
[2017-12-19 16:51] LABS: Bedside Glucose 132 mg/dL (70-110)
[2017-12-19 22:00] VITALS: BP 132/56; PULSE 68; RESP 16; TEMP 36.7; O2SAT 97
[2017-12-19] MEDS: Pramipexole Di-HCl 0.125 MG Tablet PO (22:01)
[2017-12-19] MEDS: PARoxetine 10 MG Tablet 40 MG PO (22:02)
[2017-12-19] MEDS: Pravastatin 20 MG Tablet PO (22:03)
[2017-12-19 22:15] LABS: Bedside Glucose 129 mg/dL (70-110)
[2017-12-20 03:14] VITALS: BMI 29.7
--- NOTE | 2017-12-20 04:23 | NURSING ---
Reviewed and agree with ROAD PRODUCTION GENERAL MANAGER documentation & FIMS charting.
[2017-12-20 06:46] LABS: Bedside Glucose 129 mg/dL (70-110)
[2017-12-20] MEDS: APIXABAN 5 MG TABLET PO ×2 (07:31→22:01)
[2017-12-20] MEDS: Magnesium Oxide 400 MG Tablet PO (07:31)
[2017-12-20] MEDS: Acetaminophen 325 MG Tablet 650 MG PO (07:33)
[2017-12-20 08:03] VITALS: BP 121/54; PULSE 65; RESP 17; TEMP 36.4; O2SAT 98
[2017-12-20] MEDS: Lidocaine 5% Patch 1 PATCH TOPICAL (10:58)
[2017-12-20] MEDS: Lisinopril 5 MG Tablet PO (10:58)
[2017-12-20] MEDS: Senna/Docusate Sodium 1 Tablet 2 TABLET PO ×2 (10:58→22:01)
[2017-12-20] MEDS: Carvedilol 6.25 MG Tablet PO ×2 (10:58→22:01)
[2017-12-20] MEDS: Isosorbide Mononitrate 20 MG Tablet 10 MG PO ×2 (10:58→21:59)
[2017-12-20] MEDS: Allopurinol 300 MG Tablet PO (10:59)
[2017-12-20 12:05] LABS: Bedside Glucose 80 mg/dL (70-110)
[2017-12-20 12:46] VITALS: BMI 29.7
--- NOTE | 2017-12-20 16:16 | PCM.RU.DC ---
Rehab Discharge Summary DATE OF ADMISSION: 12/07/17 DATE OF DISCHARGE: 12/21/17 - Rehab Diagnosis CVA Discharge Diet: 1999 Calorie Control Diet, 2000 mg Sodium Diet Discharge Activity: May Not Drive, May Shower, May Take a Tub Bath, Use Walker Weight Bearing Status: Weight bearing as tolerated Call your doctor if you observe: Fever of 101 or Higher, Coldness, Increased Pain, Numbness or Tingling, Change in Color, Inability to urinate, Inability to have a bowel movement, Using more than one pad per hour, Shortness of breath, Dizziness, Fainting spells, Swelling in the ankles, Chest pain, Prolonged hiccoughing, Increased palpitations (irregular heartbeat), Calf discomfort, Uncontrolled pain Home Medications: Medications to take at Discharge Allopurinol 300 mg PO DAILY 12/05/17 Carvedilol 6.25 mg PO BID 12/05/17 Lisinopril [Zestril] 5 mg PO DAILY 12/05/17 Paroxetine [Paxil] 40 mg PO QHS 12/05/17 Pravastatin [Pravachol] 20 mg PO QHS 12/05/17 Tamsulosin HCl [Flomax] 0.4 mg PO DINNER 12/05/17 Famotidine [Pepcid] 20 mg PO BID PRN tablet 12/07/17 Magnesium Oxide [Mag-Ox 400] 400 mg PO DAILYCM 12/07/17 Metformin HCl 500 mg PO BID #1 12/07/17 Acetaminophen [Tylenol Tablet] 650 mg PO Q6H PRN PRN tablet 12/19/17 Apixaban [Eliquis] 5 mg PO BID #60 tab 12/19/17 Isosorbide Mononitrate [Monoket] 10 mg PO BID tablet 12/19/17 Lidocaine [Lidoderm Patch] 1 patch TOPICAL DAILY #30 patch 12/19/17 Pramipexole Di-HCl [Mirapex] 0.125 mg PO HS #30 tab 12/19/17 Following Prescrptions Were Given to Patient: Lidocaine [Lidoderm Patch] 1 patch TOPICAL DAILY #30 patch Pramipexole Di-HCl [Mirapex] 0.125 mg PO HS #30 tab Apixaban [Eliquis] 5 mg PO BID #60 tab Primary Care Physician: Marisela Jensen [Primary Care Provider] - Please Follow Up With: Dr. Marisela Jensen Please Follow Up With: Daysi Arriola, KIMI When: January 17, @ 2:00 PM Disposition: Home with Home Health Minutes spent on discharge:: 40 Patient Condition:: Good Rehab Course The patient is a 76 year old right handed male with history of left MCA infarct, lives at home independent with . reports since he has had increasing difficulty starting with difficulty getting out of bed and increased right sided weakness which has slowly improved. also reports his language is worse since . on Coumadin for AFib, INR subtherapeutic upon presentation, pt reports good compliance with meds. 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 workup in the hospital was negative for acute stroke by MRI, and EEG did not show epileptiform changes. no other cause of his debility was immediately clear. he has ongoing debility due to his chronic stroke as well as his acute decompensation and is therefore admitted to the rehab unit for therapy in order with restore his previous level of functional independence. With Physical therapy with bed mobility he requires minimal assistance to get to the side of the bed. Once sitting on the side he is standby assist to go from a sitting position to a standing position and requires an occasional light hand to pivot. He is able to ambulate about 100 to 150 feet with a walker at stand by assist. The plan is to continue working on walking up and down stairs and around obstacles in the community, he is doing better but still requires a light hand for balance. With Occupational therapy his development engineer strength is stronger on his left then his right by 10lbs. He is minimal assist for personal care. With Speech therapy, he is back to baseline per the patient and the family, he has been instructed to keep working on says the words slowly and annunciating each syllable. Speaking more slowly and taking large words and breaking them into small segments before saying them. He was given range of motion, and strengthen exercises for the muscles used for speech. With nursing not issues. Will be discharged on Saturday home with family, will do family teaching on Saturday to help with any concerns and to help identify any problems. Will be discharged home with Physical therapy and Occupational therapy, and a home health aide. Meaningful Use Info Meaningful Use Diagnoses (Choose all that apply): None applicable - CVA Therapy Assessed for PT,OT and/or ST?: Yes - Ischemic Stroke Antithrombotic order at d/c?: Yes Dx of Atrial fib/flutter?: Yes Anticoagulant at discharge?: Yes Statins at discharge?: Yes
--- NOTE | 2017-12-20 16:20 | DS.PCM_ITS ---
Rehab Discharge Summary DATE OF ADMISSION: 12/07/17 DATE OF DISCHARGE: 12/21/17 - Rehab Diagnosis CVA Discharge Diet: 1999 Calorie Control Diet, 2000 mg Sodium Diet Discharge Activity: May Not Drive, May Shower, May Take a Tub Bath, Use Walker Weight Bearing Status: Weight bearing as tolerated Call your doctor if you observe: Fever of 101 or Higher, Coldness, Increased Pain, Numbness or Tingling, Change in Color, Inability to urinate, Inability to have a bowel movement, Using more than one pad per hour, Shortness of breath, Dizziness, Fainting spells, Swelling in the ankles, Chest pain, Prolonged hiccoughing, Increased palpitations (irregular heartbeat), Calf discomfort, Uncontrolled pain Home Medications: Medications to take at Discharge Allopurinol 300 mg PO DAILY 12/05/17 Carvedilol 6.25 mg PO BID 12/05/17 Lisinopril [Zestril] 5 mg PO DAILY 12/05/17 Paroxetine [Paxil] 40 mg PO QHS 12/05/17 Pravastatin [Pravachol] 20 mg PO QHS 12/05/17 Tamsulosin HCl [Flomax] 0.4 mg PO DINNER 12/05/17 Famotidine [Pepcid] 20 mg PO BID PRN tablet 12/07/17 Magnesium Oxide [Mag-Ox 400] 400 mg PO DAILYCM 12/07/17 Metformin HCl 500 mg PO BID #1 12/07/17 Acetaminophen [Tylenol Tablet] 650 mg PO Q6H PRN PRN tablet 12/19/17 Apixaban [Eliquis] 5 mg PO BID #60 tab 12/19/17 Isosorbide Mononitrate [Monoket] 10 mg PO BID tablet 12/19/17 Lidocaine [Lidoderm Patch] 1 patch TOPICAL DAILY #30 patch 12/19/17 Pramipexole Di-HCl [Mirapex] 0.125 mg PO HS #30 tab 12/19/17 Following Prescrptions Were Given to Patient: Lidocaine [Lidoderm Patch] 1 patch TOPICAL DAILY #30 patch Pramipexole Di-HCl [Mirapex] 0.125 mg PO HS #30 tab Apixaban [Eliquis] 5 mg PO BID #60 tab Primary Care Physician: Marisela Jensen [Primary Care Provider] - Please Follow Up With: Dr. Marisela Jensen Please Follow Up With: Daysi Arriola, KIMI When: January 17, @ 2:00 PM Disposition: Home with Home Health Minutes spent on discharge:: 40 Patient Condition:: Good Rehab Course The patient is a 76 year old right handed male with history of left MCA infarct , lives at home independent with . reports since he has had increasing difficulty starting with difficulty getting out of bed and increased right sided weakness which has slowly improved. also reports his language is worse since . on Coumadin for AFib, INR subtherapeutic upon presentation , pt reports good compliance with meds. reports sdh/crani '14,(on Coumadin) treated in [place], CVA about '16. workup in the hospital was negative for acute stroke by MRI, and EEG did not show epileptiform changes. no other cause of his debility was immediately clear. he has ongoing debility due to his chronic stroke as well as his acute decompensation and is therefore admitted to the rehab unit for therapy in order with restore his previous level of functional independence. With Physical therapy with bed mobility he requires minimal assistance to get to the side of the bed. Once sitting on the side he is standby assist to go from a sitting position to a standing position and requires an occasional light hand to pivot. He is able to ambulate about 100 to 150 feet with a walker at stand by assist. The plan is to continue working on walking up and down stairs and around obstacles in the community, he is doing better but still requires a light hand for balance. 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 He is minimal assist for personal care. With Speech therapy, he is back to baseline per the patient and the family, he has been instructed to keep working on says the words slowly and annunciating each syllable. Speaking more slowly and taking large words and breaking them into small segments before saying them. He was given range of motion, and strengthen exercises for the muscles used for speech. With nursing not issues. Will be discharged on Saturday home with family , will do family teaching on Saturday to help with any concerns and to help identify any problems. Will be discharged home with Physical therapy and Occupational therapy, and a home health aide. Meaningful Use Info Meaningful Use Diagnoses (Choose all that apply): None applicable - CVA Therapy Assessed for PT,OT and/or ST?: Yes - Ischemic Stroke Antithrombotic order at d/c?: Yes Dx of Atrial fib/flutter?: Yes Anticoagulant at discharge?: Yes Statins at discharge?: Yes
--- NOTE | 2017-12-20 16:21 | DCINST_ITS ---
- Discharge Diagnoses Reason(s) for Visit for Discharge Instructions: CVA You will use the following diet at home:: Calorie/Carbohydrate Controlled ( specify 1200, 1400, etc) Your food should be the consistency of: Regular Your liquids should be the consistency of: Regular/Thin Discharge Activity: May Not Drive, May Shower, May Take a Tub Bath, Use Walker Weight Bearing Status: Weight bearing as tolerated Call your doctor if you observe: Fever of 101 or Higher, Coldness, Increased Pain, Numbness or Tingling, Change in Color, Inability to urinate, Inability to have a bowel movement, Using more than one pad per hour, Shortness of breath, Dizziness, Fainting spells, Swelling in the ankles, Chest pain, Prolonged hiccoughing, Increased palpitations (irregular heartbeat), Calf discomfort, Uncontrolled pain Allergies/Adverse Reactions: Allergies Penicillins [PCN] Allergy (Verified 12/07/17 17:58) Hives Medications to take at Discharge Allopurinol 300 mg PO DAILY 12/05/17 Carvedilol 6.25 mg PO BID 12/05/17 Lisinopril [Zestril] 5 mg PO DAILY 12/05/17 Paroxetine [Paxil] 40 mg PO QHS 12/05/17 Pravastatin [Pravachol] 20 mg PO QHS 12/05/17 Tamsulosin HCl [Flomax] 0.4 mg PO DINNER 12/05/17 Famotidine [Pepcid] 20 mg PO BID PRN tablet 12/07/17 Magnesium Oxide [Mag-Ox 400] 400 mg PO DAILYCM 12/07/17 Metformin HCl 500 mg PO BID #1 12/07/17 Acetaminophen [Tylenol Tablet] 650 mg PO Q6H PRN PRN tablet 12/19/17 Apixaban [Eliquis] 5 mg PO BID #60 tab 12/19/17 Isosorbide Mononitrate [Monoket] 10 mg PO BID tablet 12/19/17 Lidocaine [Lidoderm Patch] 1 patch TOPICAL DAILY #30 patch 12/19/17 Pramipexole Di-HCl [Mirapex] 0.125 mg PO HS #30 tab 12/19/17 The following prescriptions were given: Lidocaine [Lidoderm Patch] 1 patch TOPICAL DAILY #30 patch Pramipexole Di-HCl [Mirapex] 0.125 mg PO HS #30 tab Apixaban [Eliquis] 5 mg PO BID #60 tab Primary Care Physician: Mairsela Jensen [Primary Care Provider] - Please Follow Up With: Dr. Marisela Jensen Please Follow Up With: Daysi Arriola NP-C When: January 17, @ 2:00 PM Proposed Discharge Date: 12/21/17
[2017-12-20 16:26] LABS: Bedside Glucose 116 mg/dL (70-110)
[2017-12-20] MEDS: Tamsulosin HCl 0.4 MG Capsule PO (17:31)
[2017-12-20 21:54] VITALS: BP 130/59; PULSE 59; RESP 18; TEMP 36.9; O2SAT 97
[2017-12-20] MEDS: PARoxetine 10 MG Tablet 40 MG PO (22:00)
[2017-12-20] MEDS: Pravastatin 20 MG Tablet PO (22:00)
[2017-12-20] MEDS: Pramipexole Di-HCl 0.125 MG Tablet PO (22:02)
[2017-12-20 22:36] LABS: Bedside Glucose 122 mg/dL (70-110)
[2017-12-21 07:06] LABS: Bedside Glucose 126 mg/dL (70-110)
[2017-12-21 07:43] VITALS: BP 108/78; PULSE 79; RESP 17; TEMP 36.6; O2SAT 97
[2017-12-21] MEDS: Acetaminophen 325 MG Tablet 650 MG PO (07:44)
[2017-12-21] MEDS: Carvedilol 6.25 MG Tablet PO (07:44)
[2017-12-21] MEDS: Senna/Docusate Sodium 1 Tablet 2 TABLET PO (07:45)
[2017-12-21] MEDS: Allopurinol 300 MG Tablet PO (07:45)
[2017-12-21] MEDS: Magnesium Oxide 400 MG Tablet PO (07:46)
[2017-12-21] MEDS: Isosorbide Mononitrate 20 MG Tablet 10 MG PO (07:46)
[2017-12-21] MEDS: APIXABAN 5 MG TABLET PO (07:46)
[2017-12-21] MEDS: Lisinopril 5 MG Tablet PO (07:48)
[2017-12-21] MEDS: Lidocaine 5% Patch 1 PATCH TOPICAL (07:53)
[2017-12-21 10:53] VITALS: BMI 29.7
--- NOTE | 2017-12-21 11:02 | NURSING ---
Discharge instructions given to and patient and verbalized understanding.
[2017-12-21 11:05] VITALS: BP 108/78; PULSE 79; RESP 17; TEMP 36.6; O2SAT 97
== END 2017-12-21 11:05 | disposition home health service (06) | DRG 57 ==
PROVIDERS: Hospitalist; Admitting Provider Psychiatry & Neurology Neurology; Family Provider Internal Medicine Infectious Disease; PCP Internal Medicine Infectious Disease; Visit Provider Hospitalist
DX: I69.351 Hemiplegia and hemiparesis following cerebral infarction affecting right dominant side (principal); I69.328 Other speech and language deficits following cerebral infarction; I48.2 Chronic atrial fibrillation; G47.33 Obstructive sleep apnea (adult) (pediatric); N40.0 Benign prostatic hyperplasia without lower urinary tract symptoms; E78.5 Hyperlipidemia, unspecified; I10 Essential (primary) hypertension; E11.9 Type 2 diabetes mellitus without complications; Z79.01 Long term (current) use of anticoagulants; G25.81 Restless legs syndrome; M10.9 Gout, unspecified
CPT/HCPCS: 36415; 80048; 82962; 85027; 85610; 92507; 92606; 97110; 97112; 97116; 97161; 97166; 97530; 97535; 97802

== ENCOUNTER → 2018-04-17 17:54 | Outpatient (CLI) | payer MEDICARE, BC, SELFPAY ==
[2018-04-17 18:24] LABS: Absolute Lymphocyte Count 2.84 X10^3/ul (0.83-4.51); Absolute Neutrophil Count 5.3 X10^3/uL (2.0-7.7); Basophil# 0.02 X10^3/uL; Basophil% 0.2 % (0-1); Eosinophil# 0.27 X10^3/uL; Hematocrit 43.9 % (40-54); Hemoglobin 14.1 g/dl (13.0-16.5); Lymphocyte # 2.84 X10^3/ul (4.0); Lymphocyte % 31.3 % (19-41); Mean Corp Hgb Conc 32.1 g/gl (32-36); Mean Corpuscular Hgb 31.6 pg (27.0-32.0); Mean Corpuscular Volume 98.4 fL (80-94); Mean Platelet Vol. 10.4 fl (6.2-12.0); Monocyte# 0.59 X10^3/uL; Monocyte% 6.5 % (0-10); Neutrophil # 5.33 X10^3/uL (2.7-7.7); Neutrophil % 58.8 % (47-70); Platelet Count 211 K/mm3 (150-450); RBC Distribution Width CV 14.1 % (11.6-14.6); RBC Distribution Width SD 50.3 fl (35.1-43.9); Red Blood Count 4.46 M/mm3 (4.6-6.2); White Blood Count 9.1 K/mm3 (4.4-11.0)
[2018-04-17 18:34] LABS: POSITIVE COUNT NO; POSITIVE DIFFERENTIAL NO; POSITIVE MORPHOLOGY NO
[2018-04-17 19:00] LABS: ALB/GLOB Ratio 0.9 RATIO (0.9-2.4); AST(SGOT) 47 U/L (15-37); Alanine Aminotransfer ALT/SGPT 65 U/L (16-61); Albumin, Serum 3.8 g/dL (3.2-5.0); Alkaline Phosphatase 92 U/L (45-117); Anion Gap 8 (5-15); BUN 22 mg/dL (7-18); BUN/Creat Ratio 23.5 RATIO (10-20); Chloride 108 mmol/L (98-107); Creatinine, Serum 0.94 mg/dL (0.70-1.30); EST Glomerular Filtration Rate 83 mL/min (>60); Est Glom Filt Rate - Afr Amer 100 mL/min (>60); Globulin 4.2 g/dL (2.2-4.2); Glucose 97 mg/dL (74-106); Potassium 4.8 mmol/L (3.5-5.1); Sodium Level 140 mmol/L (136-145); Uric Acid 2.7 mg/dL (3.5-7.2)
[2018-04-18 08:36] LABS: Vitamin D,25 Hydroxy 19.3 ng/mL (29.95-100.01)
== END ==
PROVIDERS: Family Provider Family Medicine Geriatric Medicine; PCP Family Medicine Geriatric Medicine; Visit Provider Family Medicine Geriatric Medicine
DX: E11.9 Type 2 diabetes mellitus without complications (principal); E55.9 Vitamin D deficiency, unspecified; M10.9 Gout, unspecified
CPT/HCPCS: 36415; 80053; 82306; 84443; 84550; 85025

== ENCOUNTER → 2018-05-15 15:27 | Outpatient (CLI) | payer MEDICARE, BC, SELFPAY | PROVIDERS: Family Provider Family Medicine Geriatric Medicine; PCP Family Medicine Geriatric Medicine; Visit Provider Family Medicine Geriatric Medicine | DX: E03.9 Hypothyroidism, unspecified (principal) ==

== ENCOUNTER → 2018-07-23 11:37 | Outpatient (CLI) | payer MEDICARE, BC, SELFPAY ==
[2018-07-23 13:07] LABS: Absolute Lymphocyte Count 2.61 X10^3/ul (0.83-4.51); Absolute Neutrophil Count 5.7 X10^3/uL (2.0-7.7); Basophil# 0.02 X10^3/uL; Basophil% 0.2 % (0-1); Eosinophil# 0.29 X10^3/uL; Eosinophils% 3.1 % (0-5); Hematocrit 43.4 % (40-54); Hemoglobin 13.8 g/dl (13.0-16.5); Lymphocyte # 2.61 X10^3/ul (4.0); Lymphocyte % 28.3 % (19-41); Mean Corp Hgb Conc 31.8 g/gl (32-36); Mean Corpuscular Hgb 31.5 pg (27.0-32.0); Mean Corpuscular Volume 99.1 fL (80-94); Monocyte# 0.58 X10^3/uL; Monocyte% 6.3 % (0-10); Neutrophil # 5.72 X10^3/uL (2.7-7.7); Platelet Count 221 K/mm3 (150-450); RBC Distribution Width CV 13.3 % (11.6-14.6); Red Blood Count 4.38 M/mm3 (4.6-6.2); White Blood Count 9.2 K/mm3 (4.4-11.0)
[2018-07-23 13:30] LABS: ALB/GLOB Ratio 0.9 RATIO (0.9-2.4); AST(SGOT) 12 U/L (15-37); Alanine Aminotransfer ALT/SGPT 22 U/L (16-61); Albumin, Serum 3.6 g/dL (3.2-5.0); Alkaline Phosphatase 100 U/L (45-117); Anion Gap 9 (5-15); BUN 14 mg/dL (7-18); BUN/Creat Ratio 15.3 RATIO (10-20); Calcium,Total 8.9 mg/dL (8.5-10.1); Chloride 109 mmol/L (98-107); Creatinine, Serum 0.92 mg/dL (0.70-1.30); EST Glomerular Filtration Rate 85 mL/min (>60); Est Glom Filt Rate - Afr Amer 103 mL/min (>60); Globulin 3.9 g/dL (2.2-4.2); Glucose 143 mg/dL (74-106); Potassium 4.3 mmol/L (3.5-5.1); Protein, Total 7.5 g/dL (6.4-8.2); Sodium Level 143 mmol/L (136-145); Thyroid Stim Hormone (TSH) 2.34 uIU/mL (0.358-3.74); Uric Acid 2.8 mg/dL (3.5-7.2)
[2018-07-23 13:42] LABS: Vitamin D,25 Hydroxy 11.5 ng/mL (29.95-100.01)
[2018-07-23 14:09] LABS: POSITIVE COUNT NO; POSITIVE DIFFERENTIAL NO; POSITIVE MORPHOLOGY NO
== END ==
PROVIDERS: Family Provider Family Medicine Geriatric Medicine; PCP Family Medicine Geriatric Medicine; Visit Provider Family Medicine Geriatric Medicine
DX: E55.9 Vitamin D deficiency, unspecified (principal); M10.9 Gout, unspecified; R53.83 Other fatigue
CPT/HCPCS: 36415; 80053; 82306; 84443; 84550; 85025

== ENCOUNTER → 2018-10-29 13:24 | Outpatient (CLI) | payer MEDICARE, BC, SELFPAY ==
--- NOTE | 2018-10-29 14:34 | VDLE_ITS ---
Reason For Study: Edema RIGHT LEFT GSV is normal. GSV is normal. CFV is compressible, spontaneous, phasic, CFV is compressible, spontaneous, phasic, competent and demonstrates normal competent, and demonstrates normal augmentation. augmentation. FV is compressible, spontaneous, phasic, FV is compressible, spontaneous, phasic, competent and demonstrates normal competent and demonstrates normal augmentation. augmentation. POP V is compressible, spontaneous, phasic, POP V is compressible, spontaneous, phasic, competent and demonstrates normal competent and demonstrates normal augmentation. augmentation. T/P Trunk is compressible. T/P Trunk is compressible. PTV is compressible. PTV is compressible. RT PerV is compressible. LT PerV is compressible. Procedure Exam performed in department. A preliminary report was called and/or faxed to Dr. Carrasquillo. Interpretation Summary Deep veins of the lower extremities are bilaterally patent and compressible segmentally. There is no evidence of deep vein thrombosis on either side. Valvular competence appears intact within the proximal deep venous systems bilaterally. The greater saphenous veins appear bilaterally patent and compressible segmentally. Ordering Physician: Lewis Carrasquillo Chi Referring Physician: Lewis Carrasquillo Chi Performed By: Ashlee Peace RVT
[2018-10-29 17:05] LABS: Absolute Lymphocyte Count 2.48 X10^3/ul (0.83-4.51); Absolute Neutrophil Count 4.6 X10^3/uL (2.0-7.7); Basophil# 0.03 X10^3/uL; Basophil% 0.4 % (0-1); Eosinophil# 0.32 X10^3/uL; Eosinophils% 3.9 % (0-5); Hematocrit 39.4 % (40-54); Hemoglobin 12.8 g/dl (13.0-16.5); Lymphocyte # 2.48 X10^3/ul (4.0); Lymphocyte % 30.4 % (19-41); Mean Corp Hgb Conc 32.5 g/gl (32-36); Mean Corpuscular Hgb 32.2 pg (27.0-32.0); Mean Platelet Vol. 11.1 fl (6.2-12.0); Monocyte# 0.72 X10^3/uL; Monocyte% 8.8 % (0-10); Neutrophil # 4.59 X10^3/uL (2.7-7.7); Neutrophil % 56.4 % (47-70); Platelet Count 201 K/mm3 (150-450); RBC Distribution Width CV 13.4 % (11.6-14.6); RBC Distribution Width SD 47.8 fl (35.1-43.9); Red Blood Count 3.98 M/mm3 (4.6-6.2); White Blood Count 8.2 K/mm3 (4.4-11.0)
[2018-10-29 17:08] LABS: POSITIVE COUNT NO; POSITIVE DIFFERENTIAL NO; POSITIVE MORPHOLOGY NO
[2018-10-29 17:44] LABS: AST(SGOT) 16 U/L (15-37); Alanine Aminotransfer ALT/SGPT 23 U/L (16-61); Albumin, Serum 3.4 g/dL (3.2-5.0); Alkaline Phosphatase 95 U/L (45-117); Anion Gap 11 (5-15); BUN 15 mg/dL (7-18); BUN/Creat Ratio 17.4 RATIO (10-20); Calcium,Total 8.5 mg/dL (8.5-10.1); Chloride 110 mmol/L (98-107); Creatinine, Serum 0.86 mg/dL (0.70-1.30); EST Glomerular Filtration Rate 91 mL/min (>60); Est Glom Filt Rate - Afr Amer 110 mL/min (>60); Globulin 3.3 g/dL (2.2-4.2); Glucose 158 mg/dL (74-106); Potassium 4.4 mmol/L (3.5-5.1); Protein, Total 6.7 g/dL (6.4-8.2); Sodium Level 143 mmol/L (136-145); Uric Acid 3.3 mg/dL (3.5-7.2)
[2018-10-29 17:46] LABS: Vitamin D,25 Hydroxy 26.6 ng/mL (29.95-100.01)
== END ==
PROVIDERS: Family Provider Family Medicine Geriatric Medicine; PCP Family Medicine Geriatric Medicine; Visit Provider Family Medicine Geriatric Medicine
DX: E55.9 Vitamin D deficiency, unspecified (principal); I10 Essential (primary) hypertension; M10.9 Gout, unspecified; N39.0 Urinary tract infection, site not specified; R60.0 Localized edema
CPT/HCPCS: 36415; 80053; 82306; 84443; 84550; 85025; 87086; 87088; 93970

== ENCOUNTER 2018-12-27 18:33 | Emergency (ER) | payer MEDICARE, BC, SELFPAY ==
[2018-12-27 18:34] VITALS: BP 194/89; PULSE 76; RESP 18; TEMP 36.4; O2SAT 96; BMI 32.0
--- NOTE | 2018-12-27 19:07 | CT_ITS ---
STUDY: CT BRAIN WITHOUT CONTRAST REASON FOR EXAM: Male, 78 years old. Dizzy. RADIATION DOSAGE (If Supplied By Facility): CTDIvol = ( 44.99 ) mGy, DLP = ( 897.35 ) mGycm TECHNIQUE: Transaxial CT imaging of the brain was performed without administration of intravenous contrast material. Individualized dose optimization techniques were used for this CT. COMPARISON: December 05, 2017 FINDINGS: Normal soft tissue structures. There is evidence of bilateral frontal craniotomies and bilateral rtiika holes within the parietal calvarium. There is stable encephalomalacia within the left parietal lobe consistent with an old infarct. There is mild cerebral atrophy with widening of the extra-axial spaces and ventricular dilatation. Normal white matter tracts of the cerebral hemispheres. There is a stable low-attenuation focus within the left basal ganglia consistent with an old lacunar infarct. Normal brainstem. Normal cerebellum. There is no intracranial hemorrhage. There are no findings of an acute ischemic infarction. There is partial opacification of the paranasal sinuses. CT/Brain/Head without Contrast IMPRESSION: Chronic involutional changes of the brain. 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 Partial opacification of the paranasal sinuses consistent with a history of sinusitis. Electronically Signed: Claly Lai MD at 20:10 EDT Tel , Service support ,
--- NOTE | 2018-12-27 19:17 | EKG12_ITS ---
Test Reason : DIZZINESS Blood Pressure : / mmHG Vent. Rate : 080 BPM Atrial Rate : 080 BPM P-R Int : 158 ms QRS Dur : 136 ms QT Int : 392 ms P-R-T Axes : 083 180 -09 degrees QTc Int : 452 ms Atrial Flutter Indeterminate axis Low Voltage QRS Poor R-Wave Progression Right bundle branch block Abnormal ECG Confirmed by JUAN CARDONA, GILL ([id number]), editorial specialist JAMIE GARNICA ([id number]) on 12/29/2018 12:05:23 PM Referred By: BÁRBARA Confirmed By:GILL MARTINEZ MD
--- NOTE | 2018-12-27 19:22 | ED.DCSUM_ITS ---
- ER Visit Summary Date of Service: 12/27/18 Chief Complaint: Dizziness History of Present Illness: The patient is a 78 M who states that he woke this morning with sore throat. He laid around all day and his sore throat got better. He developed some rhinorrhea and nasal congestion. He states now he cannot walk worth shit. He states he has had some headaches. tells me that that is not new but then she tells me that he does not ever get headaches. He states that he cannot turn his head to the left of the right without passing out. He tells me this as he is actually turning his head to the left and right. When I point out that he is doing what he says he cannot do he says well I feel pretty good right now. When I asked what is wrong at this moment he cannot tell me. He has had multiple strokes in the past. He has had subdural craniotomy. Physical Examination: Noted hypertension 194/89 otherwise vital signs are stable Gen: Well-nourished well-developed Head: Normocephalic atraumatic Eyes: Perrl EOMI ENT: TMs clear no rhinorrhea moist mucous membranes Neck: Supple no lymphadenopathy no JVD nontender CVS: Regular rate rhythm no murmurs normal S1-S2 Respiratory: No distress clear to auscultation bilaterally chest nontender Abdomen: Soft nontender nondistended normal bowel sounds no masses Back: Nontender Extremity: Nontender no edema Skin: Normal color no rash Neuro: alert orientated ?3 CN II-XII intact normal strength sensation patient has a normal jzzxuu-as-wrin. He has a normal heel espinoza. Psych: Normal affect normal mood Test Results: CBC and BMP are normal. CT brain showed some sinusitis. EKG demonstrates a normal sinus rhythm with right bundle branch block and a rate of 80. Chest x-ray negative. Emergency Department Course and Treatment: Patient was allowed to rest. When nursing first attempted to get him up he appeared very unsteady on his feet. They put him back to bed. When asked how he did and he states he did poorly as he got up too fast. I then set him up slowly in the bed about him to sit there for a minute and got him up and he is able to ambulate with a walker which he uses at home to the bathroom and back. states he seemed to be doing pretty well and he did not feel dizzy. At this point is got some sinusitis on his CT. He woke up this morning with a sore throat developed nasal congestion and rhinorrhea and then later developed dizziness with movement of his head. I suspect the sinusitis is resulted in eustachian tube dysfunction resulting in vertiginous-like symptoms. We will treat with doxycycline as he has a penicillin allergy. Return if worsening or concerns. Impression: 1. Sinusitis 2. Vertigo This note was generated with [employer] dictation software. It may contain incorrect words, spelling, and punctuation that were not noted in review of the chart prior to signing ED Disposition - Plan for ED Patient: Disposition: Home or Assisted Living Instructions: ED BPV Vertigo, ED Sinusitis Abx Tx Prescriptions: Doxycycline 100 mg PO BID #19 cap Referrals: Lewis Carrasquillo Chi, MD [Primary Care Provider] - 3-5 Days if not improving Additional Instructions: I would encourage you to be very slow with movements over the next couple days. If you are worsening please return to the emergency department
--- NOTE | 2018-12-27 19:25 | RAD_ITS ---
STUDY: X-RAY CHEST REASON FOR EXAM: Male, 78 years old. Dizziness. TECHNIQUE: Single frontal view of the chest. COMPARISON: December 05, 2017 FINDINGS: There is stable low volume inspiration. There is no demonstrated pleural abnormality. There is cardiomegaly unchanged. Normal mediastinum and sergio. Normal visualized pulmonary arteries. There is atherosclerotic calcification of the aortic arch with tortuosity. Normal visualized thoracic spine. Normal visualized ribs, clavicles, and shoulders. There is no demonstrated abnormality of the visualized soft tissue structures of the upper abdomen. RAD/Chest 1 View (Portable) IMPRESSION: Stable appearance of the chest with no acute finding. Electronically Signed: Gilbert Hammond MD at 19:41 EDT , Service support ,
[2018-12-27 19:43] LABS: Absolute Lymphocyte Count 1.67 X10^3/ul (0.83-4.51); Absolute Neutrophil Count 5.7 X10^3/uL (2.0-7.7); Basophil# 0.03 X10^3/uL; Basophil% 0.4 % (0-1); Eosinophil# 0.19 X10^3/uL; Eosinophils% 2.2 % (0-5); Hemoglobin 14.5 g/dl (13.0-16.5); Lymphocyte # 1.67 X10^3/ul (4.0); Lymphocyte % 19.6 % (19-41); Mean Corpuscular Hgb 31.6 pg (27.0-32.0); Mean Corpuscular Volume 95.9 fL (80-94); Mean Platelet Vol. 10.3 fl (6.2-12.0); Monocyte# 0.89 X10^3/uL; Monocyte% 10.4 % (0-10); Neutrophil # 5.71 X10^3/uL (2.7-7.7); Platelet Count 183 K/mm3 (150-450); RBC Distribution Width CV 13.5 % (11.6-14.6); RBC Distribution Width SD 46.1 fl (35.1-43.9); Red Blood Count 4.59 M/mm3 (4.6-6.2); White Blood Count 8.5 K/mm3 (4.4-11.0)
[2018-12-27 19:44] LABS: POSITIVE COUNT NO; POSITIVE DIFFERENTIAL NO; POSITIVE MORPHOLOGY NO
[2018-12-27 19:45] VITALS: BP 193/81; PULSE 76; RESP 16; O2SAT 95
[2018-12-27 20:37] LABS: Anion Gap 7 (5-15); BUN 13 mg/dL (7-18); BUN/Creat Ratio 15.7 RATIO (10-20); Calcium,Total 8.6 mg/dL (8.5-10.1); Chloride 107 mmol/L (98-107); Creatinine, Serum 0.83 mg/dL (0.70-1.30); EST Glomerular Filtration Rate 95 mL/min (>60); Est Glom Filt Rate - Afr Amer 115 mL/min (>60); Estimated Creatinine Clearance 77.91 ml/min; Glucose 115 mg/dL (74-106); Potassium 4.3 mmol/L (3.5-5.1); Sodium Level 141 mmol/L (136-145)
[2018-12-27] MEDS: Doxycycline 100 MG CAPSULE PO (21:20)
[2018-12-27 21:37] VITALS: BP 174/89; PULSE 79; RESP 18; O2SAT 96
== END 2018-12-27 21:38 | disposition home or self-care (01) ==
PROVIDERS: Emergency Provider Emergency Medicine; Family Provider Family Medicine Geriatric Medicine; PCP Family Medicine Geriatric Medicine
DX: J32.9 Chronic sinusitis, unspecified (principal); R42 Dizziness and giddiness; I45.10 Unspecified right bundle-branch block; E11.9 Type 2 diabetes mellitus without complications; I10 Essential (primary) hypertension; E78.00 Pure hypercholesterolemia, unspecified; I48.91 Unspecified atrial fibrillation; N40.0 Benign prostatic hyperplasia without lower urinary tract symptoms; Z86.73 Personal history of transient ischemic attack (TIA), and cerebral infarction without residual deficits; Z79.01 Long term (current) use of anticoagulants; Z79.899 Other long term (current) drug therapy; Z87.891 Personal history of nicotine dependence
CPT/HCPCS: 36415; 70450; 71045; 80048; 85025; 93005; 99285

== ENCOUNTER → 2019-01-27 | Outpatient (CLI) | payer MEDICARE, BC, SELFPAY ==
[2019-01-27 17:25] LABS: Absolute Lymphocyte Count 2.95 X10^3/ul (0.83-4.51); Absolute Neutrophil Count 5.5 X10^3/uL (2.0-7.7); Basophil# 0.03 X10^3/uL; Basophil% 0.3 % (0-1); Eosinophil# 0.54 X10^3/uL; Eosinophils% 5.5 % (0-5); Hemoglobin 14.1 g/dl (13.0-16.5); Lymphocyte # 2.95 X10^3/ul (4.0); Lymphocyte % 30.2 % (19-41); Mean Corp Hgb Conc 32.8 g/gl (32-36); Mean Corpuscular Hgb 31.1 pg (27.0-32.0); Mean Corpuscular Volume 94.9 fL (80-94); Mean Platelet Vol. 10.8 fl (6.2-12.0); Monocyte# 0.66 X10^3/uL; Monocyte% 6.8 % (0-10); Neutrophil # 5.54 X10^3/uL (2.7-7.7); Neutrophil % 56.8 % (47-70); Platelet Count 205 K/mm3 (150-450); RBC Distribution Width CV 13.4 % (11.6-14.6); Red Blood Count 4.53 M/mm3 (4.6-6.2); White Blood Count 9.8 K/mm3 (4.4-11.0)
[2019-01-27 17:29] LABS: POSITIVE COUNT NO; POSITIVE DIFFERENTIAL NO; POSITIVE MORPHOLOGY NO
[2019-01-27 17:47] LABS: ALB/GLOB Ratio 0.9 RATIO (0.9-2.4); AST(SGOT) 17 U/L (15-37); Alanine Aminotransfer ALT/SGPT 27 U/L (16-61); Albumin, Serum 3.3 g/dL (3.2-5.0); Alkaline Phosphatase 89 U/L (45-117); Anion Gap 8 (5-15); BUN 13 mg/dL (7-18); BUN/Creat Ratio 16.3 RATIO (10-20); Calcium,Total 8.4 mg/dL (8.5-10.1); Chloride 107 mmol/L (98-107); EST Glomerular Filtration Rate 99 mL/min (>60); Est Glom Filt Rate - Afr Amer 120 mL/min (>60); Globulin 3.5 g/dL (2.2-4.2); Glucose 174 mg/dL (74-106); Potassium 4.2 mmol/L (3.5-5.1); Protein, Total 6.8 g/dL (6.4-8.2); Sodium Level 140 mmol/L (136-145); Thyroid Stim Hormone (TSH) 2.23 uIU/mL (0.358-3.74); Uric Acid 3.3 mg/dL (3.5-7.2); Vitamin D,25 Hydroxy 41.4 ng/mL (29.95-100.01)
== END | disposition home or self-care (01) ==
LOC: POLAB3 13:35
PROVIDERS: Family Provider Family Medicine Geriatric Medicine; PCP Family Medicine Geriatric Medicine; Visit Provider Family Medicine Geriatric Medicine
DX: I10 Essential (primary) hypertension (principal); M10.9 Gout, unspecified; E55.9 Vitamin D deficiency, unspecified
CPT/HCPCS: 36415; 80053; 82306; 84443; 84550; 85025

== ENCOUNTER → 2019-04-21 | Outpatient (CLI) | payer MEDICARE, BC, SELFPAY ==
[2019-04-21 16:17] LABS: Absolute Neutrophil Count 5.4 X10^3/uL (2.0-7.7); Basophil# 0.03 X10^3/uL; Basophil% 0.3 % (0-1); Eosinophil# 0.25 X10^3/uL; Eosinophils% 2.8 % (0-5); Hematocrit 41.9 % (40-54); Hemoglobin 13.3 g/dL (13.0-16.5); Lymphocyte % 29.2 % (19-41); Mean Corp Hgb Conc 31.7 g/dL (32-36); Mean Corpuscular Volume 100.7 fL (80-94); Mean Platelet Vol. 10.3 fl (6.2-12.0); Monocyte# 0.57 X10^3/uL; Monocyte% 6.4 % (0-10); NRBC Flagged by Analyzer 0 % (0-5); Neutrophil # 5.42 X10^3/uL (2.7-7.7); Platelet Count 219 K/mm3 (150-450); RBC Distribution Width CV 13.5 % (11.6-14.6); RBC Distribution Width SD 49.7 fl (35.1-43.9); Red Blood Count 4.16 M/mm3 (4.6-6.2); White Blood Count 8.9 K/mm3 (4.4-11.0)
[2019-04-21 16:36] LABS: ALB/GLOB Ratio 0.9 RATIO (0.9-2.4); AST(SGOT) 14 U/L (15-37); Alanine Aminotransfer ALT/SGPT 22 U/L (16-61); Albumin, Serum 3.5 g/dL (3.2-5.0); Alkaline Phosphatase 101 U/L (45-117); Anion Gap 4 (5-15); BUN 15 mg/dL (7-18); BUN/Creat Ratio 15.1 RATIO (10-20); Calcium,Total 8.9 mg/dL (8.5-10.1); Chloride 108 mmol/L (98-107); Creatinine, Serum 0.99 mg/dL (0.70-1.30); EST Glomerular Filtration Rate 77 mL/min (>60); Est Glom Filt Rate - Afr Amer 93 mL/min (>60); Globulin 3.7 g/dL (2.2-4.2); Glucose 143 mg/dL (74-106); Potassium 4.7 mmol/L (3.5-5.1); Protein, Total 7.2 g/dL (6.4-8.2); Sodium Level 140 mmol/L (136-145); Thyroid Stim Hormone (TSH) 2.17 uIU/mL (0.358-3.74); Uric Acid 3.1 mg/dL (3.5-7.2); Vitamin D,25 Hydroxy 26.8 ng/mL (29.95-100.01)
== END | disposition home or self-care (01) ==
LOC: POLAB3 09:05
PROVIDERS: Family Provider Family Medicine Geriatric Medicine; PCP Family Medicine Geriatric Medicine; Visit Provider Family Medicine Geriatric Medicine
DX: E11.65 Type 2 diabetes mellitus with hyperglycemia (principal); E55.9 Vitamin D deficiency, unspecified; M10.9 Gout, unspecified; R53.83 Other fatigue
CPT/HCPCS: 36415; 80053; 82306; 84443; 84550; 85025

== ENCOUNTER → 2019-10-20 14:25 | Outpatient (CLI) | payer MEDICARE, BC, SELFPAY ==
[2019-10-20 14:51] LABS: Absolute Neutrophil Count 4.5 X10^3/uL (2.0-7.7); Basophil# 0.03 X10^3/uL; Basophil% 0.4 % (0-1); Eosinophil# 0.17 X10^3/uL; Eosinophils% 2.1 % (0-5); Hematocrit 39.4 % (40-54); Hemoglobin 12.6 g/dL (13.0-16.5); Lymphocyte % 34.1 % (19-41); Mean Corpuscular Hgb 31.6 pg (27.0-32.0); Mean Corpuscular Volume 98.7 fL (80-94); Mean Platelet Vol. 10.5 fl (6.2-12.0); Monocyte# 0.66 X10^3/uL; NRBC Flagged by Analyzer 0 % (0-5); Neutrophil # 4.52 X10^3/uL (2.7-7.7); Neutrophil % 54.9 % (47-70); Platelet Count 225 K/mm3 (150-450); RBC Distribution Width CV 13.5 % (11.6-14.6); RBC Distribution Width SD 48.8 fl (35.1-43.9); Red Blood Count 3.99 M/mm3 (4.6-6.2); White Blood Count 8.2 K/mm3 (4.4-11.0)
[2019-10-20 15:09] LABS: Vitamin D,25 Hydroxy 44.2 ng/mL (29.95-100.01)
[2019-10-20 15:12] LABS: ALB/GLOB Ratio 0.9 RATIO (0.9-2.4); AST(SGOT) 9 U/L (15-37); Alanine Aminotransfer ALT/SGPT 23 U/L (16-61); Albumin, Serum 3.2 g/dL (3.2-5.0); Alkaline Phosphatase 86 U/L (45-117); Anion Gap 7 (5-15); BUN 13 mg/dL (7-18); BUN/Creat Ratio 13.9 RATIO (10-20); Calcium,Total 8.9 mg/dL (8.5-10.1); Chloride 109 mmol/L (98-107); Creatinine, Serum 0.94 mg/dL (0.70-1.30); EST Glomerular Filtration Rate 82 mL/min (>60); Est Glom Filt Rate - Afr Amer 100 mL/min (>60); Globulin 3.5 g/dL (2.2-4.2); Glucose 151 mg/dL (74-106); Potassium 4.3 mmol/L (3.5-5.1); Protein, Total 6.7 g/dL (6.4-8.2); Sodium Level 142 mmol/L (136-145); Thyroid Stim Hormone (TSH) 2.08 uIU/mL (0.358-3.74); Uric Acid 2.7 mg/dL (3.5-7.2)
== END ==
PROVIDERS: PCP Family Medicine Geriatric Medicine; Visit Provider Family Medicine Geriatric Medicine
DX: E11.65 Type 2 diabetes mellitus with hyperglycemia (principal); E55.9 Vitamin D deficiency, unspecified; I10 Essential (primary) hypertension; M10.9 Gout, unspecified
CPT/HCPCS: 36415; 80053; 82306; 84443; 84550; 85025

== ENCOUNTER 2019-11-09 10:42 | Inpatient (IN) | payer MEDICARE, BC, SELFPAY ==
[2019-11-09] VITALS (8 sets, daily range): BP systolic 105–174; BP diastolic 62–82; PULSE 66–87; RESP 16–18; TEMP 36.3–37.2; O2SAT 94–99; BMI 28.2; BMI 26.2
--- NOTE | 2019-11-09 10:59 | CT_ITS ---
STUDY: CT BRAIN WITHOUT CONTRAST REASON FOR EXAM: Male, 78 years old. FALL X2 TODAY/ GENERAL WEAKNESS -- HX-MULTIPLE STROKES, CRANIOTOMY D/T SDH RADIATION DOSAGE (If Supplied By Facility): CTDIvol = ( 60.81 ) mGy, DLP = ( 1158.30 ) mGycm TECHNIQUE: Transaxial CT imaging of the brain was performed without administration of intravenous contrast material. Individualized dose optimization techniques were used for this CT. COMPARISON: Comparison is made with prior examination December 27, 2018. FINDINGS: Normal soft tissue structures. There is evidence of bilateral parietal ritika holes. There is mild cerebral atrophy with widening of the extra-axial spaces and ventricular dilatation. There are areas of decreased attenuation within the white matter tracts of the supratentorial brain, consistent with microvascular disease changes. Stable encephalomalacia involving the left parietal lobe in keeping with old infarction. Stable small lacunae in the left basal ganglia. Normal brainstem. Normal cerebellum. There is no intracranial hemorrhage. There are no findings of an acute ischemic infarction. Partial opacification of the maxillary sinuses worse on the right side with partial opacification of the sphenoid sinuses as well as the ethmoid and frontal sinuses. CT/Brain/Head without Contrast IMPRESSION: Chronic involutional changes of the brain. Pansinusitis. Electronically Signed: Kirit Baez, at 11:52 EDT , Service support ,
--- NOTE | 2019-11-09 10:59 | EKG12_ITS ---
Test Reason : Blood Pressure : / mmHG Vent. Rate : 065 BPM Atrial Rate : 093 BPM P-R Int : 000 ms QRS Dur : 148 ms QT Int : 450 ms P-R-T Axes : 000 127 -23 degrees QTc Int : 468 ms Atrial fibrillation /Flutter Indeterminate axis Right bundle branch block Abnormal ECG Confirmed by JUAN CARDONA, GILL ([id number]), department editor EDEN DUVALL ([id number]) on 11/10/2019 1:40:18 PM Referred By: MERCEDEZ Confirmed By:GILL MARTINEZ MD
--- NOTE | 2019-11-09 11:04 | RAD_ITS ---
STUDY: X-RAY - RIGHT KNEE REASON FOR EXAM: Male, 78 years old. General weakness, fall TECHNIQUE: 4 view(s) of the knee. COMPARISON: None. FINDINGS: Normal visualized distal femur. Normal visualized proximal tibia and fibula. Normal proximal tibiofibular articulation. Normal medial femorotibial compartment. There is mild degenerative arthrosis of the lateral femorotibial compartment. There is mild degenerative arthrosis of the patellofemoral articulation. There are atherosclerotic calcifications. Chondrocalcinosis. RAD/Knee 4 or More Views IMPRESSION: Degenerative arthrosis. Chondrocalcinosis. Electronically Signed: Kirit Baez, at 11:51 EDT , Service support ,
[2019-11-09] MEDS: 0.9% Normal Saline 1,000 ML 150 ML IV (11:11)
--- NOTE | 2019-11-09 11:13 | ED.DCSUM_ITS ---
- ER Visit Summary Date of Service: 11/09/19 Chief Complaint: [Weakness] History of Present Illness: The patient is a 78 M [presents the emergency department generalized weakness today. Patient had a hard time walking this morning and fell x2. Patient hurt both his knees. He did tell his that he hit his head although to me he denied. Patient is on Eliquis and has had prior subdural hematoma. Patient has history of diabetes, hypertension, and A. fib history. Patient's had multiple strokes in the past. Patient chronically has right-sided weakness. Denies any fever or chills or sweats. Patient states that several months ago he had some teeth extracted from the right lower jaw and there is now piece of tooth or bone protruding from the jaw where the extraction was which is causing him to have difficulty eating and drinking. Patient states that he really has not been drinking water over the last 2 days. Patient denies any vomiting or diarrhea.] Physical Examination: [HEENT-PERRLA, EOMI. Cranial nerves II through XII grossly intact. TMs clear. Mucous membranes moist. No adenopathy. No external evidence of trauma to his head. No C-spine tenderness on palpation. Cardiovascular-irregularly irregular with a 2 out of 6 systolic ejection murmur noted. Lungs-clear to auscultation, chest wall stable without crepitus or subcu emphysema Abdomen-normoactive bowel sounds, soft, nontender, no rebound or rigidity, no peritoneal signs. Extremities-intact ?4, normal range of motion, normal pulses. Bilateral knees- patient has mild soft tissue swelling and erythema with superficial abrasions to bilateral knees with tenderness diffusely about both knees. No obvious deformity noted. No effusions noted. He is neurovascular intact distally.] Test Results: [EKG obtained arrival showed atrial fibrillation with a ventricular rate of 65 bpm with a right bundle branch block.] CBC with differential obtained showed a white count of 11.5, hemoglobin 14, hematocrit 44, platelet 253. Chemistries unremarkable. LFTs were normal. Troponin was less than 0.015. X-rays of the bilateral knees obtained showed chronic degenerative changes. CT scan of the brain showed no intracranial hemorrhage and showed pansinusitis and old left-sided stroke. Emergency Department Course and Treatment: [Patient had an IV line established and was given a liter normal same fluid bolus.] Treatment Plan: [Admit] Disposition: [Admit] Impression: [Generalized weakness Bilateral knee contusions Falls] This note was generated with [employer] dictation software. It may contain incorrect words, spelling, and punctuation that were not noted in review of the chart prior to signing ED Disposition - Plan for ED Patient: Referrals: Lewis Carrasquillo Chi, MD [Primary Care Provider] -
[2019-11-09 11:23] LABS: Absolute Lymphocyte Count 2.06 X10^3/uL (0.83-4.51); Absolute Neutrophil Count 8.4 X10^3/uL (2.0-7.7); Basophil# 0.03 X10^3/uL; Basophil% 0.3 % (0-1); Eosinophil# 0.05 X10^3/uL; Eosinophils% 0.4 % (0-5); Hematocrit 43.7 % (40-54); Hemoglobin 14.1 g/dL (13.0-16.5); Lymphocyte # 2.06 X10^3/ul (4.0); Mean Corp Hgb Conc 32.3 g/dL (32-36); Mean Corpuscular Hgb 31.1 pg (27.0-32.0); Mean Corpuscular Volume 96.3 fL (80-94); Mean Platelet Vol. 9.8 fl (6.2-12.0); Monocyte# 0.93 X10^3/uL; Monocyte% 8.1 % (0-10); NRBC Flagged by Analyzer 0 % (0-5); Neutrophil # 8.35 X10^3/uL (2.7-7.7); Neutrophil % 72.9 % (47-70); Platelet Count 253 K/mm3 (150-450); RBC Distribution Width CV 13.5 % (11.6-14.6); RBC Distribution Width SD 47.8 fl (35.1-43.9); Red Blood Count 4.54 M/mm3 (4.6-6.2); White Blood Count 11.5 K/mm3 (4.4-11.0)
--- NOTE | 2019-11-09 11:30 | RAD_ITS ---
STUDY: X-RAY - LEFT KNEE REASON FOR EXAM: Male, 78 years old. General weakness, fall TECHNIQUE: 4 view(s) of the knee. COMPARISON: None. FINDINGS: Normal visualized distal femur. Normal visualized proximal tibia and fibula. Normal proximal tibiofibular articulation. Normal medial femorotibial compartment. Normal lateral femorotibial compartment. There is mild degenerative arthrosis of the patellofemoral articulation. There are atherosclerotic calcifications. Calcification of the menisci. In keeping with chondrocalcinosis. RAD/Knee 4 or More Views IMPRESSION: Degenerative arthrosis. Chondrocalcinosis. Electronically Signed: Kirit Baez, at 11:50 EDT , Service support ,
[2019-11-09 12:33] LABS: AST(SGOT) 19 U/L (15-37); Alanine Aminotransfer ALT/SGPT 29 U/L (16-61); Albumin, Serum 3.4 g/dL (3.2-5.0); Alkaline Phosphatase 87 U/L (45-117); Anion Gap 8 (5-15); BUN 19 mg/dL (7-18); BUN/Creat Ratio 18.4 RATIO (10-20); Calcium,Total 8.6 mg/dL (8.5-10.1); Chloride 106 mmol/L (98-107); Creatinine, Serum 1.03 mg/dL (0.70-1.30); EST Glomerular Filtration Rate 74 mL/min (>60); Est Glom Filt Rate - Afr Amer 89 mL/min (>60); Estimated Creatinine Clearance 62.78 ml/min; Globulin 3.4 g/dL (2.2-4.2); Glucose 121 mg/dL (74-106); Magnesium 1.4 mg/dL (1.6-2.6); Potassium 3.9 mmol/L (3.5-5.1); Protein, Total 6.8 g/dL (6.4-8.2); Sodium Level 139 mmol/L (136-145)
--- NOTE | 2019-11-09 12:54 | NURSING ---
dr ashleigh castillo
[2019-11-09 12:57] LABS: Squamous Epithelial Cells - UA 0 SEEN /hpf (0-5); White Blood Cells 0 SEEN /hpf (0-5)
[2019-11-09 12:59] LABS: Color, Urine Yellow (Yellow); Glucose, Dipstick Normal (Normal); Ketone-Dipstick Negative (Negative); Leukocyte Esterase-Dipstick Negative /ul (Negative); Nitrite-Dipstick Negative (Negative); Occult Blood-Urine 25 /ul (Negative); Protein-Dipstick 30 mg/dl (Negative); Urine Bilirubin Dipstick 1 mg/dL (Negative); Urine Clarity Clear (Clear); Urine Urobilinogen Normal (Normal)
[2019-11-09 13:06] LABS: Bacteria 1+ /hpf (None Seen); Mucous, Urine RARE /hpf (<or=2+); Red Blood Cells-Urine 0-5 SEEN /hpf (0-5)
--- NOTE | 2019-11-09 13:11 | PCM.HP.STD ---
Problem List (1) Fall Status: Acute (2) Pain, dental Status: Acute History of Present Illness Date of Admission: 11/09/19 Chief Complaint: Weakness Mr Pino is a 78 year old M who presented to the ED on the am of 11/08 with weakness and 2 falls this am. He states both times his legs just gave out on him and he went down to his knees. Denies ever hitting his head (CT in ED was stable with no acute process). He states that in Sep he had some teeth pulled on the R lower jaw and was doing fine but recently he has noticed a sharp protrusion on the medial side of the R mandible that cuts his tongue every time he tries to eat or drink and as such, he has not been able to really eat or drink anything in the last 48 hrs. He had an appt with the dentist today but had to come here 2/2 falls and weakness. His and daughter had to call the squad 2/2 to his inablility to get to the car independently. He states and his and daughter confirm that he was doing okay until recently when his PO intake began to decline. He walks with a walker at baseline and has R side weakness from TIA's in the past. His sCr is slightly elevated from baseline. His BUN is slightly elevated and his UA looks dry with a SG of 1.020 although he had no ketones in his urine. Orthostatics were + with lying to sitting but not otherwise. 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) DM2 (diabetes mellitus, type 2) (Chronic) Hyperlipidemia (Chronic) Gout (Chronic) BPH (benign prostatic hyperplasia) (Chronic) Allergies Penicillins [PCN] Allergy (Verified 11/09/19 10:58) Hives Home Medications: Ambulatory Orders Medication Instructions Recorded Allopurinol 300 mg PO DAILY 12/05/17 Carvedilol 3.125 mg PO BID 12/05/17 Paroxetine [Paxil] 40 mg PO QHS 12/05/17 Magnesium Oxide [Mag-Ox 400] 400 mg PO DAILYCM 12/07/17 Acetaminophen [Tylenol Tablet] 650 mg PO Q6H PRN PRN tablet 12/19/17 Apixaban [Eliquis] 5 mg PO BID #60 tab 12/19/17 Isosorbide Mononitrate [Monoket] 10 mg PO BID tablet 12/19/17 Pramipexole Di-HCl [Mirapex] 0.125 mg PO HS #30 tab 12/19/17 Atorvastatin Calcium 40 mg PO QHS 11/09/19 Levothyroxine [Synthroid] 25 mcg PO DAILY 11/09/19 Metformin HCl [Metformin HCl ER] 500 mg PO BID 11/09/19 Surgical History: no surgical history Psychiatric History: No pertinent psych hx Lives: Spouse/ Significant Other Smoking Status: Never smoker Tobacco Use: Non-smoker Alcohol: None Drugs: None Review of Systems Constitutional: Reports: Weakness, Fatigue. Denies: Anorexia, Chills, Fever, Night Sweats, Malaise, Weight Change Eyes: Denies: Blurred vision, Cataracts, Conjunctivae Inflammation, Double vision, Drainage, Eyelid Inflammation, Pain, Redness, Vision Change HEENT: Reports: Difficulty Hearing, Hard of Hearing, - - mouth pain. Denies: Difficulty Swallowing, Dysphasia, Ear Pain, Eye Pain, Head Aches, Hearing Changes, Nasal bleeding, Nasal Congestion, Post Nasal Drip, Sinus Congestion, Sinus Drainage, Sore Throat, Visual Changes Cardiovascular: Denies: Chest Pain, Claudication, Chest Pressure, Chest Tightness, Edema, Heaviness, Light Headedness, Orthopnea, Palpitations, Paroxysmal Noc. Dyspnea, Syncope Respiratory: Denies: Cough, Hemoptysis, Pleuritic Pain, Shortness of Breath, Shortness of breath at rest, Shortness of breath upon exertion, Sputum production, Wheezing Gastrointestinal: Denies: Abdominal Pain, Constipation, Diarrhea, Dyspepsia, Hematemesis, Hematochezia, Nausea, Melena, Vomiting Genitourinary: Denies: Dysuria, Frequency, Hematuria, Hesitancy, Incontinence, Nocturia, Retention, Urgency Musculoskeletal: Denies: Arm Pain, Back Pain, Foot Pain, Hand Pain, Joint Pain, Joint stiffness, Joint swelling, Joint Tenderness, Leg Pain, Muscle pain, Neck Pain, Shoulder Pain Skin: Denies: Dryness, Jaundice, Lesions, Pruritis, Rash, Skin Changes, Wounds Neurological: Reports: Balance problems - walks with walker at baseline. Denies: Blurred vision, Double vision, Change in Speech, Slurred speech, Confusion, Difficulty swallowing, Focal weakness, Headaches, Incoordination, Numbness, Tingling, Tremor, Seizures Psychiatric: Reports: Depression. Denies: Anxiety, Homicidal Ideations, Suicidal Ideations Endocrine: Denies: Change in Body Habitus, Heat/ Cold Intolerance, Polydipsia, Polyuria, Hx of Irradiation, Hx of Thyroiditis Hematologic/ Lymphatic: Reports: Easy Bruising. Denies: Adenopathy, Anemia, Easy Bleeding, Petechiae, Purpura, Hx of blood clot, Hx of blood transfusion VTE Information - Inpt Only VTE Present on Admission: No VTE Mechan Device Prophylaxis: None VTE Pharm Prophylaxis ordered?: Yes Patient Problems: Active and Suspected Problems Fall (Acute) Pain, dental (Acute) - Physical Exam Vitals/I&O's: Vital Signs Temp Pulse Resp BP Pulse Ox 97.6 F L 68 17 137/62 H 97 11/09/19 10:43 11/09/19 13:04 11/09/19 13:04 11/09/19 13:04 11/09/19 13:04 Oxygen Delivery Method Room Air Weight: 94.4 kg Body Mass Index (BMI) 28.2 Finger Stick Blood Glucose 87 Intake and Output for Last 24 Hours 11/07/19 11/08/19 11/09/19 22:59 23:59 23:59 Intake Total 525 / 525 Balance 525 / 525 General: Alert, Oriented x3, Cooperative, No apparent distress, Well developed, Well nourished HEENT: Atraumatic, PERRLA, EOMI, Normocephalic, EAC Clear, - - very [place] DEE-NI' Oral: Moist Mucosa, No Gingival or Mucosal Lesions/ Ulcerations Neck: Supple, No JVD, Negative Carotid Bruits, Negative Hepatojugular Reflux, No Nodes, No Nuchal Rigidity, Trachea Midline, Thyroid Normal Size and Texture Lungs: Clear to auscultation, Normal air movement, No rhonchi, No wheeze, No rales, Diminished, Rales Cardiovascular: Regular rate, Normal S1, Normal S2, No murmurs, No Ectopic Activity, No rub noted, No Gallop, - - irreg rhythm Abdomen: Bowel Sounds Present, Soft, Non Tender, Non-Distended, No Hepato-splenomegaly, No hernias noted Extremities: No clubbing, No cyanosis, No edema, Capillary Refill Less than 3 Seconds, Peripheral Pulses Normal Skin: No rashes, No breakdown Musculoskeletal: No Tenderness to Palpation of Joints or Extremities Lymphatic: No Cervical, Supraclavicular, or Inguinal Adenopathy Neurological: Cranial nerves II-XII grossly intact, Deep Tendon Reflexes 2+/4 and Symmetrical, Neuro grossly intact, - - 4/5 Proximal R and 5/5 L UE, 4+/5 R and 5/5 L LE, speech is slightly garbled (baseline per family) Psych/Mental Status: Normal Affect, Appropriate, Alert and oriented to time, place, person, mood and affect Laboratory Results 11/09/19 11:10: WBC 11.5 H, RBC 4.54 L, Hgb 14.1, Hct 43.7, MCV 96.3 H, MCH 31.1, MCHC 32.3, RDW Std Deviation 47.8 H, RDW Coeff of Ora 13.5, Plt Count 253, MPV 9.8, Immature Gran % (Auto) 0.300, Neut % (Auto) 72.9 H, Lymph % (Auto) 18.0 L, Mccracken % (Auto) 8.1, Eos % (Auto) 0.4, Baso % (Auto) 0.3, Absolute Neuts (auto) 8.4 H, Absolute Lymphs (auto) 2.06, Nucleated RBC % 0 11/09/19 11:10: Sodium Cancelled, Potassium Cancelled, Chloride Cancelled, Carbon Dioxide Cancelled, Anion Gap Cancelled, BUN Cancelled, Creatinine Cancelled, Estim Creat Clear Calc Cancelled, Est GFR (MDRD) Af Amer Cancelled, Est GFR (MDRD) Non-Af Cancelled, BUN/Creatinine Ratio Cancelled, Glucose Cancelled, Calcium Cancelled, Magnesium Cancelled, Total Bilirubin Cancelled, AST Cancelled, ALT Cancelled, Alkaline Phosphatase Cancelled, Troponin I Cancelled, Total Protein Cancelled, Albumin Cancelled, Globulin Cancelled, Albumin/Globulin Ratio Cancelled 11/09/19 11:43: Sodium Cancelled, Potassium Cancelled, Chloride Cancelled, Carbon Dioxide Cancelled, Anion Gap Cancelled, BUN Cancelled, Creatinine Cancelled, Estim Creat Clear Calc Cancelled, Est GFR (MDRD) Af Amer Cancelled, Est GFR (MDRD) Non-Af Cancelled, BUN/Creatinine Ratio Cancelled, Glucose Cancelled, Calcium Cancelled, Magnesium Cancelled, Total Bilirubin Cancelled, AST Cancelled, ALT Cancelled, Alkaline Phosphatase Cancelled, Troponin I Cancelled, Total Protein Cancelled, Albumin Cancelled, Globulin Cancelled, Albumin/Globulin Ratio Cancelled 11/09/19 12:07: Sodium 139, Potassium 3.9, Chloride 106, Carbon Dioxide 25.0, Anion Gap 8, BUN 19 H, Creatinine 1.03, Estim Creat Clear Calc 62.78, Est GFR (MDRD) Af Amer 89, Est GFR (MDRD) Non-Af 74, BUN/Creatinine Ratio 18.4, Glucose 121 H, Calcium 8.6, Magnesium 1.4 L, Total Bilirubin 0.80, AST 19, ALT 29, Alkaline Phosphatase 87, Troponin I < 0.015, Total Protein 6.8, Albumin 3.4, Globulin 3.4, Albumin/Globulin Ratio 1.0 11/09/19 12:50: Urine Color Yellow, Urine Clarity Clear, Urine pH 5.0, Ur Specific [place] 1.020, Urine Protein 30 H, Urine Glucose (UA) Normal, Urine Ketones Negative, Urine Occult Blood 25 H, Urine Nitrite Negative, Urine Bilirubin 1 H, Urine Urobilinogen Normal, Ur Leukocyte Esterase Negative, Urine RBC 0-5 SEEN, Urine WBC 0 SEEN, Ur Squamous Epith Cells 0 SEEN, Urine Bacteria 1+, Urine Mucus RARE Current Medications Sodium Chloride () 1,000 mls @ 150 mls/hr IV .[id number] [facility] Last Infusion: 11/09/19 11:21 Dose: 0 mls/hr Documented by: Assessment/Plan All Active Problems Fall (Acute) Pain, dental (Acute) Hypomagnesemia (Acute) Subtherapeutic international normalized ratio (INR) (Acute) Acute CVA (cerebrovascular accident) (Acute) Generalized Weakness s/p Fall x 2 -Orthostatic + for lying to sitting -will hydrate -supplements +[facility] soft diet -PT/OT to see -? rehab at d/c Poor PO intake 2/2 Dental issues -[facility] soft diet -liquid supplements -needs f/u as outpt to address dental issues -Consult to Dr. Theodore -Mandible films Mild MAGGIE -hydrate with LR at 75 cc/ hr -suspect will be able to d/c in am -BMP in am DM-2 -continue home metformin -BGT AC HTN -Hold nitrate -continue Coreg PAF -Cont BB -Continue Eliquis for now--> if falls persistently remain a problem may need to re-evaluate benefit/risk Hypothyroidism -continue thyroid replacement therapy Depression -continue Paxil Gout -continue Allopurinol H/O SDH -CT head in ED neg -may need to re-evaluate benefit/risk ratio if pt continue to have falls TIA's/Stroke -multiple per -some residual R sided weakness -PT/OT -uses walker at baseline for home ambulation DVT Prophylaxis -Fully Anticoagulated with NOAC Code Status Dispo -Admit as Observation to Med Surg Inpatient E&M: 39859 Init Hosp L3
--- NOTE | 2019-11-09 13:18 | NURSING ---
303 OBS WEAKNESS, FALLS, CONTUISON KNEES TAN
--- NOTE | 2019-11-09 15:45 | RAD_ITS ---
STUDY: X-RAY - MANDIBLE (COMPLETE) REASON FOR EXAM: Male, 78 years old. right jaw pain, recently had dental work performed, states he feels something is cutting his tongue TECHNIQUE: 6 view(s) of the mandible were obtained. COMPARISON: None. FINDINGS: Normal mandible. Normal visualized right temporomandibular joint. Normal visualized left temporomandibular joint. The remaining visualized osseous structures are normal. The soft tissue structures are unremarkable. RAD/Mandible Min 4 Views IMPRESSION: Normal x-ray examination of the mandible. Electronically Signed: Pepito Todd MD at 16:05 EDT , Service support ,
[2019-11-09] MEDS: Lactated Ringers 1,000 ML 75 ML IV (16:23)
[2019-11-09] MEDS: 0.9% Saline Lock 10 ML Syringe IV (16:23)
[2019-11-09] MEDS: Glucerna Shake 120 ML LIQUID PO ×2 (16:26→23:00)
--- NOTE | 2019-11-09 19:22 | CON.PCM_ITS ---
Problem List (1) Necrosis, bone, acute Status: Acute Reason for Consult Date of Consultation: 11/09/19 Reason for Consultation: Exposed bone medial aspect mandible not associated with teeth History of Present Illness: The patient is a 78 year old Male admitted today secondary to a fall. He had teeth removed several months ago and those sites are well healed. On examaination he has an ulcer on the right lateral tongue from rubbing on some exposed bone lingual aspect inferior portion of mandible and this is not associated with the dental extractions. 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) DM2 (diabetes mellitus, type 2) (Chronic) Hyperlipidemia (Chronic) Gout (Chronic) BPH (benign prostatic hyperplasia) (Chronic) Allergies hydrochlorothiazide Allergy (Verified 11/09/19 14:51) Other confusion Penicillins [PCN] Allergy (Verified 11/09/19 10:58) Hives Home Medications: Ambulatory Orders Medication Instructions Recorded Allopurinol 300 mg PO DAILY 12/05/17 Carvedilol 3.125 mg PO BID 12/05/17 Paroxetine [Paxil] 40 mg PO QHS 12/05/17 Acetaminophen [Tylenol Tablet] 650 mg PO Q6H PRN PRN tablet 12/19/17 Apixaban [Eliquis] 5 mg PO BID #60 tab 12/19/17 Isosorbide Mononitrate [Monoket] 10 mg PO BID tablet 12/19/17 Pramipexole Di-HCl [Mirapex] 0.125 mg PO HS #30 tab 12/19/17 Atorvastatin Calcium 40 mg PO QHS 11/09/19 Levothyroxine [Synthroid] 25 mcg PO DAILY 11/09/19 Metformin HCl [Metformin HCl ER] 500 mg PO BID 11/09/19 Surgical History: no surgical history Psychiatric History: No pertinent psych hx Lives: Spouse/ Significant Other Smoking Status: Never smoker Tobacco Use: Pipe Alcohol: None Drugs: None Patient Problems: Active and Suspected Problems Fall (Acute) Pain, dental (Acute) Necrosis, bone, acute (Acute) - Physical Exam Vitals/I&O's: Vital Signs Temp Pulse Resp BP Pulse Ox 97.4 F L 66 16 145/82 H 99 11/09/19 14:49 11/09/19 14:49 11/09/19 14:49 11/09/19 18:27 11/09/19 14:49 Oxygen Delivery Method Room Air Weight: 87.6 kg Body Mass Index (BMI) 26.2 Finger Stick Blood Glucose 87 Intake and Output for Last 24 Hours 11/07/19 11/08/19 11/09/19 22:59 23:59 23:59 Intake Total 1022.5 / 1022.5 Balance 1022.5 / 1022.5 General: Alert, Oriented x3 HEENT: Atraumatic, PERRLA, EOMI, Normocephalic Oral: Moist Mucosa Laboratory Results 11/09/19 11:10: WBC 11.5 H, RBC 4.54 L, Hgb 14.1, Hct 43.7, MCV 96.3 H, MCH 31.1, MCHC 32.3, RDW Std Deviation 47.8 H, RDW Coeff of Ora 13.5, Plt Count 253, MPV 9.8, Immature Gran % (Auto) 0.300, Neut % (Auto) 72.9 H, Lymph % (Auto) 18.0 L, [place] % (Auto) 8.1, Eos % (Auto) 0.4, Baso % (Auto) 0.3, Absolute Neuts (auto) 8.4 H, Absolute Lymphs (auto) 2.06, Nucleated RBC % 0 11/09/19 11:10: Sodium Cancelled, Potassium Cancelled, Chloride Cancelled, Carbon Dioxide Cancelled, Anion Gap Cancelled, BUN Cancelled, Creatinine Cancelled, Estim Creat Clear Calc Cancelled, Est GFR (MDRD) Af Amer Cancelled, Est GFR (MDRD) Non-Af Cancelled, BUN/Creatinine Ratio Cancelled, Glucose Cancelled, Calcium Cancelled, Magnesium Cancelled, Total Bilirubin Cancelled, AST Cancelled, ALT Cancelled, Alkaline Phosphatase Cancelled, Troponin I Cancelled, Total Protein Cancelled, Albumin Cancelled, Globulin Cancelled, Albumin/Globulin Ratio Cancelled 11/09/19 11:43: Sodium Cancelled, Potassium Cancelled, Chloride Cancelled, Carbon Dioxide Cancelled, Anion Gap Cancelled, BUN Cancelled, Creatinine Cancelled, Estim Creat Clear Calc Cancelled, Est GFR (MDRD) Af Amer Cancelled, Est GFR (MDRD) Non-Af Cancelled, BUN/Creatinine Ratio Cancelled, Glucose Cancelled, Calcium Cancelled, Magnesium Cancelled, Total Bilirubin Cancelled, AST Cancelled, ALT Cancelled, Alkaline Phosphatase Cancelled, Troponin I Cancelled, Total Protein Cancelled, Albumin Cancelled, Globulin Cancelled, Albumin/Globulin Ratio Cancelled 11/09/19 12:07: Sodium 139, Potassium 3.9, Chloride 106, Carbon Dioxide 25.0, Anion Gap 8, BUN 19 H, Creatinine 1.03, Estim Creat Clear Calc 62.78, Est GFR (MDRD) Af Amer 89, Est GFR (MDRD) Non-Af 74, BUN/Creatinine Ratio 18.4, Glucose 121 H, Calcium 8.6, Magnesium 1.4 L, Total Bilirubin 0.80, AST 19, ALT 29, Alkaline Phosphatase 87, Troponin I < 0.015, Total Protein 6.8, Albumin 3.4, Globulin 3.4, Albumin/Globulin Ratio 1.0 11/09/19 12:50: Urine Color Yellow, Urine Clarity Clear, Urine pH 5.0, Ur Specific [place] 1.020, Urine Protein 30 H, Urine Glucose (UA) Normal, Urine Ketones Negative, Urine Occult Blood 25 H, Urine Nitrite Negative, Urine Bilirubin 1 H, Urine Urobilinogen Normal, Ur Leukocyte Esterase Negative, Urine RBC 0-5 SEEN, Urine WBC 0 SEEN, Ur Squamous Epith Cells 0 SEEN, Urine Bacteria 1+, Urine Mucus RARE Current Medications Acetaminophen (Tylenol) 500 mg PO Q4H PRN PRN PRN Reason: Temp > 100.4 F Allopurinol (Zyloprim) 300 mg PO DAILY [facility] Apixaban (Eliquis) 5 mg PO BID [facility] Atorvastatin Calcium (Lipitor) 40 mg PO QHS [facility] Carvedilol (Coreg) 3.125 mg PO BID [facility] Lactated Ringer's () 1,000 mls @ 75 mls/hr IV .[id number] [facility] Last Admin: 11/09/19 16:23 Dose: 75 mls/hr Documented by: Levothyroxine Sodium (Synthroid) 25 mcg PO DAILY@0600 [facility] Last Admin: 11/09/19 17:48 Dose: Not Given Documented by: Nutritional Formula (Lactose Free) (Glucerna Shake) 120 ml PO 4X/DAY [facility] Last Admin: 11/09/19 17:48 Dose: Not Given Documented by: Nystatin/Triamcinolone Acetonide (Mycolog) 1 applic TOPICAL BID [facility]; Protocol Paroxetine HCl (Paxil) 40 mg PO QHS [facility] Sodium Chloride () 10 - 40 ml IV UD PRN PRN Reason: SALINE FLUSH Last Admin: 11/09/19 16:23 Dose: 10 ml Documented by: Assessment/Plan All Active Problems Fall (Acute) Pain, dental (Acute) Necrosis, bone, acute (Acute) Hypomagnesemia (Acute) Subtherapeutic international normalized ratio (INR) (Acute) Acute CVA (cerebrovascular accident) (Acute) Exposed lingual mandible not associated with dental therapy. Will plan on debridement under local anesthesia in the operating room 11/10/2019
[2019-11-09] MEDS: Nystatin/Triamcin Cream Tube 1 APPLIC TOPICAL (22:58)
[2019-11-09] MEDS: Carvedilol 3.125 MG TABLET PO (22:58)
[2019-11-09] MEDS: Atorvastatin Calcium 40 MG Tablet PO (22:58)
[2019-11-09] MEDS: Paroxetine 20 MG Tablet 40 MG PO (22:59)
[2019-11-10] VITALS (10 sets, daily range): BP systolic 100–181; BP diastolic 61–88; PULSE 60–84; RESP 16–20; TEMP 36.2–37.5; O2SAT 90–99; BMI 25.9
[2019-11-10] MEDS: Lactated Ringers 1,000 ML 75 ML IV (05:35)
[2019-11-10] MEDS: Levothyroxine 25 MCG TABLET PO (05:35)
[2019-11-10 05:48] LABS: Absolute Lymphocyte Count 2.85 X10^3/uL (0.83-4.51); Absolute Neutrophil Count 5.4 X10^3/uL (2.0-7.7); Basophil# 0.03 X10^3/uL; Basophil% 0.3 % (0-1); Eosinophil# 0.07 X10^3/uL; Eosinophils% 0.8 % (0-5); Hematocrit 40.8 % (40-54); Hemoglobin 13.2 g/dL (13.0-16.5); Lymphocyte # 2.85 X10^3/ul (4.0); Lymphocyte % 30.6 % (19-41); Mean Corp Hgb Conc 32.4 g/dL (32-36); Mean Corpuscular Hgb 30.9 pg (27.0-32.0); Mean Corpuscular Volume 95.6 fL (80-94); Mean Platelet Vol. 9.8 fl (6.2-12.0); Monocyte# 0.89 X10^3/uL; Monocyte% 9.6 % (0-10); NRBC Flagged by Analyzer 0 % (0-5); Neutrophil # 5.43 X10^3/uL (2.7-7.7); Neutrophil % 58.4 % (47-70); Platelet Count 221 K/mm3 (150-450); RBC Distribution Width CV 13.4 % (11.6-14.6); RBC Distribution Width SD 47.3 fl (35.1-43.9); Red Blood Count 4.27 M/mm3 (4.6-6.2); White Blood Count 9.3 K/mm3 (4.4-11.0)
[2019-11-10 06:14] LABS: Anion Gap 6 (5-15); BUN 14 mg/dL (7-18); BUN/Creat Ratio 14.9 RATIO (10-20); Calcium,Total 8.7 mg/dL (8.5-10.1); Chloride 109 mmol/L (98-107); Creatinine, Serum 0.94 mg/dL (0.70-1.30); EST Glomerular Filtration Rate 82 mL/min (>60); Est Glom Filt Rate - Afr Amer 99 mL/min (>60); Estimated Creatinine Clearance 68.79 ml/min; Glucose 115 mg/dL (74-106); Sodium Level 143 mmol/L (136-145)
[2019-11-10 07:28] LABS: Thyroid Stim Hormone (TSH) 1.18 uIU/mL (0.358-3.74)
[2019-11-10] MEDS: metFORMIN (XR) 500 MG Tablet PO ×2 (07:49→18:37)
[2019-11-10] MEDS: Carvedilol 3.125 MG TABLET PO ×2 (07:49→23:54)
[2019-11-10] MEDS: Allopurinol 300 MG Tablet PO (07:49)
[2019-11-10] MEDS: APIXABAN 5 MG TABLET PO ×2 (07:49→23:54)
[2019-11-10] MEDS: Nystatin/Triamcin Cream Tube 1 APPLIC TOPICAL ×2 (07:52→23:55)
[2019-11-10] MEDS: Glucerna Shake 120 ML LIQUID PO (07:53)
--- NOTE | 2019-11-10 07:58 | NURSING ---
am meds given at this time per pt request
[2019-11-10 08:03] LABS: Hemoglobin A1c 6.9 % (4.2-6.3)
--- NOTE | 2019-11-10 13:45 | CASEMGMT ---
Social Work SW met with pt in room and introduced self and role of SW. Pt lives at home with his in a one story home. Pt states until he recently hurt his knee he was independent with care but now is providing some assistance. Pt ambulates with a rollator and also has a walker, shower bench, 3 in 1 commode and lift chair. Pt reports he has been in [facility] previously and a rehab at [facility]. Pt also states he has had home health services from [facility] in the past, RN/PT/OT and possibly and aid. SW reviewed therapy recommendations with pt that he would benefit from SNF prior to returning home. Pt denies need for SNF and feels he will be independent in about a week. SW inquired about how he will care for himself until he is independent and pt continued to deny need for SNF. Written list of area SNFs provided to pt. With pt permission, phone call placed to pt Sandra. Jha stating she is driving and cannot talk to the SW at this time. SW will attempt to touch base with Yudelka at a later time to confirm d/c plan. DINA Machado
--- NOTE | 2019-11-10 13:54 | CASEMGMT ---
Pt confirms that he has completed both a living will and Health Care POA. SW informed pt that documents are not currently on file at [facility] and requested they be brought in if able. DINA Machado
[2019-11-10 14:11] LABS: Bedside Glucose 99 mg/dL (70-110)
--- NOTE | 2019-11-10 14:46 | PN_ITS ---
Patient Problems: Active and Suspected Problems Fall (Acute) Pain, dental (Acute) Necrosis, bone, acute (Acute) Subjective: Just back from OR and states that his mouth is feeling okay. Is going to try to eat. States that he thinks he did well when he got up with therapy today. Vitals/I&O's: Vital Signs Temp Pulse Resp BP Pulse Ox 97.8 F 68 20 H 100/88 H 94 11/10/19 12:21 11/10/19 12:21 11/10/19 12:21 11/10/19 12:21 11/10/19 12:21 Oxygen Delivery Method Room Air Weight: 86.636 kg Body Mass Index (BMI) 25.9 Finger Stick Blood Glucose 87 Orthostatic Vital Signs Start: 11/10/19 05:40 Freq: q24h Status: Active Protocol: Activity Type Activity Date Activity User E-Sign Co-Sign Detail Recorded Client Recorded Date Recorded By Document 11/10/19 05:40 EV [id number] 11/10/19 05:47 EV 11/10/19 05:40 Orthostatic Vitals Standing -Blood Pressure (90/60-120/80) 146/68 H -Extremity Use Left Arm -Pulse Rate (60-100) 84 Sitting -Blood Pressure (90/60-120/80) 148/61 H -Extremity Use Left Arm -Pulse Rate (60-100) 62 Lying -Blood Pressure (90/60-120/80) 156/68 H -Extremity Use Left Arm -Pulse Rate (60-100) 67 Intake and Output for Last 24 Hours 11/08/19 11/09/19 11/10/19 23:59 23:59 23:59 Intake Total 1042.5 / 1042.5 1788.75 / 1788.75 Output Total 500 / 500 Balance 1042.5 / 1042.5 1288.75 / 1288.75 General: Alert, Oriented x3, Cooperative, No apparent distress, Well developed, Well nourished Lungs: Clear to auscultation, Normal air movement, No rhonchi, No wheeze, No rales Cardiovascular: Regular rate, Normal S1, Normal S2, No murmurs, No Ectopic Activity, - - irreg rhythm Abdomen: Bowel Sounds Present, Soft, Non Tender, Non-Distended, No hernias noted Extremities: No clubbing, No cyanosis, No edema Psych/Mental Status: Normal Affect, Appropriate, Alert and oriented to time, place, person, mood and affect Laboratory Results 11/10/19 05:15: WBC 9.3, RBC 4.27 L, Hgb 13.2, Hct 40.8, MCV 95.6 H, MCH 30.9, MCHC 32.4, RDW Std Deviation 47.3 H, RDW Coeff of Ora 13.4, Plt Count 221, MPV 9.8, Immature Gran % (Auto) 0.300, Neut % (Auto) 58.4, Lymph % (Auto) 30.6, [place] % (Auto) 9.6, Eos % (Auto) 0.8, Baso % (Auto) 0.3, Absolute Neuts (auto) 5.4, Absolute Lymphs (auto) 2.85, Nucleated RBC % 0 11/10/19 05:15: Sodium 143, Potassium 4.0, Chloride 109 H, Carbon Dioxide 28.0, Anion Gap 6, BUN 14, Creatinine 0.94, Estim Creat Clear Calc 68.79, Est GFR (MDRD) Af Amer 99, Est GFR (MDRD) Non-Af 82, BUN/Creatinine Ratio 14.9, Glucose 115 H, Calcium 8.7 11/10/19 05:15: TSH 1.18 11/10/19 05:15: Hemoglobin A1c 6.9 H 11/10/19 13:17: POC Glucose 99 Current Medications Acetaminophen (Tylenol) 500 mg PO Q4H PRN PRN PRN Reason: Temp > 100.4 F Allopurinol (Zyloprim) 300 mg PO DAILY [facility] Last Admin: 11/10/19 07:49 Dose: 300 mg Documented by: Apixaban (Eliquis) 5 mg PO BID [facility] Last Admin: 11/10/19 07:49 Dose: 5 mg Documented by: Atorvastatin Calcium (Lipitor) 40 mg PO QHS [facility] Last Admin: 11/09/19 22:58 Dose: 40 mg Documented by: Carvedilol (Coreg) 3.125 mg PO BID [facility] Last Admin: 11/10/19 07:49 Dose: 3.125 mg Documented by: Lactated Ringer's () 1,000 mls @ 75 mls/hr IV .[id number] [facility] Last Infusion: 11/10/19 14:30 Dose: 75 mls/hr Documented by: Levothyroxine Sodium (Synthroid) 25 mcg PO DAILY@0600 [facility] Last Admin: 11/10/19 05:35 Dose: 25 mcg Documented by: Metformin HCl (Glucophage Xr) 500 mg PO BIDCM [facility] Last Admin: 11/10/19 07:49 Dose: 500 mg Documented by: Nutritional Formula (Lactose Free) (Glucerna Shake) 120 ml PO 4X/DAY [facility] Last Admin: 11/10/19 13:19 Dose: Not Given Documented by: Nystatin/Triamcinolone Acetonide (Mycolog) 1 applic TOPICAL BID [facility]; Protocol Last Admin: 11/10/19 07:52 Dose: 1 applicatio Documented by: Paroxetine HCl (Paxil) 40 mg PO QHS [facility] Last Admin: 11/09/19 22:59 Dose: 40 mg Documented by: Sodium Chloride () 10 - 40 ml IV UD PRN PRN Reason: SALINE FLUSH Last Admin: 11/09/19 16:23 Dose: 10 ml Documented by: STROKE Vital Signs/Narrative: Vital Signs Temp Pulse Resp BP Pulse Ox 11/10/19 12:21 97.8 F 68 20 H 100/88 H 94 Medical Necessity - Tobacco Use Smoking Status: Never smoker Tobacco Use: Pipe Assessment/Plan All Active Problems Fall (Acute) Pain, dental (Acute) Necrosis, bone, acute (Acute) Hypomagnesemia (Acute) Subtherapeutic international normalized ratio (INR) (Acute) Acute CVA (cerebrovascular accident) (Acute) Generalized Weakness s/p Fall x 2 -continue to hydrate but decrease IVF to 50 cc/hr -supplements +[facility] soft diet -PT/OT to see Poor PO intake 2/2 Dental issues -[facility] soft diet -liquid supplements -needs f/u as outpt to address dental issues -Dr. Theodore to take to the OR today for bony debridement Mild MAGGIE -resolved DM-2 -continue home metformin -BGT AC -A1c 6.9 HTN -continue to hold nitrate until done in OR -continue Coreg PAF -Cont BB -Continue Eliquis for now--> if falls persistently remain a problem may need to re-evaluate benefit/risk Hypothyroidism -continue thyroid replacement therapy Depression -continue Paxil Gout -continue Allopurinol H/O SDH -CT head in ED neg -may need to re-evaluate benefit/risk ratio if pt continue to have falls TIA's/Stroke -multiple per -some residual R sided weakness -PT/OT -uses walker at baseline for home ambulation DVT Prophylaxis -Fully Anticoagulated with NOAC Code Status Full Dispo -OR for bony debridement per Oral surgeon today -d/c tomorrow if tolerating PO Inpatient E&M: 27003 Subs Hosp L2
--- NOTE | 2019-11-10 16:17 | PCM.OPRPT ---
Problem List (1) Necrosis, bone, acute Status: Acute Report of Operation Date of Procedure: 11/10/19 Pre-Operative Diagnosis: Necrotic Bone Mandible Post-Operative Diagnosis: Same Surgery/Procedure Performed:: Excisional necrtic sequestrum bone right mandible Description of Surgical Findings:: Patient seen at bedside after admission on 06-10-2020. Pain right tongue throat and inner table of mandible, Approximate 1.5 cm necrotic bone with inflammation around the adjacent tissues. Ulcer right lateral tongue approx 1 cm. Today in the OR under local anesthesia the area was debrided with full thickness flaps and removal of all necrotic bone down to bleeding bone. No specimens sent to pathology. Type of Anesthesia:: Local Specimen's removed: Necrotic bone Estimated Blood Loss (mL): minimal Description of Procedure: Under local anesthesia full thickness flap elevated and sequestrum of bone removed and gently debrided back to healthy viable bone. The site was irrigated and left open to granulate.. The patient tolerated well and was taken to post op care in stable condition breathing spontaneously. All sponge and needle counts correct.
--- NOTE | 2019-11-10 16:27 | PCM.PN.BLA ---
Progress Note Status Post debridement mandible. Found necrotic sequestrum of bone which was removed. Should be able to tolerate regular diet. I have no restrictions as to solids or puree foods. No infection seen. STROKE Vital Signs/Narrative: Vital Signs Temp Pulse Resp BP Pulse Ox 11/10/19 16:11 97.8 F 60 16 171/76 H 98 11/10/19 16:01 97.1 F L 60 16 181/81 H 98
[2019-11-10] MEDS: Paroxetine 20 MG Tablet 40 MG PO (23:54)
[2019-11-10] MEDS: Atorvastatin Calcium 40 MG Tablet PO (23:54)
[2019-11-10] MEDS: Chlorhexidine 480 ML 15 ML PO (23:55)
[2019-11-11] MEDS: Lactated Ringers 1,000 ML 50 ML IV (00:48)
[2019-11-11 02:15] VITALS: BP 162/79; PULSE 73; RESP 20; TEMP 36.4; O2SAT 96
[2019-11-11 02:18] VITALS: BP 162/79; PULSE 75; RESP 20; TEMP 36.4; O2SAT 93
[2019-11-11 05:40] VITALS: BP 140/76; BP 158/92; BP 162/79; PULSE 133; PULSE 74; PULSE 81
[2019-11-11] MEDS: Levothyroxine 25 MCG TABLET PO (06:19)
[2019-11-11 06:31] VITALS: BP 162/79; PULSE 74; RESP 20; TEMP 36.4; O2SAT 97
[2019-11-11 08:13] VITALS: BP 154/69; PULSE 69; RESP 16; TEMP 36.6; O2SAT 96
[2019-11-11] MEDS: metFORMIN (XR) 500 MG Tablet PO (08:19)
[2019-11-11] MEDS: APIXABAN 5 MG TABLET PO (08:19)
[2019-11-11] MEDS: Carvedilol 3.125 MG TABLET PO (08:22)
[2019-11-11] MEDS: Chlorhexidine 480 ML 15 ML PO (08:22)
[2019-11-11] MEDS: Glucerna Shake 120 ML LIQUID PO ×2 (08:22)
[2019-11-11] MEDS: Nystatin/Triamcin Cream Tube 1 APPLIC TOPICAL (08:24)
[2019-11-11] MEDS: Allopurinol 300 MG Tablet PO (08:24)
--- NOTE | 2019-11-11 09:38 | DS.PCM_ITS ---
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) Hx of craniotomy (Chronic) Hx of subdural hematoma (Chronic) Noncompliance with CPAP treatment (Chronic) MELISSA (obstructive sleep apnea) (Chronic) HTN (hypertension) (Chronic) 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 He stated both times his legs just gave out on him and he went down to his knees. He denied ever hitting his head (CT in ED was stable with no acute process). He stated that in Sep he had some teeth pulled on the R lower jaw and was doing fine but recently he has noticed a sharp protrusion on the medial side of the R mandible that cuts his tongue every time he tries to eat or drink and as such, he had not been able to really eat or drink anything in the 48 hrs prior to admission. He presented with his and daughter who had to call the squad 2/2 to his inability to get to the car independently. He stated and his and daughter confirmed that he was doing okay until recently when his PO intake began to decline. On admission his sCr was slightly elevated from baseline and he was given IVF. Oral surgery was consulted and he was taken to the OR on 11/10/2019 for an excisional necrotic sequestrum bone right mandible under local anesthesia. He did well after the procedure and was tolerating PO without issues and said his pain has resolved. He was seen by PT and OT and additional therapy has been recommend for strengthening and balance. Per SW a discussion was held with the and she will be in to see how he is doing and if she would like continued therapy services at home. Patient Problems: Active and Suspected Problems Fall (Acute) Pain, dental (Acute) Necrosis, bone, acute (Acute) Subjective: Pt states that he is drinking ok and having no pain, waiting for breakfast to arrive. Some mild confusion this am. I discussed this with his rony who is working in the ED today and she states that he does have some mild intermittent confusion at home as well. - Physical Exam Vitals/I&O's: Vital Signs Temp Pulse Resp BP Pulse Ox 97.9 F 69 16 154/69 H 96 11/11/19 08:13 11/11/19 08:13 11/11/19 08:13 11/11/19 08:13 11/11/19 08:13 Oxygen Delivery Method Room Air Weight: 86.636 kg Body Mass Index (BMI) 25.9 Finger Stick Blood Glucose 87 Orthostatic Vital Signs Start: 11/10/19 05:40 Freq: q24h Status: Active Protocol: Activity Type Activity Date Activity User E-Sign Co-Sign Detail Recorded Client Recorded Date Recorded By Document 11/11/19 05:40 EV [id number] 11/11/19 06:28 EV 11/11/19 05:40 Orthostatic Vitals Standing -Blood Pressure (90/60-120/80) 162/79 H -Extremity Use Left Arm -Pulse Rate (60-100) 133 H Sitting -Blood Pressure (90/60-120/80) 158/92 H -Extremity Use Left Arm -Pulse Rate (60-100) 74 Lying -Blood Pressure (90/60-120/80) 140/76 H -Extremity Use Left Arm -Pulse Rate (60-100) 81 Intake and Output for Last 24 Hours 11/09/19 11/10/19 11/11/19 23:59 23:59 23:59 Intake Total 1042.5 / 1042.5 2120.00 / 2220.00 100 / 100 Output Total 700 / 700 100 / 100 Balance 1042.5 / 1042.5 1420.00 / 1520.00 0 / 0 General: Alert, Cooperative, No apparent distress, Well developed, Well nourished, - - not oriented to place/POTUS, sitting up in chair and appears comfortable Oral: Moist Mucosa, No Gingival or Mucosal Lesions/ Ulcerations, - - no tenderness with palpation of his R jaw Neck: Supple, No Nodes, No Nuchal Rigidity, Trachea Midline, Thyroid Normal Size and Texture Lungs: Clear to auscultation, Normal air movement, No rhonchi, No wheeze, No rales Cardiovascular: Regular rate, Normal S1, Normal S2, No murmurs, No Ectopic Activity, No rub noted, No Gallop, - - irreg rhythm Abdomen: Bowel Sounds Present, Soft, Non Tender, Non-Distended, No Hepato- splenomegaly, No hernias noted Extremities: No clubbing, No cyanosis, No edema, Capillary Refill Less than 3 Seconds Skin: No rashes, No breakdown Musculoskeletal: No Tenderness to Palpation of Joints or Extremities, No Muscle Wasting, Arthritic Changes Lymphatic: No Cervical, Supraclavicular, or Inguinal Adenopathy Neurological: Deep Tendon Reflexes 2+/4 and Symmetrical, - - generalized weakness and some residual mild R sided weakness Psych/Mental Status: Flat Affect, - - pleasant and follows commands Laboratory Results 11/10/19 13:17: POC Glucose 99 Current Medications Acetaminophen (Tylenol) 500 mg PO Q4H PRN PRN PRN Reason: Temp > 100.4 F Allopurinol (Zyloprim) 300 mg PO DAILY [facility] Last Admin: 11/11/19 08:24 Dose: 300 mg Documented by: Apixaban (Eliquis) 5 mg PO BID [facility] Last Admin: 11/11/19 08:19 Dose: 5 mg Documented by: Atorvastatin Calcium (Lipitor) 40 mg PO QHS [facility] Last Admin: 11/10/19 23:54 Dose: 40 mg Documented by: Carvedilol (Coreg) 3.125 mg PO BID [facility] Last Admin: 11/11/19 08:22 Dose: 3.125 mg Documented by: Chlorhexidine Gluconate (Peridex) 15 ml PO BID [facility] Last Admin: 11/11/19 08:22 Dose: 15 ml Documented by: Lactated Ringer's () 1,000 mls @ 50 mls/hr IV .Q20H [facility] Last Admin: 11/11/19 00:48 Dose: 50 mls/hr Documented by: Levothyroxine Sodium (Synthroid) 25 mcg PO DAILY@0600 [facility] Last Admin: 11/11/19 06:19 Dose: 25 mcg Documented by: Met[facility]) [facility] Last Admin: 11/11/19 08:19 Dose: 500 mg Documented by: Nutritional Formula (Lactose Free) (Glucerna Shake) 120 ml PO 4X/DAY [facility] Last Admin: 11/11/19 08:22 Dose: 120 ml Documented by: Nystatin/Triamcinolone Acetonide (Mycolog) 1 applic TOPICAL BID [facility]; Protocol Last Admin: 11/11/19 08:24 Dose: 1 applicatio Documented by: Paroxetine HCl (Paxil) 40 mg PO QHS [facility] Last Admin: 11/10/19 23:54 Dose: 40 mg Documented by: Sodium Chloride () 10 - 40 ml IV UD PRN PRN Reason: SALINE FLUSH Last Admin: 11/09/19 16:23 Dose: 10 ml Documented by: Home Medications: Medications to take at Discharge Allopurinol 300 mg PO DAILY 12/05/17 Carvedilol 3.125 mg PO BID 12/05/17 Paroxetine [Paxil] 40 mg PO QHS 12/05/17 Acetaminophen [Tylenol Tablet] 650 mg PO Q6H PRN PRN tablet 12/19/17 Apixaban [Eliquis] 5 mg PO BID #60 tab 12/19/17 Isosorbide Mononitrate [Monoket] 10 mg PO BID tablet 12/19/17 Pramipexole Di-HCl [Mirapex] 0.125 mg PO HS #30 tab 12/19/17 Atorvastatin Calcium 40 mg PO QHS 11/09/19 Levothyroxine [Synthroid] 25 mcg PO DAILY 11/09/19 Metformin HCl [Metformin HCl ER] 500 mg PO BID 11/09/19 Primary Care Physician: Lewis Carrasquillo Chi, MD [Primary Care Provider] - Medical Necessity - Tobacco Use Smoking Status: Never smoker Tobacco Use: Pipe Meaningful Use Info Meaningful Use Diagnoses (Choose all that apply): None applicable Inpatient E&M: 46723 Disch Hosp
--- NOTE | 2019-11-11 09:54 | DCINST_ITS ---
- Discharge Diagnoses Current Active Problems: Current Active and Chronic Problems Fall (Acute) Pain, dental (Acute) Necrosis, bone, acute (Acute) You will use the following diet at home:: Calorie/Carbohydrate Controlled (specify 1200, 1400, etc), Cardiac Your food should be the consistency of: Regular Your liquids should be the consistency of: Regular/Thin Discharge Activity: Return to Normal Activity Allergies/Adverse Reactions: Allergies hydrochlorothiazide Allergy (Verified 11/09/19 14:51) Other confusion Penicillins [PCN] Allergy (Verified 11/09/19 10:58) Hives Medications to take at Discharge Allopurinol 300 mg PO DAILY 12/05/17 Carvedilol 3.125 mg PO BID 12/05/17 Paroxetine [Paxil] 40 mg PO QHS 12/05/17 Acetaminophen [Tylenol Tablet] 650 mg PO Q6H PRN PRN tablet 12/19/17 Apixaban [Eliquis] 5 mg PO BID #60 tab 12/19/17 Isosorbide Mononitrate [Monoket] 10 mg PO BID tablet 12/19/17 Pramipexole Di-HCl [Mirapex] 0.125 mg PO HS #30 tab 12/19/17 Atorvastatin Calcium 40 mg PO QHS 11/09/19 Levothyroxine [Synthroid] 25 mcg PO DAILY 11/09/19 Metformin HCl [Metformin HCl ER] 500 mg PO BID 11/09/19 Primary Care Physician: Lewis Carrasquillo Chi, MD [Primary Care Provider] - Please follow up with your Primary Care Physician in: 1-2 weeks Test Results: Test results from this visit will be discussed in further detail at your follow- up appointment, if applicable.
--- NOTE | 2019-11-11 10:23 | CASEMGMT ---
Social Work Note Per physician, pt is medically cleared for discharge today. Pt is also currently confused. VINEET placed a call to pt's Yudelka to confirm discharge plans. Yudelka states that pt lives with her in a one story home with one step in the front to enter and 1.5 steps in the back. Yudelka states pt was somewhat independent, able to bath self but Yudelka states she assisted with cooking and cleaning. Yudelka states she still drives and pt doesn't. Yudelka states pt has walker and cane at home. PCP is Dr. Carrasquillo and Pharmacy is [facility]. Yudelka states that pt has never had HHC before and last time pt was in SNF was in 2012 and pt was at [facility]. Yudelka states pt does take depression medication and does have history of alcohol use but states it has been years since pt has drank. VINEET informed Yudelka that per physician, pt is medically cleared for discharge today. VINEET asked Yudelka about discharge plans including SNF, Home with HHC, Home with outpatient therapy. Yudelka states she will be coming to [facility] around 11:30am today and would like to make sure pt is able to walk and move around ok before pt discharges home. Plan: Likely home, VARSHA HEWITT and VINEET to continue to follow. Thalia Muse PERSONAL BANKING OFFICER, STEREO EQUIPMENT REPAIRER
--- NOTE | 2019-11-11 11:55 | CASEMGMT ---
Addendum entered by Thalia Muse 11/11/19 14:24: Correction pt's name is Yudelka not Adenike. Original Note: Social Work Note Per PT, pt would benefit physically from SNF for balance and strength but mentally would probably be better at home when pt can decide when to do things on his own. SW back in to speak with pt and Adenike. Adenike states that she is interested in HHC but asks what happens if pt goes home and she is not able to take care of pt. SW educated pt on Medicare rules and guidelines and since pt hasn't had three midnight stay in [facility] going to SNF from [facility] or from home will be private pay. SW briefly explained Medicaid to Adenike. SW informed Adenike that there has to be a medical reason for pt to stay at [facility] and at this time, medically pt is ready for discharge and physician cannot keep pt just for Medicare guidelines. SW informed Adenike that there also has to be a medical reason to bring pt back into [facility] and not to bring pt back to [facility] just for placement to SNF. Adenike states that she is agreeable to [facility] for pt and is agreeable to [facility] HHC. SW did provide Adenike with list of SNF and HHC companies. Adenike states pt has walker at home and denied the need for additional DME. SW informed Adenike that HHC can be arranged and can add RN, PT/OT and SW. Adenike and pt state understanding. SW updated RN CM. Plan: Home with HHC Thalia Muse PALEOLOGY PROFESSOR, SEX CRIMES DETECTIVE
--- NOTE | 2019-11-11 13:00 | CASEMGMT ---
VARSHA HEWITT updated by SW that patient and would like [facility] for HHC. VARSHA HEWITT made referral to [facility] and they are able to accept the patient. VARSHA HEWITT updated nurse and SW.
== END 2019-11-11 14:02 | disposition home or self-care (01) | DRG 129 ==
LOC: ED 11:19 → MS3 14:44
PROVIDERS: Anesthesiology; Dentist Oral and Maxillofacial Surgery; Admitting Provider Internal Medicine; Emergency Provider Emergency Medicine; PCP Family Medicine Geriatric Medicine; Visit Provider Internal Medicine
PROC: 0NBT0ZZ Excision of Right Mandible, Open Approach (ICD-10-PCS; principal; 2019-11-10 15:20)
DX: M27.2 Inflammatory conditions of jaws (principal); I69.351 Hemiplegia and hemiparesis following cerebral infarction affecting right dominant side; N17.9 Acute kidney failure, unspecified; R53.1 Weakness; E11.9 Type 2 diabetes mellitus without complications; I10 Essential (primary) hypertension; I48.0 Paroxysmal atrial fibrillation; E03.9 Hypothyroidism, unspecified; M10.9 Gout, unspecified; F32.9 Major depressive disorder, single episode, unspecified; Z79.84 Long term (current) use of oral hypoglycemic drugs; S80.02XA Contusion of left knee, initial encounter; S80.01XA Contusion of right knee, initial encounter; W19.XXXA Unspecified fall, initial encounter; Z79.01 Long term (current) use of anticoagulants; E78.5 Hyperlipidemia, unspecified; N40.0 Benign prostatic hyperplasia without lower urinary tract symptoms; G47.33 Obstructive sleep apnea (adult) (pediatric)
CPT/HCPCS: 36415; 70110; 70450; 73564; 80048; 80053; 81001; 82962; 83036; 83735; 84443; 84484; 85025; 93005; 97116; 97162; 97166; 97530; 97535; 99285; J7030; J7040; J7120; A4216

== ENCOUNTER → 2020-04-26 14:38 | Outpatient (CLI) | payer MEDICARE, BC, SELFPAY ==
[2019-11-10 12:37] VITALS: BMI 25.9
[2020-04-26 16:07] LABS: Absolute Neutrophil Count 5.8 X10^3/uL (2.0-7.7); Basophil# 0.03 X10^3/uL; Basophil% 0.3 % (0-1); Eosinophil# 0.24 X10^3/uL; Eosinophils% 2.3 % (0-5); Hematocrit 42.8 % (40-54); Hemoglobin 13.7 g/dL (13.0-16.5); Lymphocyte % 33.8 % (19-41); Mean Corpuscular Hgb 31.6 pg (27.0-32.0); Mean Corpuscular Volume 98.6 fL (80-94); Mean Platelet Vol. 10.4 fl (6.2-12.0); Monocyte# 0.75 X10^3/uL; Monocyte% 7.2 % (0-10); NRBC Flagged by Analyzer 0 % (0-5); Neutrophil % 55.9 % (47-70); Platelet Count 261 K/mm3 (150-450); RBC Distribution Width CV 13.6 % (11.6-14.6); RBC Distribution Width SD 49.5 fl (35.1-43.9); Red Blood Count 4.34 M/mm3 (4.6-6.2); White Blood Count 10.4 K/mm3 (4.4-11.0)
[2020-04-26 16:32] LABS: ALB/GLOB Ratio 1.1 RATIO (0.9-2.4); AST(SGOT) 15 U/L (15-37); Alanine Aminotransfer ALT/SGPT 29 U/L (16-61); Albumin, Serum 3.9 g/dL (3.2-5.0); Alkaline Phosphatase 105 U/L (45-117); Anion Gap 6 (5-15); BUN 22 mg/dL (7-18); Calcium,Total 9.2 mg/dL (8.5-10.1); Chloride 110 mmol/L (98-107); Creatinine, Serum 0.92 mg/dL (0.70-1.30); EST Glomerular Filtration Rate 84 mL/min (>60); Est Glom Filt Rate - Afr Amer 102 mL/min (>60); Globulin 3.6 g/dL (2.2-4.2); Glucose 85 mg/dL (74-106); Protein, Total 7.5 g/dL (6.4-8.2); Sodium Level 142 mmol/L (136-145); Thyroid Stim Hormone (TSH) 4.11 uIU/mL (0.358-3.74); Uric Acid 2.9 mg/dL (3.5-7.2)
[2020-04-26 16:39] LABS: Vitamin D,25 Hydroxy 51.3 ng/mL
== END ==
PROVIDERS: PCP Family Medicine Geriatric Medicine; Visit Provider Family Medicine Geriatric Medicine
DX: E11.65 Type 2 diabetes mellitus with hyperglycemia (principal); E55.9 Vitamin D deficiency, unspecified; I10 Essential (primary) hypertension; M10.9 Gout, unspecified; N39.0 Urinary tract infection, site not specified
CPT/HCPCS: 36415; 80053; 82306; 84443; 84550; 85025; 87086; 87088; 87186

== ENCOUNTER → 2020-04-27 17:40 | Outpatient (CLI) | payer MEDICARE, BC, SELFPAY ==
[2019-11-10 12:37] VITALS: BMI 25.9
== END ==
PROVIDERS: PCP Family Medicine Geriatric Medicine; Referring Provider Family Medicine Geriatric Medicine; Visit Provider Family Medicine Geriatric Medicine
DX: R06.89 Other abnormalities of breathing (principal)
CPT/HCPCS: 87635; 94799; U0003

== ENCOUNTER → 2020-06-06 11:31 | Outpatient (CLI) | payer MEDICARE, BC, SELFPAY ==
[2019-11-10 12:37] VITALS: BMI 25.9
[2020-06-06 13:41] LABS: Thyroid Stim Hormone (TSH) 2.31 uIU/mL (0.358-3.74)
== END ==
PROVIDERS: PCP Family Medicine Geriatric Medicine; Visit Provider Family Medicine Geriatric Medicine
DX: E03.9 Hypothyroidism, unspecified (principal)
CPT/HCPCS: 36415; 84443

== ENCOUNTER → 2020-10-25 15:09 | Outpatient (CLI) | payer MEDICARE, BC, SELFPAY ==
[2019-11-10 12:37] VITALS: BMI 25.9
[2020-10-25 17:16] LABS: Absolute Lymphocyte Count 2.47 X10^3/uL (0.83-4.51); Absolute Neutrophil Count 5.1 X10^3/uL (2.0-7.7); Basophil# 0.02 X10^3/uL; Basophil% 0.2 % (0-1); Eosinophil# 0.18 X10^3/uL; Eosinophils% 2.1 % (0-5); Hematocrit 43.6 % (40-54); Hemoglobin 13.7 g/dL (13.0-16.5); Lymphocyte # 2.47 X10^3/ul (4.0); Lymphocyte % 28.8 % (19-41); Mean Corp Hgb Conc 31.4 g/dL (32-36); Mean Corpuscular Hgb 31.4 pg (27.0-32.0); Mean Corpuscular Volume 99.8 fL (80-94); Mean Platelet Vol. 10.7 fl (6.2-12.0); Monocyte% 9.3 % (0-10); NRBC Flagged by Analyzer 0 % (0-5); Neutrophil # 5.09 X10^3/uL (2.7-7.7); Neutrophil % 59.4 % (47-70); Platelet Count 225 K/mm3 (150-450); RBC Distribution Width SD 51.8 fl (35.1-43.9); Red Blood Count 4.37 M/mm3 (4.6-6.2); White Blood Count 8.6 K/mm3 (4.4-11.0)
[2020-10-25 17:35] LABS: Vitamin D,25 Hydroxy 37.5 ng/mL
[2020-10-25 17:53] LABS: AST(SGOT) 18 U/L (15-37); Alanine Aminotransfer ALT/SGPT 26 U/L (16-61); Albumin, Serum 3.7 g/dL (3.2-5.0); Alkaline Phosphatase 103 U/L (45-117); Anion Gap 8 (5-15); BUN 17 mg/dL (7-18); BUN/Creat Ratio 18.9 RATIO (10-20); Calcium,Total 9.2 mg/dL (8.5-10.1); Chloride 107 mmol/L (98-107); EST Glomerular Filtration Rate 86 mL/min (>60); Est Glom Filt Rate - Afr Amer 104 mL/min (>60); Globulin 3.6 g/dL (2.2-4.2); Glucose 119 mg/dL (74-106); Potassium 4.5 mmol/L (3.5-5.1); Protein, Total 7.3 g/dL (6.4-8.2); Sodium Level 141 mmol/L (136-145); Thyroid Stim Hormone (TSH) 3.49 uIU/mL (0.358-3.74); Uric Acid 3.1 mg/dL (3.5-7.2)
== END ==
PROVIDERS: PCP Family Medicine Geriatric Medicine; Visit Provider Family Medicine Geriatric Medicine
DX: E11.65 Type 2 diabetes mellitus with hyperglycemia (principal); E55.9 Vitamin D deficiency, unspecified; I10 Essential (primary) hypertension; M10.9 Gout, unspecified
CPT/HCPCS: 36415; 80053; 82306; 84443; 84550; 85025

== ENCOUNTER → 2021-05-02 14:26 | Outpatient (CLI) | payer MEDICARE, BC, SELFPAY ==
[2021-05-02 15:55] LABS: Absolute Lymphocyte Count 2.87 X10^3/uL (0.83-4.51); Absolute Neutrophil Count 4.8 X10^3/uL (2.0-7.7); Basophil# 0.04 X10^3/uL; Basophil% 0.5 % (0-1); Eosinophil# 0.25 X10^3/uL; Eosinophils% 2.9 % (0-5); Hematocrit 39.9 % (40-54); Lymphocyte # 2.87 X10^3/ul (0.83-4.51); Mean Corp Hgb Conc 32.6 g/dL (32-36); Mean Corpuscular Volume 98.3 fL (80-94); Mean Platelet Vol. 10.7 fl (6.2-12.0); Monocyte# 0.67 X10^3/uL; Monocyte% 7.7 % (0-10); NRBC Flagged by Analyzer 0 % (0-5); Neutrophil # 4.84 X10^3/uL (2.7-7.7); Neutrophil % 55.6 % (47-70); Platelet Count 208 K/mm3 (150-450); RBC Distribution Width CV 14.1 % (11.6-14.6); RBC Distribution Width SD 50.9 fl (35.1-43.9); Red Blood Count 4.06 M/mm3 (4.6-6.2); White Blood Count 8.7 K/mm3 (4.4-11.0)
[2021-05-02 16:25] LABS: Vitamin D,25 Hydroxy 40.2 ng/mL
[2021-05-02 16:29] LABS: AST(SGOT) 16 U/L (15-37); Alanine Aminotransfer ALT/SGPT 25 U/L (16-61); Albumin, Serum 3.5 g/dL (3.2-5.0); Alkaline Phosphatase 93 U/L (45-117); Anion Gap 6 (5-15); BUN 17 mg/dL (7-18); Calcium,Total 8.5 mg/dL (8.5-10.1); Chloride 108 mmol/L (98-107); Creatinine, Serum 0.71 mg/dL (0.70-1.30); EST Glomerular Filtration Rate 113 mL/min (>60); Est Glom Filt Rate - Afr Amer 137 mL/min (>60); Globulin 3.4 g/dL (2.2-4.2); Glucose 101 mg/dL (74-106); Potassium 4.4 mmol/L (3.5-5.1); Protein, Total 6.9 g/dL (6.4-8.2); Sodium Level 140 mmol/L (136-145); Thyroid Stim Hormone (TSH) 2.07 uIU/mL (0.358-3.74); Uric Acid 2.5 mg/dL (3.5-7.2)
== END ==
PROVIDERS: PCP Family Medicine Geriatric Medicine; Referring Provider Family Medicine Geriatric Medicine; Visit Provider Family Medicine Geriatric Medicine
DX: E11.65 Type 2 diabetes mellitus with hyperglycemia (principal); E55.9 Vitamin D deficiency, unspecified; I10 Essential (primary) hypertension; M10.9 Gout, unspecified
CPT/HCPCS: 36415; 80053; 82306; 84443; 84550; 85025

== ENCOUNTER 2021-10-31 13:36 | Outpatient (CLI) | payer MEDICARE, BC, SELFPAY ==
[2021-10-31 15:00] LABS: Absolute Lymphocyte Count 2.98 X10^3/uL (0.83-4.51); Absolute Neutrophil Count 6.3 X10^3/uL (2.0-7.7); Basophil# 0.04 X10^3/uL; Basophil% 0.4 % (0-1); Eosinophil# 0.23 X10^3/uL; Eosinophils% 2.2 % (0-5); Hematocrit 42.3 % (40-54); Hemoglobin 13.7 g/dL (13.0-16.5); Lymphocyte # 2.98 X10^3/ul (0.83-4.51); Lymphocyte % 28.4 % (19-41); Mean Corp Hgb Conc 32.4 g/dL (32-36); Mean Corpuscular Hgb 31.9 pg (27.0-32.0); Mean Corpuscular Volume 98.6 fL (80-94); Mean Platelet Vol. 10.9 fl (6.2-12.0); Monocyte% 8.6 % (0-10); NRBC Flagged by Analyzer 0 % (0-5); Neutrophil % 60.1 % (47-70); Platelet Count 230 K/mm3 (150-450); RBC Distribution Width SD 50.8 fl (35.1-43.9); Red Blood Count 4.29 M/mm3 (4.6-6.2); White Blood Count 10.5 K/mm3 (4.4-11.0)
[2021-10-31 15:14] LABS: Vitamin D,25 Hydroxy 36.2 ng/mL
[2021-10-31 15:22] LABS: ALB/GLOB Ratio 0.9 RATIO (0.9-2.4); AST(SGOT) 17 U/L (15-37); Alanine Aminotransfer ALT/SGPT 26 U/L (16-61); Albumin, Serum 3.5 g/dL (3.2-5.0); Alkaline Phosphatase 89 U/L (45-117); Anion Gap 4 (5-15); BUN 17 mg/dL (7-18); BUN/Creat Ratio 19.7 RATIO (10-20); Calcium,Total 9.3 mg/dL (8.5-10.1); Chloride 111 mmol/L (98-107); Creatinine, Serum 0.86 mg/dL (0.70-1.30); EST Glomerular Filtration Rate 90 mL/min (>60); Est Glom Filt Rate - Afr Amer 109 mL/min (>60); Globulin 3.7 g/dL (2.2-4.2); Glucose 99 mg/dL (74-106); Potassium 4.3 mmol/L (3.5-5.1); Protein, Total 7.2 g/dL (6.4-8.2); Sodium Level 142 mmol/L (136-145); Thyroid Stim Hormone (TSH) 3.03 uIU/mL (0.358-3.74); Uric Acid 2.7 mg/dL (3.5-7.2)
== END 2021-10-31 23:59 | disposition home or self-care (01) ==
PROVIDERS: PCP Family Medicine Geriatric Medicine; Visit Provider Family Medicine Geriatric Medicine
DX: E11.65 Type 2 diabetes mellitus with hyperglycemia (principal); E55.9 Vitamin D deficiency, unspecified; I10 Essential (primary) hypertension; M10.9 Gout, unspecified
CPT/HCPCS: 36415; 80053; 82306; 84443; 84550; 85025

== ENCOUNTER 2021-12-04 16:43 | Outpatient (CLI) | payer MEDICARE, BC, SELFPAY ==
[2021-12-04 17:48] LABS: Absolute Lymphocyte Count 3.03 X10^3/uL (0.83-4.51); Absolute Neutrophil Count 5.9 X10^3/uL (2.0-7.7); Basophil# 0.04 X10^3/uL; Basophil% 0.4 % (0-1); Eosinophils% 2.9 % (0-5); Hematocrit 44.4 % (40-54); Hemoglobin 14.5 g/dL (13.0-16.5); Lymphocyte # 3.03 X10^3/ul (0.83-4.51); Lymphocyte % 29.6 % (19-41); Mean Corp Hgb Conc 32.7 g/dL (32-36); Mean Corpuscular Hgb 32.2 pg (27.0-32.0); Mean Corpuscular Volume 98.4 fL (80-94); Mean Platelet Vol. 10.5 fl (6.2-12.0); Monocyte# 0.92 X10^3/uL; NRBC Flagged by Analyzer 0 % (0-5); Neutrophil # 5.91 X10^3/uL (2.7-7.7); Neutrophil % 57.7 % (47-70); Platelet Count 236 K/mm3 (150-450); RBC Distribution Width CV 13.7 % (11.6-14.6); RBC Distribution Width SD 49.6 fl (35.1-43.9); Red Blood Count 4.51 M/mm3 (4.6-6.2); White Blood Count 10.2 K/mm3 (4.4-11.0)
[2021-12-04 18:36] LABS: Anion Gap 7 (5-15); BUN 14 mg/dL (7-18); BUN/Creat Ratio 15.4 RATIO (10-20); Calcium,Total 8.8 mg/dL (8.5-10.1); Chloride 110 mmol/L (98-107); Creatinine, Serum 0.91 mg/dL (0.70-1.30); Glucose 86 mg/dL (74-106); Potassium 4.6 mmol/L (3.5-5.1); Sodium Level 139 mmol/L (136-145)
[2021-12-11 18:23] LABS: EST Glomerular Filtration Rate 85 mL/min (>60); Est Glom Filt Rate - Afr Amer 103 mL/min (>60)
== END 2021-12-04 23:59 | disposition home or self-care (01) ==
LOC: POLAB3 16:45
PROVIDERS: PCP Family Medicine Geriatric Medicine; Visit Provider Family Medicine Geriatric Medicine
DX: N39.0 Urinary tract infection, site not specified (principal); G93.40 Encephalopathy, unspecified
CPT/HCPCS: 36415; 80048; 85025; 87086

== ENCOUNTER 2021-12-04 17:06 | Outpatient (CLI) | payer MEDICARE, BC, SELFPAY ==
--- NOTE | 2021-12-04 17:11 | CT_ITS ---
STUDY: CT BRAIN WITHOUT CONTRAST REASON FOR EXAM: Male, 80 years old. Headache after trauma RADIATION DOSAGE (If Supplied By Facility): CTDIvol = ( 44.99 ) mGy, DLP = ( 880.47 ) mGycm TECHNIQUE: Transaxial CT imaging of the brain was performed without administration of intravenous contrast material. Individualized dose optimization techniques were used for this CT. COMPARISON: 11/09/2019 FINDINGS: Normal soft tissue structures. Jerardo holes again noted in the parietal regions bilaterally There is mild cerebral atrophy with widening of the extra-axial spaces and ventricular dilatation. There are areas of decreased attenuation within the white matter tracts of the supratentorial brain, consistent with microvascular disease changes. Evidence of previous left MCA infarct with encephalomalacia. Old lacunar infarcts noted in the basal ganglia. Normal brainstem. There is mild cerebellar atrophy. There is no intracranial hemorrhage. There are no findings of an acute ischemic infarction. There is mucoperiosteal inflammatory disease of the paranasal sinuses consistent with moderate chronic sinusitis. CT/Brain/Head without Contrast IMPRESSION: Chronic involutional changes of the brain. No acute hemorrhage Old left MCA infarct Old lacunar infarcts in the basal ganglia Moderate paranasal sinusitis Electronically Signed: True Mercedes MD at 17:59 EDT ,
== END 2021-12-04 23:59 | disposition home or self-care (01) ==
LOC: CT 17:08
PROVIDERS: PCP Family Medicine Geriatric Medicine; Visit Provider Family Medicine Geriatric Medicine
DX: S09.90XA Unspecified injury of head, initial encounter (principal); G93.40 Encephalopathy, unspecified; N39.0 Urinary tract infection, site not specified
CPT/HCPCS: 36415; 70450; 80048; 85025; 87086

== ENCOUNTER 2022-04-29 18:37 | Observation (INO) | payer MEDICARE, BC, SELFPAY ==
[2022-04-29 18:39] VITALS: BP 192/65; PULSE 74; RESP 18; TEMP 36.7; O2SAT 97; BMI 25.3
--- NOTE | 2022-04-29 19:05 | CT_ITS ---
STUDY: CT BRAIN WITHOUT CONTRAST REASON FOR EXAM: Male, 81 years old. Fell 3 times within the past 24 hours. Weakness in legs. Patient on anticoagulation. RADIATION DOSAGE (If Supplied By Facility): CTDIvol = ( 44.99 ) mGy, DLP = ( 914.22 ) mGycm TECHNIQUE: Transaxial CT imaging of the brain was performed without administration of intravenous contrast material. Individualized dose optimization techniques were used for this CT. COMPARISON: 12/04/2021 FINDINGS: Normal soft tissue structures. There are remote ritika holes in both frontal temporal and posterior parietal regions. The calvarium is otherwise intact. There is moderate cerebral atrophy with widening of the extra-axial spaces and ventricular dilatation. Normal white matter tracts of the cerebral hemispheres. Large area of encephalomalacia in the left parietal region consistent with a remote infarct. Remote lacunar infarct of the left basal ganglia and right thalamus. Normal right basal ganglia and left Normal brainstem. Normal cerebellum. There is no intracranial hemorrhage. There are no findings of an acute ischemic infarction. There is mucoperiosteal reaction noted in the ethmoid air cells and bilateral maxillary sinus. Air-fluid levels are seen in the sphenoid sinuses. CT/Brain/Head without Contrast IMPRESSION: 1. Chronic involutional changes and remote infarct without evidence of acute intracranial or calvarial abnormality. There is no major interval change. 2. Stable sinusitis. Electronically Signed: Bart Baum DO at 19:52 EDT Reading Location ID and State: [id number] Tel [phone], Service support ,
--- NOTE | 2022-04-29 19:05 | EKG12_ITS ---
Test Reason : DYSRHYTHMIA Blood Pressure : / mmHG Vent. Rate : 074 BPM Atrial Rate : 043 BPM P-R Int : 000 ms QRS Dur : 138 ms QT Int : 418 ms P-R-T Axes : 000 043 -12 degrees QTc Int : 463 ms Atrial fibrillation Right bundle branch block Abnormal ECG Confirmed by JUAN CARDONA, GILL ([id number]), supervising editor trailer SILVA GASTON ([id number]) on 05/01/2022 6:19:17 AM Referred By: BALJINDER Confirmed By:GILL MARTINEZ MD
--- NOTE | 2022-04-29 19:07 | EDS_ITS ---
HPI History of Present Illness Chief Complaint: Weakness Informant: patient and family Narrative Narrative: Patient has had more falls than usual today. He arrives with his daughter also. He lives at home with his currently. His has the flu currently so did not come in. Patient has a history of instability of gait that has been worsening over the last 6 or more months. He has intermittent confusion. Today he is actually much more alert than normal. But he did fall a few times today. He states he just got weak and his legs gave out. Family states that this usually happens when he is not drinking fluids. He states he has not drank any today. He does not like drinking fluids because it makes him urinate and it is too hard for him to get up and go to the bathroom. Yet he denies any dysuria. He is not on Lasix or any diuretics. No history of CHF. He is on Eliquis still for history of A. fib. He did hit his head but he has no headache. In fact he hurts nowhere. He states he did not hurt himself on the falls. The family is m ostly concerned about injury to his head and dehydration. [facility] Medical History (Updated 04/29/22 @ 21:[address] 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 Noncompliance with CPAP treatment MELISSA (obstructive sleep apnea) Home Medications allopurinol 300 mg tablet 300 mg PO DAILY gout 12/05/17 [History Last Taken 11/09/19] carvedilol 6.25 mg tablet 3.125 mg PO BID heart/blood pressure 12/05/17 [History Last Taken 11/09/19] paroxetine HCl 10 mg tablet 40 mg PO QHS anxiety 12/05/17 [History Last Taken 11/09/19] acetaminophen 325 mg tablet (Tylenol) 650 mg PO Q6H PRN PRN Mild Pain (0- 3/10)/Headache 12/19/17 [Rx Last Taken Unknown] apixaban 5 mg tablet 5 mg PO BID #60 tabs 12/19/17 [Rx Last Taken 11/08/19] isosorbide mononitrate 20 mg tablet 10 mg PO BID 12/19/17 [Rx Last Taken 11/09/19] atorvastatin 40 mg tablet 40 mg PO QHS 11/09/19 [History Last Taken 11/08/19] levothyroxine 25 mcg tablet 25 mcg PO DAILY 11/09/19 [History Last Taken 11/09/19] metformin 500 mg tablet,extended release 24 hr 500 mg PO BID 11/09/19 [History Last Taken 11/09/19] Allergy/AdvReac Type Severity Reaction Status Date / Time hydrochlorothiazide Allergy Other Verified 04/29/22 18:50 Penicillins [PCN] Allergy Hives Verified 04/29/22 18:50 Surgical History (Updated 04/29/22 @ 19:[address] Spring Munguia MD) History of mandibular surgery Hx of craniotomy Social History household members: spouse Smoking Status: Never smoker alcohol intake: never substance use type: does not use ROS ROS ED Constitutional Constitutional ED: Denies chills or fever(s) Eyes Eyes: Denies change in vision ENT ENT ED: Denies sore throat Cardiovascular Cardiovascular: Denies chest pain, palpitations or racing heartbeat Respiratory/Chest Respiratory/Chest: Denies cough or dyspnea Gastrointestinal Gastrointestinal: Denies abdominal pain, melena, nausea or vomiting Genitourinary Genitourinary ED: Denies dysuria or hematuria Musculoskeletal Musculoskeletal: Denies arthralgias, back pain, myalgias or neck pain Integumentary Denies rash Neurologic Neurologic: Denies headache(s) Endocrine Endocrinology: Denies polydipsia or polyuria Hematologic/Lymphatic Hematologic/Lymphatic: Reports easy bleeding and easy bruising Allergic/Immunologic Allergic/Immunologic ED: Denies urticaria EXAM Physical Exam Const Vital Signs: 04/29/22 18:39 04/29/22 18:46 04/29/22 20:38 Temperature 98.1 F Temperature Source Oral Pulse Rate 74 63 Respiratory Rate 18 22 H Respiratory Effort Normal Blood Pressure 192/65 H 179/77 H Blood Pressure Mean 107 111 Pulse Ox 97 96 Oxygen Delivery Method Room Air Room Air Positive well nourished and well developed General Appearance ED: well developed and NAD HEENT Reports moist mucous membranes HEENT Narrative: There is a slight abrasion to his left upper forehead. But no swelling. No laceration. He has prior scars. Eyes EOMs intact bilaterally Neck supple Neck Narrative: No pain with range of motion General: Negative for tenderness Chest Wall inspection of chest normal Resp normal respiratory effort Auscultation: Negative for rales, rhonchi or wheezes Cardio regular rate Rhythm: abnormal rhythm irregularly irregular GI normal to inspection, nondistended, normoactive bowel sounds and non-tender Palpation: soft Back/Spine no CVA tenderness Back/Spine Narrative: No tenderness of cervical thoracic or lumbar spine. Extremity Extremity Narrative: No tenderness of the upper or lower extremities. There is minimal abrasion on the right anterior espinoza. No hip pain or pain with range of motion. Neuro oriented x3 Neuro Narrative: Patient has some difficulty speech that stutters. But this is his typical pattern. He is awake alert appropriate. Psych mental status grossly normal Psych Narrative: Very well today per the family. MDM MDM MDM Narrative Medical decision making narrative: Patient's labs show relatively normal CBC. Electrolytes show no marked abnormalities. Urine overall looks clean. CT is in head showed no acute process. COVID and influenza were negative. We tried to walk the patient. But it was a significant failure. He walked from the bed to the room which is about 5 or 6 feet. He could barely make it back using assistance of staff and a walker. He always has some gait instability but this is much worse in a much shorter distance than his normal. His family states that every couple years he gets very weak like this they think it is because he is probably not eating and drinking as well since his is at home ill. He has come in the hospital for hydration improved diet and sometimes short rehab and done well. I did discuss this with the hospitalist. Lab Data Attestation: I reviewed the patient's lab results. Labs: Laboratory Results - last 24 hr 04/29/22 04/29/22 04/29/22 18:44 18:44 19:50 WBC 10.6 RBC 4.39 L Hgb 14.1 Hct 43.1 MCV 98.2 H MCH 32.1 H MCHC 32.7 RDW Std Deviation 50.2 H RDW Coeff of Ora 13.9 Plt Count 244 MPV 10.5 Immature Gran % (Auto) 0.400 Neut % (Auto) 63.8 Lymph % (Auto) 26.0 [place] % (Auto) 8.3 Eos % (Auto) 1.3 Baso % (Auto) 0.2 Absolute Neuts (auto) 6.8 Absolute Lymphs (auto) 2.75 Nucleated RBC % 0 Sodium 141 Potassium 4.0 Chloride 109 H Carbon Dioxide 28.0 Anion Gap 4 L BUN 13 Creatinine 0.88 Estim Creat Clear Calc 69.81 Est GFR (MDRD) Af Amer 106 Est GFR (MDRD) Non-Af 88 BUN/Creatinine Ratio 14.8 Glucose 120 H Calcium 9.4 Troponin I High Sens 19 Urine Color Yellow Urine Clarity Clear Urine pH 6.0 Ur Specific [place] 1.020 Urine Protein 100 H Urine Glucose (UA) Normal Urine Ketones Negative Urine Occult Blood 25 H Urine Nitrite Negative Urine Bilirubin Negative Urine Urobilinogen 1 H Ur Leukocyte Esterase Negative Urine RBC 0-5 SEEN Urine WBC 0 SEEN Ur Squamous Epith Cells 0 SEEN Urine Bacteria RARE Urine Mucus 0 SEEN Radiography Diagnostic Testing: Clinical Impression(s) from Imaging Studies Brain CT 04/29/22 19:05 IMPRESSION: 1. Chronic involutional changes and remote infarct without evidence of acute intracranial or calvarial abnormality. There is no major interval change. 2. Stable sinusitis. Electronically Signed: Bart Baum DO at 19:52 EDT Reading Location ID and State: [address] [place] [address] Tel [phone], Service support , EKG Initial EKG: Comments: EKG done for atrial fibrillation read by me shows atrial fibrillation with overall rate of 74. No ventricular ectopy. No acute ST elevation or depression. There is a slight right bundle branch block. QRS duration is slightly long. QTc is within high limits of normal at 463 ms. Discharge Plan Triage Chief Complaint: Weakness ED Provider: Regan Brown Dx/Rx/DC Orders Clinical Impression: Multiple falls, Unable to ambulate, Generalized weakness Prescriptions: No Action carvedilol 6.25 MG tablet 3.125 mg PO BID paroxetine HCl 10 MG tablet 40 mg PO QHS allopurinol 300 MG tablet 300 mg PO DAILY Label Comments: for gout acetaminophen [Tylenol] 325 MG tablet 650 mg PO Q6H PRN PRN (Reason: Mild Pain (0-3/10)/Headache) 0RF isosorbide mononitrate 20 MG tablet 10 mg PO BID 0RF Label Comments: for BP apixaban 5 MG tablet 5 mg PO BID Qty: 60 0RF Label Comments: blood thinner atorvastatin 40 MG tablet 40 mg PO QHS metformin 500 MG tablet extended release 24 hr 500 mg PO BID levothyroxine 25 MCG tablet 25 mcg PO DAILY Primary Care Provider: Lewis Carrasquillo Chi Referrals: Lewis Carrasquillo Chi, MD [Primary Care Provider] - Disposition Disposition: Acute Care Hospital [facility]
[2022-04-29 19:26] LABS: Absolute Lymphocyte Count 2.75 X10^3/uL (0.83-4.51); Absolute Neutrophil Count 6.8 X10^3/uL (2.0-7.7); Basophil# 0.02 X10^3/uL; Basophil% 0.2 % (0-1); Eosinophil# 0.14 X10^3/uL; Eosinophils% 1.3 % (0-5); Hematocrit 43.1 % (40-54); Hemoglobin 14.1 g/dL (13.0-16.5); Lymphocyte # 2.75 X10^3/ul (0.83-4.51); Mean Corp Hgb Conc 32.7 g/dL (32-36); Mean Corpuscular Hgb 32.1 pg (27.0-32.0); Mean Corpuscular Volume 98.2 fL (80-94); Mean Platelet Vol. 10.5 fl (6.2-12.0); Monocyte# 0.88 X10^3/uL; Monocyte% 8.3 % (0-10); NRBC Flagged by Analyzer 0 % (0-5); Neutrophil # 6.76 X10^3/uL (2.7-7.7); Neutrophil % 63.8 % (47-70); Platelet Count 244 K/mm3 (150-450); RBC Distribution Width CV 13.9 % (11.6-14.6); RBC Distribution Width SD 50.2 fl (35.1-43.9); Red Blood Count 4.39 M/mm3 (4.6-6.2); White Blood Count 10.6 K/mm3 (4.4-11.0)
[2022-04-29 19:44] LABS: Anion Gap 4 (5-15); BUN 13 mg/dL (7-18); BUN/Creat Ratio 14.8 RATIO (10-20); Calcium,Total 9.4 mg/dL (8.5-10.1); Chloride 109 mmol/L (98-107); Creatinine, Serum 0.88 mg/dL (0.70-1.30); EST Glomerular Filtration Rate 88 mL/min (>60); Est Glom Filt Rate - Afr Amer 106 mL/min (>60); Estimated Creatinine Clearance 69.81 ml/min; Glucose 120 mg/dL (74-106); Sodium Level 141 mmol/L (136-145); Troponin-I HS 19 pg/mL (3.0-78.0)
[2022-04-29 19:56] LABS: Mucous, Urine 0 SEEN /hpf (<or=2+); Squamous Epithelial Cells - UA 0 SEEN /hpf (0-5); White Blood Cells 0 SEEN /hpf (0-5)
[2022-04-29 19:59] LABS: Color, Urine Yellow (Yellow); Glucose, Dipstick Normal (Normal); Ketone-Dipstick Negative (Negative); Leukocyte Esterase-Dipstick Negative /ul (Negative); Nitrite-Dipstick Negative (Negative); Occult Blood-Urine 25 /ul (Negative); Protein-Dipstick 100 mg/dl (Negative); Urine Bilirubin Dipstick Negative (Negative); Urine Clarity Clear (Clear); Urine Urobilinogen 1 mg/dl (Normal)
[2022-04-29 20:22] LABS: Bacteria RARE /hpf (None Seen); Red Blood Cells-Urine 0-5 SEEN /hpf (0-5)
[2022-04-29 20:38] VITALS: BP 179/77; PULSE 63; RESP 22; O2SAT 96
--- NOTE | 2022-04-29 21:15 | PCM.HP.STD ---
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 Patient/family denies any recent significant illness, fever, chills, nausea, emesis, dysuria, cough or dyspnea. Patient's did recently fall ill with from discussion concerning symptoms for possibly COVID however patient has had no symptoms and tested negative. Patient's family who is present reports that he would benefit greatly from transition to at least assisted living but his and potentially him lesser so per their report have been resistant to this potential transition. Work-up in the ED included T98.1, heart rate 74, BP 192/65, respiratory rate 18, 97% on room air, CBC with WC 10.6, hemoglobin 14.1, platelet 244 without marked shift, BMP with chloride 109, glucose 120 otherwise unremarkable, troponin 19, urinalysis with specific remedy 1.020 otherwise no obvious evidence of UTI, CT of the brain with chronic involutional changes and evidence of a remote infarct without any evidence of acute intracranial or calvarial abnormality, stable sinusitis, rapid COVID antigen negative. [facility] Medical History (Updated 04/29/22 @ 21:[address] 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 Noncompliance with CPAP treatment MELISSA (obstructive sleep apnea) Home Medications allopurinol 300 mg tablet 300 mg PO DAILY gout 12/05/17 [History Last Taken 11/09/19] carvedilol 6.25 mg tablet 3.125 mg PO BID heart/blood pressure 12/05/17 [History Last Taken 11/09/19] paroxetine HCl 10 mg tablet 40 mg PO QHS anxiety 12/05/17 [History Last Taken 11/09/19] acetaminophen 325 mg tablet (Tylenol) 650 mg PO Q6H PRN PRN Mild Pain (0-3/10)/Headache 12/19/17 [Rx Last Taken Unknown] apixaban 5 mg tablet 5 mg PO BID #60 tabs 12/19/17 [Rx Last Taken 11/08/19] isosorbide mononitrate 20 mg tablet 10 mg PO BID 12/19/17 [Rx Last Taken 11/09/19] atorvastatin 40 mg tablet 40 mg PO QHS 11/09/19 [History Last Taken 11/08/19] levothyroxine 25 mcg tablet 25 mcg PO DAILY 11/09/19 [History Last Taken 11/09/19] metformin 500 mg tablet,extended release 24 hr 500 mg PO BID 11/09/19 [History Last Taken 11/09/19] Allergy/AdvReac Type Severity Reaction Status Date / Time hydrochlorothiazide Allergy Other Verified 04/29/22 18:50 Penicillins [PCN] Allergy Hives Verified 04/29/22 18:50 Family History (Updated 04/29/22 @ 21:[address] Spring Munguia MD) Mother COPD (chronic obstructive pulmonary disease) Father Post-polio syndrome Surgical History (Updated 04/29/22 @ 19:[address] Spring Munguia MD) History of mandibular surgery Hx of craniotomy Social History household members: spouse Smoking Status: Never smoker alcohol intake: never substance use type: does not use ROS ROS Narrative Admission Review of Systems: CONSTITUTIONAL: No weight loss, fever, chills, + weakness or fatigue. HEENT: Eyes: No visual loss, blurred vision, double vision or yellow sclerae. Ears, Nose, Throat: No hearing loss, sneezing, congestion, runny nose or sore throat. SKIN: No rash or itching, lesions, wounds. CARDIOVASCULAR: No chest pain, chest pressure or chest discomfort, palpitations, edema, orthopnea, syncopal events. RESPIRATORY: No shortness of breath, cough or sputum, wheezing, hemoptysis. GASTROINTESTINAL: No anorexia, nausea, vomiting or diarrhea, abdominal pain, melena, BRBPR. GENITOURINARY: No dysuria, frequency, urgency or retention. NEUROLOGICAL: + Hx CVA w/ chronic gait disturbance/instability, dysarthria, falls. No headache, dizziness, syncope, paralysis, change in bowel or bladder control, seizure. MUSCULOSKELETAL: + muscle, back pain, joint pain or stiffness. HEMATOLOGIC: + anemia, bleeding or bruising. LYMPHATICS: No enlarged nodes. No history of splenectomy. PSYCHIATRIC: + history of depression or anxiety. ENDOCRINOLOGIC: No reports of sweating, cold or heat intolerance. No polyuria or polydipsia. ALLERGIES: + history of hives. Vital Signs Vital Signs Vital Signs: 04/29/22 18:39 04/29/22 18:46 04/29/22 20:38 Temperature 98.1 F Temperature Source Oral Pulse Rate 74 63 Respiratory Rate 18 22 H Respiratory Effort Normal Blood Pressure 192/65 H 179/77 H Blood Pressure Mean 107 111 Pulse Ox 97 96 Oxygen Delivery Method Room Air Room Air Weight Weight: 186 lb 11.704 oz Body Mass Index (BMI) 25.3 Physical Exam Narrative Physical Examination: General: Awake, alert, oriented x 3, significant dysarthria with prior stroke, hard of hearing, remains cooperative, seated upright in ED bed, fatigued otherwise no distress. Skin: Normal color, normal turgor, no icterus, no cyanosis except occasional staged ecchymoses, stasis skin changes. HEENT: AT/NC, EOMI, PERRLA, dry MM, no carotid bruits or JVD noted. Lungs: Mildly diminished, greater bases, appropriate effort, no rales, ronchi or wheezing. Heart: Irregular; no gallop, rub audible. Abdomen: Soft, overweight, NTTP, ND, mildly hyperactive l BS, no HSM. Extremities: No cyanosis, clubbing, or edema. Neurological: Patient awake, alert, oriented as noted, cognitive function appears baseline intact, chronic gait instability, imbalance as well as notable dysarthria with prior CVA, pupils equally reactive to light and accommodation, cranial nerves grossly normal, moving all 4 extremities, strength moderately to severely globally decreased. Psychiatric: Affect appears mildly fatigued otherwise normal, no acute evidence of depressive or anxiety feelings but does have underlying history. Results Lab / Micro Data Result Diagrams: 04/29/22 18:44 04/29/22 18:44 Labs: Laboratory Results - last 24 hr 04/29/22 18:44: WBC 10.6, RBC 4.39 L, Hgb 14.1, Hct 43.1, MCV 98.2 H, MCH 32.1 H, MCHC 32.7, RDW Std Deviation 50.2 H, RDW Coeff of Ora 13.9, Plt Count 244, MPV 10.5, Immature Gran % (Auto) 0.400, Neut % (Auto) 63.8, Lymph % (Auto) 26.0, [place] % (Auto) 8.3, Eos % (Auto) 1.3, Baso % (Auto) 0.2, Absolute Neuts (auto) 6.8, Absolute Lymphs (auto) 2.75, Nucleated RBC % 0 04/29/22 18:44: Sodium 141, Potassium 4.0, Chloride 109 H, Carbon Dioxide 28.0, Anion Gap 4 L, BUN 13, Creatinine 0.88, Estim Creat Clear Calc 69.81, Est GFR (MDRD) Af Amer 106, Est GFR (MDRD) Non-Af 88, BUN/Creatinine Ratio 14.8, Glucose 120 H, Calcium 9.4, Troponin I High Sens 19 04/29/22 19:50: Urine Color Yellow, Urine Clarity Clear, Urine pH 6.0, Ur Specific [place] 1.020, Urine Protein 100 H, Urine Glucose (UA) Normal, Urine Ketones Negative, Urine Occult Blood 25 H, Urine Nitrite Negative, Urine Bilirubin Negative, Urine Urobilinogen 1 H, Ur Leukocyte Esterase Negative, Urine RBC 0-5 SEEN, Urine WBC 0 SEEN, Ur Squamous Epith Cells 0 SEEN, Urine Bacteria RARE, Urine Mucus 0 SEEN Micro: Microbiology 04/29/22 19:17 Nasal Secretion SARS-CoV-2 & FLU Antigen (Rapid) - Final Radiology Impression Brain CT 04/29/22 19:05 IMPRESSION: 1. Chronic involutional changes and remote infarct without evidence of acute intracranial or calvarial abnormality. There is no major interval change. 2. Stable sinusitis. 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 #1. Frequent mechanical falls, failure to thrive adult: Given patient's debility, frequent falls and difficulty caring for self at this time appropriate to bring in, maintain on medical surgical floor, maintain on fall and aspiration precautions, given significant fall history continued usage of apixaban is a high risk however if plan transition to skilled facility and may consider using however if falls at facility then will de-escalate off this regimen given risk-benefit ratio, PT/OT/case management consultation for discharge planning. #2. PAF: We will continue patient home Coreg and apixaban regimen, maintain on fall precautions especially given prior history of SDH status postcraniotomy. 12/05/17 ECHO w/ normal LV size, normal LV systolic function, EF 55%, LA moderately large, mild to moderate TVI. We will continue home apixaban however cautiously and if ongoing falls once transitions to facility with more aggressive assistance then certainly would need to be discontinued, continue Coreg, regimen. #3. Hypertension: Continue home regimen including Coreg, isosorbide with hold parameters as needed, PRN hydralazine. #4. Hyperlipidemia: We will continue patient on statin therapy. #5. Hypothyroidism: We will continue patient on levothyroxine regimen. #6. Anxiety depression: We will continue patient home paroxetine regimen. #7. Restless leg syndrome: We will continue patient home nightly pramipexole regimen. #8. Gout: We will continue patient home allopurinol regimen. #9. Diabetes mellitus type II: Hold oral home regimen, ADA diet, accu checks w/ ISS. #10. History SDH: Status post prior craniotomy, maintain on fall precautions especially given anticoagulant history and as noted once transition to skilled facility if ongoing falls despite more aggressive assistance then would de-escalate off of anticoagulant. #11. 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 #12. MELISSA: Noncompliant with CPAP, continue to encourage especially given underlying history. #13. DVT prophylaxis: SCDs, continue home apixaban regimen with parameters as noted. #14. CODE status: Patient JONATHAN is his eldest son Placido and living will is currently in place. Discussed CODE status at length including difference between FULL code, DNR-CCA and DNR-CC status. Following discussions about the differences in these status, requested DNR-CCA, no intubation status. Advanced Care Planning Face to Face Time: 16 minutes. Charges/Coding Visit Charges OBSV E&M: 03025 Initial observation care L3 Procedures Hospitalists Procedures: 93166 Advncd Care Plan 30 Min
[2022-04-29 22:11] VITALS: BP 172/78; PULSE 82; RESP 15; TEMP 36.9; O2SAT 92
[2022-04-29 22:41] VITALS: BP 185/85; PULSE 68; RESP 20; O2SAT 99
[2022-04-29 23:25] VITALS: BP 184/73; PULSE 68; RESP 18; TEMP 36.7; O2SAT 99
[2022-04-29 23:26] VITALS: BMI 25.0
[2022-04-30] MEDS: 0.9% Normal Saline 1,000 ML 100 ML IV (00:03)
[2022-04-30] MEDS: 0.9% Saline Lock 10 ML Syringe IV (00:04)
[2022-04-30] MEDS: Carvedilol 3.125 MG TABLET PO ×2 (00:18→09:13)
[2022-04-30] MEDS: APIXABAN 5 MG TABLET PO ×2 (00:19→09:13)
[2022-04-30] MEDS: Paroxetine 20 MG Tablet 40 MG PO (00:19)
[2022-04-30] MEDS: Atorvastatin Calcium 40 MG Tablet PO (00:19)
[2022-04-30] MEDS: Isosorbide Mononitrate 20 MG Tablet 10 MG PO ×2 (00:19→09:12)
[2022-04-30] MEDS: Menthol/Lanolin/Calamine/Znox 113 GM Tube 1 APPLIC TOPICAL ×3 (00:19→16:43)
[2022-04-30 00:50] LABS: Bedside Glucose 153 mg/dL (74-106)
[2022-04-30 03:25] VITALS: BP 178/87; PULSE 69; RESP 20; TEMP 36.7; O2SAT 99
[2022-04-30] MEDS: Nystatin Powder 15gm Bottle 1 APPLIC TOPICAL ×2 (03:25→09:12)
[2022-04-30] MEDS: hydrALAZINE 20 MG/ML Vial 10 MG IV (03:25)
[2022-04-30 05:20] VITALS: BP 147/74
[2022-04-30] MEDS: Levothyroxine 25 MCG TABLET PO (06:39)
[2022-04-30 07:05] LABS: Bedside Glucose 122 mg/dL (74-106)
--- NOTE | 2022-04-30 07:11 | PN.HOSP_ITS ---
Subjective Subjective Mumbles incoherently. Objective Data Objective Data Vital Signs: Vital Signs Temp Pulse Resp BP Pulse Ox O2 Del Method 36.7 C 69 20 H 147/74 H 99 Room Air 04/30/22 03:25 04/30/22 03:25 04/30/22 03:25 04/30/22 05:20 04/30/22 03:25 04/30/22 03:25 Oxygen Delivery Method Room Air Weight: 84.096 kg Body Mass Index (BMI) 25.0 Intake & Output: Intake and Output for Last 24 Hours 04/28/22 04/29/22 04/30/22 23:59 23:59 23:59 Intake Total 500 / 500 680 / 680 Output Total 50 / 50 Balance 500 / 500 630 / 630 Lab / Micro Data Result Diagrams: 04/29/22 18:44 04/29/22 18:44 Labs: Laboratory Results - last 24 hr 04/29/22 18:44: WBC 10.6, RBC 4.39 L, Hgb 14.1, Hct 43.1, MCV 98.2 H, MCH 32.1 H , MCHC 32.7, RDW Std Deviation 50.2 H, RDW Coeff of Ora 13.9, Plt Count 244, MPV 10.5, Immature Gran % (Auto) 0.400, Neut % (Auto) 63.8, Lymph % (Auto) 26.0, [place] % (Auto) 8.3, Eos % (Auto) 1.3, Baso % (Auto) 0.2, Absolute Neuts (auto) 6.8, Absolute Lymphs (auto) 2.75, Nucleated RBC % 0 04/29/22 18:44: Sodium 141, Potassium 4.0, Chloride 109 H, Carbon Dioxide 28.0, Anion Gap 4 L, BUN 13, Creatinine 0.88, Estim Creat Clear Calc 69.81, Est GFR (MDRD) Af Amer 106, Est GFR (MDRD) Non-Af 88, BUN/Creatinine Ratio 14.8, Glucose 120 H, Calcium 9.4, Troponin I High Sens 19 04/29/22 19:50: Urine Color Yellow, Urine Clarity Clear, Urine pH 6.0, Ur Specific [place] 1.020, Urine Protein 100 H, Urine Glucose (UA) Normal, Urine Ketones Negative, Urine Occult Blood 25 H, Urine Nitrite Negative, Urine Bilirubin Negative, Urine Urobilinogen 1 H, Ur Leukocyte Esterase Negative, Urine RBC 0-5 SEEN, Urine WBC 0 SEEN, Ur Squamous Epith Cells 0 SEEN, Urine B acteria RARE, Urine Mucus 0 SEEN 04/30/22 00:23: POC Glucose 153 H 04/30/22 06:38: POC Glucose 122 H Micro: Microbiology 04/29/22 19:17 Nasal Secretion SARS-CoV-2 & FLU Antigen (Rapid) - Final Radiography Diagnostic Testing: Radiology Impression Brain CT 04/29/22 19:05 IMPRESSION: 1. Chronic involutional changes and remote infarct without evidence of acute intracranial or calvarial abnormality. There is no major interval change. 2. Stable sinusitis. Electronically Signed: Bart Baum DO at 19:52 EDT Reading Location ID and State: [address] [place] [address] Tel [phone], Service support , Physical Exam Const alert and no apparent distress Constitutional Narrative: up in chair Resp normal respiratory effort, no retractions, no use of accessory muscles and clear to auscultation bilaterally Cardio regular rate, regular rhythm, S1 normal heart sound and S2 normal heart sound GI normal to inspection, nondistended, normoactive bowel sounds Assessment & Plan Assessment/Plan (1) Falls frequently: (2) Failure to thrive: PLAN: Plan The patient is an 81 y/o M w/ PMHx: PAF, 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 ED on 04/29/22 with history of living at home with his with unfortunate increased falls over the last several days with significant debility and weakness prompting family to bring him in secondary to concerns over ability to care for herself safely at home. #1. Frequent mechanical falls, failure to thrive adult: Given patient's debility, frequent falls and difficulty caring for self at this time appropriate to bring in, maintain on medical surgical floor, maintain on fall and aspiration precautions, given significant fall history continued usage of apixaban is a high risk however if plan transition to skilled facility and may consider using however if falls at facility then will de-escalate off this regimen given risk- benefit ratio, PT/OT/case management consultation for discharge planning. #2. PAF: We will continue patient home Coreg and apixaban regimen, maintain on fall precautions especially given prior history of SDH status postcraniotomy. 12/05/17 ECHO w/ normal LV size, normal LV systolic function, EF 55%, LA moderately large, mild to moderate TVI. We will continue home apixaban however cautiously and if ongoing falls once transitions to facility with more aggressive assistance then certainly would need to be discontinued, continue Coreg, regimen. #3. Hypertension: Continue home regimen including Coreg, isosorbide with hold parameters as needed, PRN hydralazine. #4. Hyperlipidemia: We will continue patient on statin therapy. #5. Hypothyroidism: We will continue patient on levothyroxine regimen. #6. Anxiety depression: We will continue patient home paroxetine regimen. #7. Restless leg syndrome: We will continue patient home nightly pramipexole regimen. #8. Gout: We will continue patient home allopurinol regimen. #9. Diabetes mellitus type II: Hold oral home regimen, ADA diet, accu checks w/ ISS. #10. History SDH: Status post prior craniotomy, maintain on fall precautions especially given anticoagulant history and as noted once transition to skilled facility if ongoing falls despite more aggressive assistance then would de- escalate off of anticoagulant. #11. 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 #12. MELISSA: Noncompliant with CPAP, continue to encourage especially given underlying history. #13. DVT prophylaxis: SCDs, continue home apixaban regimen with parameters as noted. #14. CODE status: Patient JONATHAN is his eldest son Placido and living will is currently in place. Discussed CODE status at length including difference between FULL code, DNR-CCA and DNR-CC status. Following discussions about the differences in these status, requested DNR-CCA, no intubation status. Advanced Care Planning Face to Face Time: Charges/Coding Visit Charges OBSV E&M: 19605 Subsequent observation care L2
[2022-04-30 08:59] VITALS: BP 143/70; PULSE 63; RESP 18; TEMP 37.2; O2SAT 96
[2022-04-30] MEDS: Allopurinol 300 MG Tablet PO (09:13)
[2022-04-30 11:15] VITALS: O2SAT 96
--- NOTE | 2022-04-30 11:27 | CASEMGMT ---
Social Work SW in to pt room to meet and discuss discharge planning. Introduced self and role at the hospital. Pt presented confused, could not provide this SW with an idea where he was. After discussion pt did confirm he recognized the hospital but stated does not know why he is here. Pt was soft spoken with garbled speech. SW asked pt if he felt confused and pt confirmed yes. SW offered support. SW called pt , Yudelka, to discuss SNF. Patient was provided a printed list from [facility] of?SNF?providers including quality and resource use data that is consistent with the patient?s preferred geographic region, medical needs, and insurance network. The patient?s preferred provider is [facility]. Second choice is [facility]. Yudelka stated pt's son would be in today to visit with pt. SW infomed the list of SNF providers would be left in pt room for family to review. Yudelka voiced understanding. SW updated pt choice in [facility] and updated Discharge surgical first assistant, Natalie, of pt choice. Natalie to send referral to [facility]. PLAN: [facility], for [facility]
--- NOTE | 2022-04-30 11:53 | CASEMGMT ---
Addendum entered by Natalie Pearce 04/30/22 15:10: Discharge Health Therapist Natalie d/dionicio recreational assistant called Sherri at [facility]. Natalie let Sherri know referral has been pending for almost 4 hours. Sherri stated she still does not have an answer for me. Plan: [facility] Natalie Pearce Discharge Health Therapist Addendum entered by Natalie Pearce 04/30/22 14:30: Discharge Health Therapist Sherri from [facility] reached out and asked if patient would be short term. Natalie asked if patient was accepted and Sherri said referral is still being reviewed. Plan: [facility], Waiting Acceptance Natalie Pearce Discharge Health Therapist Addendum entered by Natalie Pearce 04/30/22 13:11: Discharge Health Therapist Sherri reached out. Referral is now being reviewed. Natalie Pearce Discharge Health Therapist Addendum entered by Natalie Pearce 04/30/22 13:07: Discharge Health Therapist Natalie has called Sherri with [facility] and no answer. Natalie left a voicemail and also called Sherri cellphone with no answer. Referral still has not been opened on [facility]. Plan: [facility], Waiting Acceptance Natalie Pearce Discharge Health Therapist Addendum entered by Natalie Pearce 04/30/22 12:13: Discharge Health Therapist Natalie called [facility] and left a message to let admissions know we sent a referral via [facility] as the referral has not been open yet. Plan: [facility], Waiting Acceptance Natalie Pearce Discharge Health Therapist Original Note: Discharge Health Therapist Natalie gan/dionicio recreational assistant sent referral to [facility] via [facility]. Natalie will follow up. Plan: [facility], Waiting Acceptance Natalie Pearce Discharge Health Therapist
[2022-04-30 12:05] LABS: Bedside Glucose 150 mg/dL (74-106)
--- NOTE | 2022-04-30 15:13 | CASEMGMT ---
Discharge Sugar Cane Planter Machine Operator Sherri called from [facility]. [facility] will not have a bed until Saturday due to Covid. Natalie will send referral to [facility]. VINEET Jenninsg notified. Plan: [facility], Waiting Acceptance Natalie Pearce Discharge Sugar Cane Planter Machine Operator
--- NOTE | 2022-04-30 15:29 | CASEMGMT ---
Discharge Funeral Service Apprentice [facility] reached out. Patient has been accepted at [facility] and can go when medically ready. VINEET Jennings notified. Plan: [facility] Discharge Funeral Service Apprentice
--- NOTE | 2022-04-30 15:49 | TREXTCAR_ITS ---
Diet Diet Order/Speech Therapy: 04/29/22 23:24 Diet: Consistent Carb - Calorie Controlled Food consistency:: Regular Liquid Consistency:: Regular/Thin Type of Dietary Supplement:: Glucerna Shake How many daily calories?: 1800 calorie Routine Orders/Code Status Code Status: DNRCC-A (no intubation) Therapies Weight Bearing: Full weight bearing Physical Therapy: Eval and Treat Occupational Therapy: Eval and Treat Speech Therapy: Eval and Treat Problem/Diagnosis (1) Falls frequently: Status: Acute Code(s): R29.6 - Repeated falls (2) Failure to thrive: Status: Acute Plan The patient is an 81 y/o M w/ PMHx: PAF, 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 #1. Frequent mechanical falls, failure to thrive adult: Given patient's debility, frequent falls and difficulty caring for self at this time appropriate to bring in, maintain on medical surgical floor, maintain on fall and aspiration precautions, given significant fall history continued usage of apixaban is a high risk however if plan transition to skilled facility and may consider using however if falls at facility then will de-escalate off this regimen given risk- benefit ratio, PT/OT/case management consultation for discharge planning. #2. PAF: We will continue patient home Coreg and apixaban regimen, maintain on fall precautions especially given prior history of SDH status postcraniotomy. 12/05/17 ECHO w/ normal LV size, normal LV systolic function, EF 55%, LA moderately large, mild to moderate TVI. We will continue home apixaban however cautiously and if ongoing falls once transitions to facility with more aggressive assistance then certainly would need to be discontinued, continue Coreg, regimen. #3. Hypertension: Continue home regimen including Coreg, isosorbide with hold parameters as needed, PRN hydralazine. #4. Hyperlipidemia: We will continue patient on statin therapy. #5. Hypothyroidism: We will continue patient on levothyroxine regimen. #6. Anxiety depression: We will continue patient home paroxetine regimen. #7. Restless leg syndrome: We will continue patient home nightly pramipexole regimen. #8. Gout: We will continue patient home allopurinol regimen. #9. Diabetes mellitus type II: Hold oral home regimen, ADA diet, accu checks w/ ISS. #10. History SDH: Status post prior craniotomy, maintain on fall precautions especially given anticoagulant history and as noted once transition to skilled facility if ongoing falls despite more aggressive assistance then would de- escalate off of anticoagulant. #11. 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 #12. MELISSA: Noncompliant with CPAP, continue to encourage especially given underlying history. #13. CODE status: Patient JONATHAN is his eldest son Placido and living will is currently in place. Discussed CODE status at length including difference between FULL code, DNR-CCA and DNR-CC status. Following discussions about the differences in these status, requested DNR-CCA, no intubation status. Advanced Care Planning Face to Face Time: Allergies/Procedures Done in Hospital Allergies hydrochlorothiazide Allergy (Verified 04/29/22 18:50) Other confusion Penicillins [PCN] Allergy (Verified 04/29/22 18:50) Hives Type of Care/Length of Stay Estimated LOS: Convalescent Care Less Than 30 days Type of Care Needed: Skilled Rehab Potential: Fair Prognosis: Fair Additional Orders/Day of Discharge Day of Discharge: 04/30/22 Dietary and Speech Recommendations Dietitian Recommendations/Changes: Continue 1800kcal Consistent Carbohydrate diet Discharge Plan Admission Admit Date/Time: 04/29/22 21:20 Primary Reason for Your Visit: Failure to thrive Attending Provider: Rickey Garcia Primary Care Provider: Lewis Carrasquillo Chi Consulting Providers: Spring Munguia Discharge Orders/Prescriptions Prescriptions: New melatonin 3 mg Tablet 3 mg PO QHS PRN PRN (Reason: Insomnia) Qty: 10 0RF nystatin [Nyamyc] 100,000 unit/gram Powder 1 applic topical BID Qty: 15 0RF Protocol: *Topical Application Instructions APPLICATION INSTRUCTIONS: apply to groin Continued carvedilol 6.25 MG tablet 3.125 mg PO BID allopurinol 300 MG tablet 300 mg PO DAILY Label Comments: for gout acetaminophen [Tylenol] 325 MG tablet 650 mg PO Q6H PRN PRN (Reason: Mild Pain (0-3/10)/Headache) 0RF isosorbide mononitrate 20 MG tablet 10 mg PO BID 0RF Label Comments: for BP apixaban 5 MG tablet 5 mg PO BID Qty: 60 0RF Label Comments: blood thinner atorvastatin 40 MG tablet 40 mg PO QHS metformin 500 MG tablet extended release 24 hr 500 mg PO BID levothyroxine 25 MCG tablet 25 mcg PO DAILY paroxetine HCl 10 MG tablet 40 mg PO QHS Qty: 30 0RF Referrals / Follow Up: Lewis Carrasquillo Chi, MD [Primary Care Provider] - Within 2 Weeks Disposition Disposition (needs filled in before D/C Order can be placed): Custodial Facility
--- NOTE | 2022-04-30 15:56 | DS.PCM_ITS ---
Providers Date of Admission: 04/29/22 Primary Care Physician: Dr. 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 ED on 04/29/22 with history of living at home with his with unfortunate increased falls over the last several days with significant debility and weakness prompting family to bring him in secondary to concerns over ability to care for herself safely at home. #1. Frequent mechanical falls, failure to thrive adult: Given patient's debility, frequent falls and difficulty caring for self at this time appropriate to bring in, maintain on medical surgical floor, maintain on fall and aspiration precautions, given significant fall history continued usage of apixaban is a high risk however if plan transition to skilled facility and may consider using however if falls at facility then will de-escalate off this regimen given risk- benefit ratio, PT/OT/case management consultation for discharge planning. #2. PAF: We will continue patient home Coreg and apixaban regimen, maintain on fall precautions especially given prior history of SDH status postcraniotomy. 12/05/17 ECHO w/ normal LV size, normal LV systolic function, EF 55%, LA moderately large, mild to moderate TVI. We will continue home apixaban however cautiously and if ongoing falls once transitions to facility with more aggressive assistance then certainly would need to be discontinued, continue Coreg, regimen. #3. Hypertension: Continue home regimen including Coreg, isosorbide with hold parameters as needed, PRN hydralazine. #4. Hyperlipidemia: We will continue patient on statin therapy. #5. Hypothyroidism: We will continue patient on levothyroxine regimen. #6. Anxiety depression: We will continue patient home paroxetine regimen. #7. Restless leg syndrome: We will continue patient home nightly pramipexole regimen. #8. Gout: We will continue patient home allopurinol regimen. #9. Diabetes mellitus type II: Hold oral home regimen, ADA diet, accu checks w/ ISS. #10. History SDH: Status post prior craniotomy, maintain on fall precautions especially given anticoagulant history and as noted once transition to skilled f acility if ongoing falls despite more aggressive assistance then would de- escalate off of anticoagulant. #11. 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 #12. MELISSA: Noncompliant with CPAP, continue to encourage especially given underlying history. #13. CODE status: Patient JONATHAN is his eldest son Placido and living will is currently in place. Discussed CODE status at length including difference between FULL code, DNR-CCA and DNR-CC status. Following discussions about the differences in these status, requested DNR-CCA, no intubation status. Advanced Care Planning Face to Face Time: Discussed with the patient's son and see the patient is medically stable. Did address the long-term possibilities including difficulty swallowing and did not directly address what he would want done in his current situations but operative consideration if you would want to consider his father for a feeding tube if that were to become necessary. I did express to him that has been concerned about his long-term decline as he is very debilitated at his current status and that may continue to decline. Medications at Discharge Home Medications allopurinol 300 mg tablet 300 mg PO DAILY gout 12/05/17 carvedilol 6.25 mg tablet 3.125 mg PO BID heart/blood pressure 12/05/17 acetaminophen 325 mg tablet (Tylenol) 650 mg PO Q6H PRN PRN Mild Pain (0-3/10)/Headache 12/19/17 apixaban 5 mg tablet 5 mg PO BID #60 tabs 12/19/17 isosorbide mononitrate 20 mg tablet 10 mg PO BID 12/19/17 atorvastatin 40 mg tablet 40 mg PO QHS 11/09/19 levothyroxine 25 mcg tablet 25 mcg PO DAILY 11/09/19 metformin 500 mg tablet,extended release 24 hr 500 mg PO BID 11/09/19 melatonin 3 mg tablet 3 mg PO QHS PRN PRN Insomnia #10 tabs 04/30/22 nystatin 100,000 unit/gram topical powder (Nyamyc) 1 applic topical BID #15 grams 04/30/22 paroxetine HCl 10 mg tablet 40 mg PO QHS anxiety #30 tabs 04/30/22 Hospital Course Operations None Procedures None Summary of Care Provided Minutes Spent on Discharge: 35 Weight / BMI Weight Weight: 84.096 kg Body Mass Index (BMI) 25.0 ABG / Lab / Microbiology Data Result Diagrams: 04/29/22 18:44 04/29/22 18:44 Laboratory: Laboratory Results - last 24 hr 04/29/22 18:44: WBC 10.6, RBC 4.39 L, Hgb 14.1, Hct 43.1, MCV 98.2 H, MCH 32.1 H , MCHC 32.7, RDW Std Deviation 50.2 H, RDW Coeff of Ora 13.9, Plt Count 244, MPV 10.5, Immature Gran % (Auto) 0.400, Neut % (Auto) 63.8, Lymph % (Auto) 26.0, Lamar % (Auto) 8.3, Eos % (Auto) 1.3, Baso % (Auto) 0.2, Absolute Neuts (auto) 6.8, Absolute Lymphs (auto) 2.75, Nucleated RBC % 0 04/29/22 18:44: Sodium 141, Potassium 4.0, Chloride 109 H, Carbon Dioxide 28.0, Anion Gap 4 L, BUN 13, Creatinine 0.88, Estim Creat Clear Calc 69.81, Est GFR (MDRD) Af Amer 106, Est GFR (MDRD) Non-Af 88, BUN/Creatinine Ratio 14.8, Glucose 120 H, Calcium 9.4, Troponin I High Sens 19 04/29/22 19:50: Urine Color Yellow, Urine Clarity Clear, Urine pH 6.0, Ur Specific [place] 1.020, Urine Protein 100 H, Urine Glucose (UA) Normal, Urine Ketones Negative, Urine Occult Blood 25 H, Urine Nitrite Negative, Urine Bilirubin Negative, Urine Urobilinogen 1 H, Ur Leukocyte Esterase Negative, Urine RBC 0-5 SEEN, Urine WBC 0 SEEN, Ur Squamous Epith Cells 0 SEEN, Urine Bacteria RARE, Urine Mucus 0 SEEN 04/30/22 00:23: POC Glucose 153 H 04/30/22 06:38: POC Glucose 122 H 04/30/22 11:39: POC Glucose 150 H Microbiology: Microbiology 04/29/22 19:17 Nasal Secretion SARS-CoV-2 & FLU Antigen (Rapid) - Final Radiography Diagnostic Testing: Radiology Impression Brain CT 04/29/22 19:05 IMPRESSION: 1. Chronic involutional changes and remote infarct without evidence of acute intracranial or calvarial abnormality. There is no major interval change. 2. Stable sinusitis. Electronically Signed: Bart Baum DO at 19:52 EDT Reading Location ID and State: [address] [place] [address] Tel [phone], Service support , Meaningful Use Info Meaningful Use Diagnoses (Choose all that apply): None applicable Discharge Plan Admission Admit Date/Time: 04/29/22 21:20 Primary Reason for Your Visit: Failure to thrive Attending Provider: Rickey Garcia Primary Care Provider: Lewis Carrasquillo Chi Consulting Providers: Spring Munguia Discharge Orders/Prescriptions Prescriptions: New melatonin 3 mg Tablet 3 mg PO QHS PRN PRN (Reason: Insomnia) Qty: 10 0RF nystatin [Nyamyc] 100,000 unit/gram Powder 1 applic topical BID Qty: 15 0RF Protocol: *Topical Application Instructions APPLICATION INSTRUCTIONS: apply to groin Continued carvedilol 6.25 MG tablet 3.125 mg PO BID allopurinol 300 MG tablet 300 mg PO DAILY Label Comments: for gout acetaminophen [Tylenol] 325 MG tablet 650 mg PO Q6H PRN PRN (Reason: Mild Pain (0-3/10)/Headache) 0RF isosorbide mononitrate 20 MG tablet 10 mg PO BID 0RF Label Comments: for BP apixaban 5 MG tablet 5 mg PO BID Qty: 60 0RF Label Comments: blood thinner atorvastatin 40 MG tablet 40 mg PO QHS metformin 500 MG tablet extended release 24 hr 500 mg PO BID levothyroxine 25 MCG tablet 25 mcg PO DAILY paroxetine HCl 10 MG tablet 40 mg PO QHS Qty: 30 0RF Referrals / Follow Up: Lewis Carrasuqillo Chi, MD [Primary Care Provider] - Within 2 Weeks Disposition Disposition (needs filled in before D/C Order can be placed): [facility] Facility Charges/Coding Visit Charges OBSV E&M: 25415 Observation care discharge
--- NOTE | 2022-04-30 16:30 | CASEMGMT ---
Social Work VINEET updated pt pt was denied at [facility]. Notified pt has been accepted at [facility]. voiced understanding. declined this SW calling other family to update information. SW completed full PASSR form in [employer] system. Updated pt that he will be transported to [facility] via [facility] at 6pm this evening via wheelchair van. understanding. VINEET faxed orders to [facility], Called to update that pt would be arriving shortly after transport time. [facility] rep Evelyn voiced understanding that he would be arriving today. VINEET faxed orders to [facility], placed copies on pt chart and put originals with envelope going with pt. VINEET updated pt nurse pt cannot go to [facility] until negative Covid result comes back. Kelly voiced understanding. Dispo: [facility], skilled level of care DINA Peña
[2022-04-30 16:45] VITALS: BP 151/78; PULSE 73; RESP 18; TEMP 37.2; O2SAT 95
[2022-04-30 17:40] LABS: Bedside Glucose 117 mg/dL (74-106)
== END 2022-04-30 18:10 ==
LOC: ED 21:27 → MS3 22:19
PROVIDERS: Admitting Provider Family Medicine; Emergency Provider Emergency Medicine; PCP Family Medicine Geriatric Medicine
DX: R62.7 Adult failure to thrive (principal); I48.91 Unspecified atrial fibrillation; E11.9 Type 2 diabetes mellitus without complications; E78.5 Hyperlipidemia, unspecified; E86.0 Dehydration; I10 Essential (primary) hypertension; R41.0 Disorientation, unspecified; Z79.899 Other long term (current) drug therapy; Z79.01 Long term (current) use of anticoagulants; G47.33 Obstructive sleep apnea (adult) (pediatric); Z91.19 Patient's noncompliance with other medical treatment and regimen; N40.0 Benign prostatic hyperplasia without lower urinary tract symptoms; M10.9 Gout, unspecified; F41.9 Anxiety disorder, unspecified; F32.A Depression, unspecified; Z79.84 Long term (current) use of oral hypoglycemic drugs; I69.322 Dysarthria following cerebral infarction
CPT/HCPCS: 70450; 80048; 81001; 82962; 84484; 85025; 87428; 87811; 93005; 96360; 96361; 96374; 97162; 97166; 99218; 99251; 99285; J7030; A4216; G0378; G0463